=== PATIENT | female | born 1930 | race Caucasian/White ===

== ENCOUNTER 2017-01-20 08:57 | Outpatient (CLI) ==
[2015-08-06 19:55] VITALS: BMI 22.6
[2017-01-20 12:48] LABS: BASOPHILS # (AUTO) 0.1 K/uL (0-0.2); BASOPHILS % (AUTO) 0.8 % (0.0-3.0); EOSINOPHILS # (AUTO) 0.2 K/ul (0.0-0.7); EOSINOPHILS % (AUTO) 2.6 % (0.0-7.0); HEMATOCRIT 42.1 % (37.0-47.0); HEMOGLOBIN 14.9 g/dl (12.0-16.0); IMMATURE GRANULOCYTE % (AUTO) 0.2 % (0.0-5.0); LYMPHOCYTES # (AUTO) 1.2 K/uL (0.60-3.4); LYMPHOCYTES % (AUTO) 18.6 (10.0-50.0); MEAN CORPUSCULAR HEMOGLOBIN 29.6 pg (27.0-31.0); MEAN CORPUSCULAR HGB CONC 35.4 (31.8-35.4); MEAN CORPUSCULAR VOLUME 83.7 fl (81.0-99.0); MONOCYTES # (AUTO) 0.5 K/uL (0.4-2.0); MONOCYTES % (AUTO) 7.6 (0-10); NEUTROPHILS # (AUTO) 4.7 K/ul (2.0-6.9); NEUTROPHILS % (AUTO) 70.2; PLATELET COUNT 170 10^3/uL (140-440); RED BLOOD COUNT 5.03 10^6/ul (4.20-5.40); WHITE BLOOD COUNT 6.62 K/ul (4.6-10.2)
[2017-01-20 13:04] LABS: ALBUMIN 3.2 g/dL (3.4-5.0); ALBUMIN/GLOBULIN RATIO 0.97; ANION GAP 15.1; BILIRUBIN,TOTAL 0.78 mg/dL (0.00-1.20); BUN/CREATININE RATIO 36.61; CALCIUM 9.6 mg/dL (8.2-10.2); CHOL/HDL RATIO 2.8 (4.5-5.5); CREATININE 0.71 mg/dL (0.60-1.30); POTASSIUM 4.1 mmol/L (3.5-5.10); TOTAL PROTEIN 6.5 g/dL (5.8-8.1)
== END 2017-01-20 08:58 | disposition home or self-care (01) ==
LOC: LAB 08:57
PROVIDERS: ATTEND General Practice
DX: E78.5 Hyperlipidemia, unspecified (principal); E11.8 Type 2 diabetes mellitus with unspecified complications; I10 Essential (primary) hypertension; Z79.899 Other long term (current) drug therapy
CPT/HCPCS: 36415; 80053; 80061; 83036; 85025

== ENCOUNTER 2017-01-22 12:16 | Outpatient (CLI) ==
[2015-08-06 19:55] VITALS: BMI 22.6
[2017-01-22 14:44] LABS: BILIRUBIN,URINE Negative (NEGATIVE); KETONES,URINE Negative (NEGATIVE); LEUKOCYTE ESTERASE ,URINE Negative (NEGATIVE); NITRITE,URINE Negative (NEGATIVE); PROTEIN,URINE 3+ (NEGATIVE); URINE, BLOOD 1+ (NEGATIVE)
[2017-01-22 14:45] LABS: ADD URINE MICROSCOPIC YES
[2017-01-22 14:55] LABS: BACTERIA,URINE 3+ (NOT PRESENT)
== END 2017-01-22 12:17 | disposition home or self-care (01) ==
LOC: LAB 12:16
PROVIDERS: ATTEND General Practice
DX: E11.8 Type 2 diabetes mellitus with unspecified complications (principal); I10 Essential (primary) hypertension; E78.5 Hyperlipidemia, unspecified; Z79.899 Other long term (current) drug therapy
CPT/HCPCS: 81001; 87086; 87186

== ENCOUNTER 2017-02-25 11:34 | Inpatient (IN) ==
[2017-02-25 12:04] VITALS: BMI 22.0
[2017-02-25 13:02] LABS: BASOPHILS % (AUTO) 0.6 % (0.0-3.0); EOSINOPHILS # (AUTO) 0.1 K/ul (0.0-0.7); EOSINOPHILS % (AUTO) 1.4 % (0.0-7.0); HEMOGLOBIN 14.3 g/dl (12.0-16.0); IMMATURE GRANULOCYTE % (AUTO) 0.1 % (0.0-5.0); LYMPHOCYTES # (AUTO) 1.2 K/uL (0.60-3.4); LYMPHOCYTES % (AUTO) 16.6 (10.0-50.0); MEAN CORPUSCULAR HEMOGLOBIN 28.7 pg (27.0-31.0); MEAN CORPUSCULAR HGB CONC 34.9 (31.8-35.4); MEAN CORPUSCULAR VOLUME 82.2 fl (81.0-99.0); MONOCYTES # (AUTO) 0.4 K/uL (0.4-2.0); NEUTROPHILS # (AUTO) 5.4 K/ul (2.0-6.9); NEUTROPHILS % (AUTO) 75.3; PLATELET COUNT 161 10^3/uL (140-440); RED BLOOD COUNT 4.99 10^6/ul (4.20-5.40); WHITE BLOOD COUNT 7.22 K/ul (4.6-10.2)
[2017-02-25 13:12] LABS: BILIRUBIN,URINE Negative (NEGATIVE); KETONES,URINE Negative (NEGATIVE); LEUKOCYTE ESTERASE ,URINE Negative (NEGATIVE); NITRITE,URINE Negative (NEGATIVE); PROTEIN,URINE 3+ (NEGATIVE); URINE, BLOOD 1+ (NEGATIVE)
[2017-02-25 13:14] LABS: ADD URINE MICROSCOPIC YES
[2017-02-25 13:15] LABS: BACTERIA,URINE 4+ (NOT PRESENT)
[2017-02-25 13:27] LABS: ALBUMIN 3.4 g/dL (3.4-5.0); ALBUMIN/GLOBULIN RATIO 1.1; ANION GAP 12.7; BILIRUBIN,TOTAL 0.57 mg/dL (0.00-1.20); BUN/CREATININE RATIO 37.5; CALCIUM 9.5 mg/dL (8.2-10.2); CREATININE 0.72 mg/dL (0.60-1.30); POTASSIUM 3.7 mmol/L (3.5-5.10); TOTAL PROTEIN 6.5 g/dL (5.8-8.1)
--- NOTE | 2017-02-25 15:05 | DI ---
EXAM: Chest two views HISTORY: Weakness COMPARISON: 07/29/2015 TECHNIQUE: Two views of the chest were performed FINDINGS: Left-sided cardiac pacer. Granulomatous calcification. No airspace consolidation. There is no pleural effusion or pneumothorax. The heart is normal in size. The mediastinal contour is no rmal. There are no acute abnormalities of the bones. IMPRESSION: No acute cardiopulmonary process.
--- NOTE | 2017-02-25 15:25 | CT ---
EXAM: CT of the head without contrast. HISTORY: Mental status change and repeated falls. COMPARISON: 12/04/2009. TECHNIQUE: Noncontrast CT of the head. FINDINGS: No intracranial hemorrhage or mass effect is identified. There is moderate to severe prominence of t he sulci. The ventricles are normal in size and configuration. Left thalamic, left anterior limb in ternal capsule, left external capsule and right external capsule remote lacunar infarcts are seen. No holt white matter differentiation loss is seen to suggest an acute infarct. Intracranial calcifi ed atherosclerotic plaque is present. The calvarium is intact. The visualized paranasal sinuses are unopacified. IMPRESSION: No evidence of an acute intracranial process. Atrophy and chronic small vessel ischemic changes. Bilateral remote lacunar infarcts. Atherosclerosis.
[2017-02-25] MEDS: COZAAR PO SCH ×2 (15:37→20:07)
--- NOTE | 2017-02-25 16:01 | US ---
EXAM: Ultrasound bilateral carotid duplex. HISTORY: Mental status change. Dizziness and weakness. Repeated falls. COMPARISON: None available. TECHNIQUE: Multiple holt scale and color Doppler images were obtained. FINDINGS: Please note that estimates of internal carotid artery stenoses are based upon NASCET erna montemayor. Right carotid: Mixed plaquing present without visualized 50% or greater stenosis. Peak systolic ve locity measurement in the right internal carotid artery is 0.7 meters per second. Right internal to common carotid artery peak systolic velocity ratio measures 1.7. End diastolic velocity measuremen t in the right internal carotid artery is 0.1 meters per second. Flow in the right vertebral artery is antegrade. Left carotid: Mixed plaquing present without visualized 50% or greater stenosis. Peak systolic jesús ocity measurement in the left internal carotid artery is 1.0 meters per second. Left internal to co mmon carotid artery peak systolic velocity ratio measures 1.9. End diastolic velocity measurement i n the left internal carotid artery measures 0.2 meters per second. Flow in the left vertebral arter y is antegrade. IMPRESSION: 1. No evidence for 50% or greater stenosis in the right or left internal carotid artery. 2. Antegrade flow in both vertebral arteries.
[2017-02-25 16:31] LABS: BILIRUBIN,URINE Negative (NEGATIVE); KETONES,URINE Negative (NEGATIVE); LEUKOCYTE ESTERASE ,URINE Trace (NEGATIVE); NITRITE,URINE Negative (NEGATIVE); PROTEIN,URINE 3+ (NEGATIVE); URINE, BLOOD 1+ (NEGATIVE)
[2017-02-25 16:33] LABS: ADD URINE MICROSCOPIC YES; BACTERIA,URINE 3+ (NOT PRESENT)
[2017-02-25] MEDS ORDERED: NORVASC PO STA (18:42)
[2017-02-25] MEDS: LANTUS SUBCUT SCH (20:07)
[2017-02-25] MEDS: ZOCOR PO SCH (20:07)
[2017-02-26] MEDS ORDERED: COZAAR PO ONE (08:30)
[2017-02-26] MEDS: NORVASC PO SCH (08:39)
[2017-02-26] MEDS: HUMALOG SUBCUT SCH (08:40)
[2017-02-26] MEDS ORDERED: NORVASC PO SCH (09:00)
[2017-02-26] MEDS ORDERED: COZAAR PO SCH ×2 (09:00)
[2017-02-26] MEDS ORDERED: NON-FORMULARY MEDICATION (Amlodipine Besylate [Amlodipine Besylate] 2.5 MG) PO SCH ×22 (09:00)
[2017-02-26] MEDS: LANTUS SUBCUT SCH (20:16)
[2017-02-26] MEDS: ZOCOR PO SCH (20:18)
[2017-02-26] MEDS: COZAAR PO SCH (20:18)
[2017-02-27] MEDS ORDERED: TYLENOL PO STA (02:03)
[2017-02-27 04:40] LABS: BASOPHILS # (AUTO) 0.1 K/uL (0-0.2); BASOPHILS % (AUTO) 0.6 % (0.0-3.0); EOSINOPHILS # (AUTO) 0.2 K/ul (0.0-0.7); EOSINOPHILS % (AUTO) 2.8 % (0.0-7.0); HEMATOCRIT 41.9 % (37.0-47.0); HEMOGLOBIN 14.7 g/dl (12.0-16.0); IMMATURE GRANULOCYTE % (AUTO) 0.2 % (0.0-5.0); LYMPHOCYTES # (AUTO) 1.9 K/uL (0.60-3.4); LYMPHOCYTES % (AUTO) 22.3 (10.0-50.0); MEAN CORPUSCULAR HEMOGLOBIN 28.5 pg (27.0-31.0); MEAN CORPUSCULAR HGB CONC 35.1 (31.8-35.4); MEAN CORPUSCULAR VOLUME 81.2 fl (81.0-99.0); MONOCYTES # (AUTO) 0.6 K/uL (0.4-2.0); MONOCYTES % (AUTO) 7.1 (0-10); NEUTROPHILS # (AUTO) 5.6 K/ul (2.0-6.9); PLATELET COUNT 163 10^3/uL (140-440); RED BLOOD COUNT 5.16 10^6/ul (4.20-5.40)
[2017-02-27 05:03] LABS: ALBUMIN 3.1 g/dL (3.4-5.0); ALBUMIN/GLOBULIN RATIO 1.11; ANION GAP 10.9; BILIRUBIN,TOTAL 0.71 mg/dL (0.00-1.20); BUN/CREATININE RATIO 26.66; CALCIUM 9.6 mg/dL (8.2-10.2); CREATININE 0.75 mg/dL (0.60-1.30); POTASSIUM 3.9 mmol/L (3.5-5.10); TOTAL PROTEIN 5.9 g/dL (5.8-8.1)
[2017-02-27] MEDS: COZAAR PO SCH ×2 (08:39→21:11)
[2017-02-27] MEDS: HUMALOG SUBCUT SCH (08:39)
[2017-02-27] MEDS: NORVASC PO SCH (08:39)
[2017-02-27] MEDS ORDERED: ROCEPHIN ONE (14:39)
[2017-02-27] MEDS ORDERED: CLEOCIN ONE (14:40)
[2017-02-27] MEDS: ROCEPHIN 1 GM in SODIUM CHLORIDE 50 ML IV SCH (14:56)
[2017-02-27] MEDS: LOVENOX SUBCUT SCH (14:56)
[2017-02-27] MEDS: CLEOCIN 300 MG in SODIUM CHLORIDE 100 ML IV SCH ×2 (15:57→18:29)
[2017-02-27] MEDS: ZOCOR PO SCH (21:11)
[2017-02-27] MEDS: LANTUS SUBCUT SCH (21:11)
[2017-02-28] MEDS ORDERED: CLEOCIN ONE ×2 (00:05→04:51)
[2017-02-28] MEDS: CLEOCIN 300 MG in SODIUM CHLORIDE 100 ML IV SCH ×4 (00:11→17:36)
[2017-02-28] MEDS: NORVASC PO SCH (08:11)
[2017-02-28] MEDS: HUMALOG SUBCUT SCH (08:11)
[2017-02-28] MEDS: COZAAR PO SCH ×2 (08:11→21:24)
[2017-02-28] MEDS: ROCEPHIN 1 GM in SODIUM CHLORIDE 50 ML IV SCH (08:13)
[2017-02-28] MEDS: LOVENOX SUBCUT SCH (08:13)
[2017-02-28] MEDS: ZOCOR PO SCH (21:24)
[2017-02-28] MEDS: LANTUS SUBCUT SCH (21:26)
[2017-03-01] MEDS: CLEOCIN 300 MG in SODIUM CHLORIDE 100 ML IV SCH ×3 (00:06→12:07)
[2017-03-01] MEDS: LOVENOX SUBCUT SCH (08:34)
[2017-03-01] MEDS: NORVASC PO SCH (08:34)
[2017-03-01] MEDS: COZAAR PO SCH (08:34)
[2017-03-01] MEDS: ROCEPHIN 1 GM in SODIUM CHLORIDE 50 ML IV SCH (08:35)
[2017-03-01] MEDS: HUMALOG SUBCUT SCH (08:35)
[2017-03-01 10:11] VITALS: BP 144/54; TEMP 98.1
--- NOTE | 2017-03-01 11:54 | RS.CSNOTE ---
PT Case Note Date of Note: 03/01/17 Title of document: PT evaluation note Note: Patient assessed to determine her need for Transitional Care. Patient does show a skilled need for therapy to increase her independence and safety with all mobility. Further assessment and evaluation to be completed.
[2017-03-01 12:03] LABS: BASOPHILS % (AUTO) 0.4 % (0.0-3.0); EOSINOPHILS # (AUTO) 0.2 K/ul (0.0-0.7); HEMATOCRIT 44.4 % (37.0-47.0); HEMOGLOBIN 15.3 g/dl (12.0-16.0); IMMATURE GRANULOCYTE % (AUTO) 0.3 % (0.0-5.0); LYMPHOCYTES # (AUTO) 1.7 K/uL (0.60-3.4); LYMPHOCYTES % (AUTO) 18.7 (10.0-50.0); MEAN CORPUSCULAR HEMOGLOBIN 28.4 pg (27.0-31.0); MEAN CORPUSCULAR HGB CONC 34.5 (31.8-35.4); MEAN CORPUSCULAR VOLUME 82.5 fl (81.0-99.0); MONOCYTES # (AUTO) 0.5 K/uL (0.4-2.0); NEUTROPHILS # (AUTO) 6.5 K/ul (2.0-6.9); NEUTROPHILS % (AUTO) 72.6; PLATELET COUNT 155 10^3/uL (140-440); RED BLOOD COUNT 5.38 10^6/ul (4.20-5.40); WHITE BLOOD COUNT 8.89 K/ul (4.6-10.2)
[2017-03-01 12:07] LABS: ALBUMIN 3.1 g/dL (3.4-5.0); ANION GAP 13.4; BILIRUBIN,TOTAL 0.4 mg/dL (0.00-1.20); BUN/CREATININE RATIO 31.16; CALCIUM 9.8 mg/dL (8.2-10.2); CREATININE 0.77 mg/dL (0.60-1.30); POTASSIUM 4.4 mmol/L (3.5-5.10); TOTAL PROTEIN 6.2 g/dL (5.8-8.1)
--- NOTE | 2017-03-31 13:59 | HP ---
CHIEF COMPLAINT: Increasing weakness, increasing forgetfulness and frequent falls. HISTORY OF PRESENT ILLNESS: The patient was seen today on account of what her ogxywrefzffet-bj-ara has reported to us consisting of increasing forgetfulness and the reported finding her in the floor several times with increasing weakness that the patient is no longer able to walk with a walker which she did before. The patient was seen at the office and indeed it confirmed the complaints. The patient is much weaker and looks sicker. Lungs were clear to auscultation with slightly diminished breath sounds. Heart is normal sinus rhythm and no murmur. The patient was advised admission to the hospital because of extreme weakness for further diagnosis of why. PAST PERSONAL HISTORY: Diabetes Mellitus Hypertension Dyslipidemia Total blindness Aging The patient is being followed by a retinology and she was informed that she had a leaking retina. Bilateral cataract extraction Possibly two small strokes or CVA. Pacemaker inserted July Stress incontinence plus urgency Total knee replacement, left side 2007 Fractured left hip 2011 section FAMILY HISTORY: Father had of skin malignancy Mother of congestive heart failure Diabetes also present in the family Brother had lung carcinoma and Sister had breast carcinoma and from it SOCIAL HISTORY: The patient is and resides with her who is a little bit older than her. He is the total ambulatory care nurse for her. MEDICATIONS: Simvastatin 10mg daily Amlodipine 2.5mg daily Insulin Lispro Humalog 10 unit SUBCUT daily Insulin Glargine (Lantus) 10 units SUBCUT at bedtime preferably about 9pm ALLERGIES: Faizan Statin REVIEW OF SYSTEMS: CONSTITUTIONAL: The patient had no fever and no chills but markedly fatigued. RN CLINICAL RESOURCE: The patient is very forgetful. Somewhat drowsy today. No history fo seizures. She had fallen several times probably from the weakness plus some dizziness and also because she is completely blind. She can perceive light VISUAL: She is completely blind. She can perceive light AUDITORY: Hearing is decreased but denies any pain or tinnitus. RESPIRATORY: No significant cough and no history of hemoptysis CARDIOVASCULAR: Denies any chest pain or chest oppression GASTROINTESTINAL: The patient appetite is decreased and the patient had been continuously loosing weight. The patient refused to consider colonoscopy as well as the . No nausea or vomiting. No abdominal pain GENITOURINARY: The patient has stress incontinence. She is using a diaper type contraption ENDOCRINE: The patient is type I diabetic. She is on insulin and seems to be doing quite well with the medication. INTEGUMENT: No rash and no pleuritis. No does have an elbow laceration on the posterior elbow right. The patient is unable to assist in her transfer needed to two people to get her up. HEMATOLOGIC: No history of prolonged bleeding. PSYCHIATRIC: Affect is down. The patient is depressed on the account that she is blind. PHYSICAL EXAMINATION: GENERAL: The patient is an 86 year old white female who is alert but very weak and responses to some verbal commands. She had been found in the floor several times by her . The Hbnbppvvwdajp-fe-jvz mentions that she is getting more forgetful. HEAD: Unremarkable FACE: Symmetrical and equal with no facial weakness and no significant weakness in the frontal maxillary sinus areas to palpation under pressure. EYES: Pupils equal/reactive to light. Conjunctivae not pale. Sclerae not icteric. MOUTH: Unremarkable THROAT: No inflammation, tumors or exudate. NECK: No masses. No bruit. No tenderness. No rigidity. CHEST: Symmetrical and equal with good expansion and no remarkable tenderness. Ribs are prominent LUNGS: Breaths sounds are heard in both sides no rales or wheezing. Somewhat diminished. HEART: Audible and regular with good tones. No murmurs. The patient has a pacemaker in the left upper chest. ABDOMEN: Flat. Soft with no masses. No tenderness and no bruit. LOWER EXTREMITIES: Symmetrical and equal with some bilateral ankle and leg edema UPPER EXTREMITIES: Symmetrical and equal ASSESSMENT: 1. Recurrent falls with increasing weakness 2. Increasing Dementia 3. Type I Diabetes Mellitus 4. Total blindness 5. Hip left replacement, post fracture 6. History of left TKR MTDD
--- NOTE | 2017-04-08 11:50 | DS ---
The patient was discharged to [facility] on 03/01/17. PATIENT IDENTIFICATION: 86 year old female who was seen at the office initially because of extreme weakness, confusion and several falls and had been found in the floor several times by her and the has to ask for help to get her since he is not able to do it by himself. 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 The patient had avulsion of the skin on the right elbow. The patient is unable to assist transferring from examining table to wheelchair. HOSPITAL COURSE: VITAL SIGNS: On admission showed a temperature of 97.8, pulse 62, blood pressure 173/84, respiratory rate 20, oxygen saturation 93 at room air. 5'2", 120 pounds and 11 ounces. We were not able to weigh the patient at the office since she could not stand on the scale. Initial workup consisted of CBC- essentially normal, chemistry-elevated BUN 27, Procalcitonin 0.05, urinalysis 3 + protein, 2+ bacteria, negative nitrite, 1+ leukocyte esterase, specific gravity 1.020. The patient on admission refused any food. The patient was given IV fluids with electrolyte replacement. Chest x-ray showed no acute cardiopulmonary process. Head CT on admission showed no evidence of acute intracranial process. Carotid Doppler studies showed no evidence for more than 50% stenosis of the right and left internal carotid arteries. Antegrade flow of both vertebrals. All of these were done on the day of admission. The patient on the following day had a better appetite and did consume almost 100% of the snacks. There is some redness in the area of the avulsion on the right elbow. Examination revealed an individual that is somewhat lethargic, but answers questions. LUNGS: Clear. HEART: Normal sinus rhythm. This is probably due to a pacemaker. LOWER EXTREMITIES: No edema. UPPER EXTREMITIES: Avulsion laceration on the right elbow. The patient's insulin, Lantus and Humalog, were continued at the same dose. Home medications also were continued. The patient's urine culture showed e.coli , ESBL negative and sensitive to Rocephin and so the patient was given 1 gram of Rocephin IV beginning 02/27/17. The wound culture showed staph aureus methicillin sensitive and the patient was given Clindamycin 300 mg every six hours IV. The patient had tolerated the IV medications without any adverse effects. The patient would require more days of hospitalization for this IV medication. The patient also is still very weak and she is not able to walk. The patient remained afebrile and the pulse remained between 72-80 and the blood pressure is fluctuating with as high as 160 and 170's. The patient on 02/10 was discharged from acute care to [facility] because of the need to continue the antibiotics regimen. CBC on 03/01/17 showed a normal WBC, normal hemoglobin and hematocrit. BUN is at 24 and E GFR is 71. Blood sugar is 196. The patient's appetite was variable and sometimes she refused to eat and sometimes she eats between 75 to 100%. Confusion may have been aggravated by the urinary tract infection. The patient at the time of discharge from acute care to [facility] is alert and responsive with movement of all extremities. She is still weak. She is encouraged to ambulate with someone. The patient still needed two personnel to assist her with a gait belt. The patient at the time of discharge is alert and responsive, but still weak. LUNGS: Clear. HEART: Normal sinus rhythm. This patient is receiving Rocephin 1 gram daily and Clindamycin 300 mg every 6 hours. The patient is much more alert now. Her color is better. She is not as confused and less lethargic than at admission. FINAL DIAGNOSES: 1. GENERALIZED WEAKNESS, ETIOLOGY UNDETERMINED 2. CONFUSION WHICH MAYBE AGGRAVATED BY URINARY TRACT INFECTION 3. URINARY TRACT INFECTION, E.COLI 4. AVULSION ABRASION RIGHT ELBOW, STAPH AUREUS, METHICILLIN SENSITIVE 5. DIABETES MELLITUS TYPE I 6. TOTAL BLINDNESS 7. HYPERTENSION 8. PERIPHERAL ARTERIAL DISEASE PROGNOSIS: Poor. MTDD
--- NOTE | 2017-04-08 11:55 | PN ---
DATE OF VISIT: 02/26/17 The patient is alert and responsive with no facial weakness. She still is very weak and she needed two people to assist her to get up, which is very difficult. Her legs doesn't have any strength to keep her up. LUNGS: Clear. HEART: Normal sinus rhythm. Urinalysis abnormal, awaiting culture and sensitivity, as well as the culture and sensitivity of the avulsion laceration of the right elbow. We will continue IV fluids and try to increase her oral intake. BETTY
--- NOTE | 2017-04-08 12:02 | PN ---
DATE OF VISIT: 02/27/17 The patient is alert and responsive and not dyspneic, nor tachypneic with no cyanosis. VITAL SIGNS: At 6 p.m. showed a temperature of 98.5, pulse 77, blood pressure 181/71, respiratory rate 20, oxygen saturation 97 at room air. LUNGS: Clear, although breath sounds are diminished. HEART: Regular most of the time, probably secondary to the pacemaker. ABDOMEN: Soft with no remarkable tenderness and scaphoid. No masses palpable. Bowel sounds are active. LOWER EXTREMITIES: No remarkable edema. The urine culture showed e.coli and wound culture showed staph aureus, methicillin sensitive. This patient is then initiated with Clindamycin at 300 mg every 6 hours IV and Rocephin 1 gram IV daily. CONDITION: Slightly improved and general weakness still persistent. MTDD
--- NOTE | 2017-04-08 12:07 | PN ---
DATE OF VISIT: 02/28/17 The patient at 5:57 p.m. today, 02/28/17 is alert and responsive and somewhat cheerful. VITAL SIGNS: Temperature 98.1, pulse 69, blood pressure 143/61. Respiratory rate 20, oxygen saturation 94 at room air. LUNGS: Clear to auscultation in both sides. HEART: Normal sinus rhythm most of the time. ABDOMEN: Nontender. The patient refused her food yesterday, but did consume 75% today. She had a good oral intake today at 1160. Urine output 300 cc. CONDITION: Stable, but not much better. MTDD
== END 2017-03-01 13:24 | disposition swing bed (61) | DRG 948 ==
LOC: MEDSURG B 11:34
PROVIDERS: ADMIT General Practice; ATTEND General Practice
DX: R53.1 Weakness (principal); N39.0 Urinary tract infection, site not specified; B96.20 Unspecified Escherichia coli [E. coli] as the cause of diseases classified elsewhere; R41.0 Disorientation, unspecified; S51.011A Laceration without foreign body of right elbow, initial encounter; B95.61 Methicillin susceptible Staphylococcus aureus infection as the cause of diseases classified elsewhere; R29.6 Repeated falls; E10.9 Type 1 diabetes mellitus without complications; I10 Essential (primary) hypertension; I73.9 Peripheral vascular disease, unspecified; H54.0 Blindness, both eyes; Z16.11 Resistance to penicillins; Z16.39 Resistance to other specified antimicrobial drug; Z79.4 Long term (current) use of insulin; Z79.899 Other long term (current) drug therapy
CPT/HCPCS: 36415; 80053; 81001; 82962; 83036; 83880; 84145; 84443; 85025; 87040; 87070; 87086; 87186; 93005; 93010

== ENCOUNTER 2017-03-01 13:37 | Inpatient (IN) ==
--- NOTE | 2017-03-01 14:10 | RS.PTINEVL ---
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 States she is familiar with her home set up and more comfortable there. - Level of function Prior to this admission, the patient could do the following:: Independent Ambulation Abilities prior to this admission: Patient was assisted with most activities to do her lack of vision. States her does everything for her. Current Level of Function: Partially Dependent Current Equipment Used at Home: rolling walker Interventions - Objective Patient Orientation: Person, Place, Situation Observation: Patient with multiple abrasions to legs and arms. Range of Motion - ROM Right Upper Extremity AROM: WFL's Left Upper Extremity AROM: WFL's Right Lower Extremity AROM: WFL's Left Lower Extremity AROM: WFL's Muscle Strength - Muscle Strength Right Lower Extremity Strength: Mild Weakness Left Lower Extremity Strength: Mild Weakness Sensation - Sensation Comments: Reports sensation to light touch is intact. Balance - Sitting Balance and Reactions Static Sitting Balance: Good Dynamic Sitting Balance: Good - Standing Balance and Reactions Static Standing Balance: Fair (+) Dynamic Standing Balance: Fair (+) Functional Mobility - Transfers Sit to Stand: Mod Assist, 1 person assist, Verbal Cues, Tactile Cues Stand to Sit: Mod Assist, 1 person assist, Verbal Cues, Tactile Cues Stand Pivot Transfers: Mod Assist, 1 person assist, 2 person assist, Verbal Cues , Tactile Cues - Safety Awareness Safety Awareness: Poor Ambulation - Ambulation Weight Bearing Status: FWB Assistive Device Used: Rolling Walker Distance: 80 feet, then needed wheelchair to take her back to room Assistance needed with Ambulation: Min Assist, 1 person assist, Verbal Cues, Tactile Cues Quality of Ambulation: Patient demonstrates very slow ambulation. Demonstrates short stride bilaterally. Ambulation Comments: Upon returning down the winn towards her room, Mrs. Diaz reported feeling like she would fall. She started to lose her balance anteriorly, but I was able to stabilize her and get assistance to help her into a wheelchair. She then transferred from the W/C to the chair with moderate assistance of 2 and demonstrated difficulty moving her feet as she "plopped" into the chair. Factors Affecting Ambulation: Decreased Balance (vision impairment), Weakness, Decreased Safety Treatment time - Time with patient Total treatment time: 18 (mins) Assessment - Assessment Problem List:: Decreased level of function, Requires training/education, Decreased safety/Risk of falls, Weakness Rehab Potential: Good Further Therapy Indicated?: Yes Short Term Goals GOAL #1: Sit to stand with min X 1 and verbal cues. Goal to be met by: 03/04/17 GOAL #2: Supine to sit with min X 1 and verbal cues. Goal to be met by: 03/04/17 GOAL #3: Ambulation with AAD with min-CGA of one with good safety. Goal to be met by: 03/04/17 Director Service Goals GOAL #1: All bed mobility with CGA of 1. Goal to be met by: 03/11/17 GOAL #2: All transfers with CGA of 1 with good safety. Goal to be met by: 03/11/17 GOAL #3: Ambulation with AAD with CGA and good safety household distances. Goal to be met by: 03/11/17 Plan Plan of Care: Therapeutic EX, Neuromuscular Re-Educ, Therapeutic Activity, Self- Care/Home Management Frequency of Treatment: 1-2 X day, as tolerated Duration of Treatment: 10 days Anticipated Discharge Destination: Home
[2017-03-01 14:25] VITALS: BMI 21.9
[2017-03-01] MEDS: CLEOCIN 300 MG in SODIUM CHLORIDE 100 ML IV SCH ×2 (17:44→23:57)
[2017-03-01] MEDS: LANTUS SUBCUT SCH (20:46)
[2017-03-01] MEDS: COZAAR PO SCH (20:46)
[2017-03-01] MEDS: ZOCOR PO SCH (20:46)
[2017-03-02 04:22] LABS: BASOPHILS % (AUTO) 0.6 % (0.0-3.0); EOSINOPHILS # (AUTO) 0.2 K/ul (0.0-0.7); EOSINOPHILS % (AUTO) 3.2 % (0.0-7.0); HEMATOCRIT 40.4 % (37.0-47.0); HEMOGLOBIN 14.1 g/dl (12.0-16.0); IMMATURE GRANULOCYTE % (AUTO) 0.3 % (0.0-5.0); LYMPHOCYTES # (AUTO) 1.5 K/uL (0.60-3.4); MEAN CORPUSCULAR HEMOGLOBIN 28.8 pg (27.0-31.0); MEAN CORPUSCULAR HGB CONC 34.9 (31.8-35.4); MEAN CORPUSCULAR VOLUME 82.4 fl (81.0-99.0); MONOCYTES # (AUTO) 0.6 K/uL (0.4-2.0); MONOCYTES % (AUTO) 8.6 (0-10); NEUTROPHILS # (AUTO) 4.3 K/ul (2.0-6.9); NEUTROPHILS % (AUTO) 65.3; PLATELET COUNT 164 10^3/uL (140-440); WHITE BLOOD COUNT 6.64 K/ul (4.6-10.2)
[2017-03-02 04:41] LABS: ALBUMIN 2.9 g/dL (3.4-5.0); ALBUMIN/GLOBULIN RATIO 1.21; ANION GAP 9.4; BILIRUBIN,TOTAL 0.47 mg/dL (0.00-1.20); BUN/CREATININE RATIO 34.61; CALCIUM 9.8 mg/dL (8.2-10.2); CREATININE 0.78 mg/dL (0.60-1.30); POTASSIUM 4.4 mmol/L (3.5-5.10); TOTAL PROTEIN 5.3 g/dL (5.8-8.1)
[2017-03-02] MEDS: CLEOCIN 300 MG in SODIUM CHLORIDE 100 ML IV SCH ×4 (05:14→23:33)
[2017-03-02] MEDS: HUMALOG SUBCUT SCH (08:55)
[2017-03-02] MEDS ORDERED: NON-FORMULARY MEDICATION (Amlodipine Besylate [Amlodipine Besylate] 5 MG) PO SCH (09:00)
[2017-03-02] MEDS: LOVENOX SUBCUT SCH (09:02)
[2017-03-02] MEDS: NORVASC PO SCH (09:02)
[2017-03-02] MEDS: ROCEPHIN 1 GM in SODIUM CHLORIDE 50 ML IV SCH (09:03)
[2017-03-02] MEDS: COZAAR PO SCH ×2 (09:03→20:31)
--- NOTE | 2017-03-02 10:01 | RS.OTINEVL ---
Subjective - Patient information Date of Evaluation: 03/02/17 Date of Arrival on Unit: 02/25/17 Admitted From:: Home Usual Living Arrangement: With Spouse Living Arrangement Comments: has a ramp, uses a rolling walker, has as a caregiver Home Environment: House, Rail, Ramp Medical History: Diabetes Medical History Comments:: Pt passed out and was brought to the hospital from home. Pt is diabetic and takes insulin. Pt has Had a left BASSAM, and a L TKA. HTN. fell into car and scratched her elbow. LATEX ALLERGY?: No Surgical History: Knee Replacement, Hip Replacement Surgical History Comments:: Left TKA, Left BASSAM Subjective Information/ Patient Comments:: Pt reports she can see white best. - Level of function Prior to this admission, the patient could do the following:: Independent Ambulation Abilities prior to this admission: Pt lives at home with her . He is her CG. Pt at home was using a RW and going to the toilet herself and completing Hygiene herself. Pt reports she wears house dresses and panties at home. Pt reports her helps her put her clothes on. Current Level of Function: Partially Dependent Current Equipment Used at Home: rolling walker Pain Assessment - Pain Pain Score: 0 Interventions - Objective Patient Orientation: Person, Place, Situation Current Interventions: IV's Observation: Pt is weak and does not do much for herself. Interventions - ROM Right Upper Extremity AROM: WFL's Left Upper Extremity AROM: WFL's - Strength Right Upper Extremity Strength: Mild Weakness Left Upper Extremity Strength: Mild Weakness - Sensation Right Upper Extremity Sensation: Intact/Normal Left Upper Extremity Sensation: Intact/Normal Balance - Sitting Balance Static Sitting Balance: Fair Dynamic Sitting Balance: Fair - Standing Balance Static Standing Balance: Poor Dynamic Standing Balance: Poor - Comments Balance Assessment Comments: Pt has the most difficulty completing sit to stand. Pt pushes back and has difficulty completing standing without assistance. ADL Skills - Self Feeding Self Feeding: Independent, Set Up Only - Grooming Grooming: Min Assist - Bathing Bathing UE: Min Assist Bathing LE: Min Assist - Dressing Dressing UE: Min Assist Dressing LE: Mod Assist - Toilet Management Toileting Management: Supervision, Min Assist Functional Mobility - Bed Mobility Rolling R/L: Min Assist Scooting: Min Assist Supine to Sit: Min Assist Sit to Supine: Min Assist - Transfers Sit to Stand: Mod Assist Stand to Sit: Min Assist Stand Pivot Transfers: Mod Assist, 1 person assist - Ambulation Weight Bearing Status: FWB Assistive Device Used: Rolling Walker Assistance needed with Ambulation: Min Assist - Safety Awareness Safety Awareness: Fair Additional Treatment Performed - Additional units charged ADL: 25 - Time with patient Total treatment time: 45 Activities Patient Interests:: Listening to Music Patient Education Patient Education: Education of diagnosis, Home Exercise Program, Education of Plan of Care Teaching Recipient: Patient, Significant Other Teaching Methods: Discussion Assessment Problem List:: Decreased level of function, Requires training/education, Decreased safety/Risk of falls, Weakness Rehab Potential: Good Further Therapy Indicated?: Yes Short Term Goals - Goals GOAL 1: CGA with functional mobility Goal to be met by: 08/20/15 Progress towards goal: Met GOAL 2: F+ ADL balance Goal to be met by: 08/20/15 Progress towards goal: Met GOAL 3: Mod (A) with self care Goal to be met by: 08/20/15 Progress towards goal: Met Nurse Intern Goals GOAL 1: NH with functional mobility Goal to be met by: 03/16/17 Progress towards goal: Met GOAL 2: Good ADL balance Goal to be met by: 03/16/17 Progress towards goal: Met GOAL 3: Min (A) with self care Goal to be met by: 03/16/17 Progress towards goal: Not Met Plan Plan of Care: Therapeutic EX, Neuromuscular Re-Educ, Therapeutic Activity, Self- Care/Home Management Frequency of Treatment: 1-2 X day, as tolerated Duration of Treatment: 2 Weeks Anticipated Discharge Destination: Home
[2017-03-02] MEDS: LANTUS SUBCUT SCH (20:32)
[2017-03-02] MEDS: ZOCOR PO SCH (20:32)
[2017-03-02] MEDS ORDERED: CLEOCIN ONE (23:28)
[2017-03-03] MEDS: CLEOCIN 300 MG in SODIUM CHLORIDE 100 ML IV SCH ×4 (05:43→23:55)
[2017-03-03] MEDS: NORVASC PO SCH (08:22)
[2017-03-03] MEDS: ROCEPHIN 1 GM in SODIUM CHLORIDE 50 ML IV SCH (08:22)
[2017-03-03] MEDS: COZAAR PO SCH ×2 (08:22→20:30)
[2017-03-03] MEDS: LOVENOX SUBCUT SCH (08:22)
[2017-03-03] MEDS: HUMALOG SUBCUT SCH (08:23)
[2017-03-03] MEDS: LANTUS SUBCUT SCH (20:28)
[2017-03-03] MEDS: ZOCOR PO SCH (20:29)
[2017-03-04] MEDS: CLEOCIN 300 MG in SODIUM CHLORIDE 100 ML IV SCH ×3 (06:10→18:55)
[2017-03-04] MEDS: LOVENOX SUBCUT SCH (08:28)
[2017-03-04] MEDS: ROCEPHIN 1 GM in SODIUM CHLORIDE 50 ML IV SCH (08:28)
[2017-03-04] MEDS: COZAAR PO SCH ×2 (08:29→21:55)
[2017-03-04] MEDS: NORVASC PO SCH (08:29)
[2017-03-04] MEDS: HUMALOG SUBCUT SCH (08:36)
[2017-03-04] MEDS: SILVADENE CREAM TP SCH ×2 (13:12→21:55)
[2017-03-04] MEDS: ZOCOR PO SCH (21:55)
[2017-03-04] MEDS: LANTUS SUBCUT SCH (21:55)
[2017-03-05] MEDS: CLEOCIN 300 MG in SODIUM CHLORIDE 100 ML IV SCH ×5 (00:04→23:39)
[2017-03-05] MEDS: COZAAR PO SCH ×2 (09:04→20:59)
[2017-03-05] MEDS: HUMALOG SUBCUT SCH (09:05)
[2017-03-05] MEDS: NORVASC PO SCH (09:06)
[2017-03-05] MEDS: LOVENOX SUBCUT SCH (09:06)
[2017-03-05] MEDS: SILVADENE CREAM TP SCH ×2 (09:06→20:56)
[2017-03-05] MEDS: ROCEPHIN 1 GM in SODIUM CHLORIDE 50 ML IV SCH (09:07)
[2017-03-05] MEDS: LANTUS SUBCUT SCH (20:57)
[2017-03-05] MEDS: ZOCOR PO SCH (21:00)
[2017-03-06] MEDS: CLEOCIN 300 MG in SODIUM CHLORIDE 100 ML IV SCH ×4 (05:47→23:11)
[2017-03-06] MEDS: HUMALOG SUBCUT SCH (07:57)
[2017-03-06] MEDS: ROCEPHIN 1 GM in SODIUM CHLORIDE 50 ML IV SCH (08:38)
[2017-03-06] MEDS: SILVADENE CREAM TP SCH ×2 (08:39→20:30)
[2017-03-06] MEDS: COZAAR PO SCH ×2 (08:39→20:29)
[2017-03-06] MEDS: LOVENOX SUBCUT SCH (08:39)
[2017-03-06] MEDS: NORVASC PO SCH (08:40)
[2017-03-06] MEDS: ZOCOR PO SCH (20:29)
[2017-03-06] MEDS: LANTUS SUBCUT SCH (20:30)
[2017-03-07] MEDS: CLEOCIN 300 MG in SODIUM CHLORIDE 100 ML IV SCH (05:02)
[2017-03-07] MEDS: SILVADENE CREAM TP SCH ×2 (08:03→20:40)
[2017-03-07] MEDS: NORVASC PO SCH (08:04)
[2017-03-07] MEDS: COZAAR PO SCH ×2 (08:04→20:41)
[2017-03-07] MEDS: LOVENOX SUBCUT SCH (08:04)
[2017-03-07] MEDS: HUMALOG SUBCUT SCH (08:05)
[2017-03-07] MEDS: ROCEPHIN 1 GM in SODIUM CHLORIDE 50 ML IV SCH (08:06)
[2017-03-07] MEDS: LANTUS SUBCUT SCH (20:41)
[2017-03-07] MEDS: ZOCOR PO SCH (20:41)
[2017-03-08 04:39] LABS: BASOPHILS % (AUTO) 0.6 % (0.0-3.0); EOSINOPHILS # (AUTO) 0.2 K/ul (0.0-0.7); EOSINOPHILS % (AUTO) 3.3 % (0.0-7.0); HEMOGLOBIN 13.1 g/dl (12.0-16.0); IMMATURE GRANULOCYTE % (AUTO) 0.5 % (0.0-5.0); LYMPHOCYTES # (AUTO) 1.8 K/uL (0.60-3.4); LYMPHOCYTES % (AUTO) 28.8 (10.0-50.0); MEAN CORPUSCULAR HGB CONC 34.5 (31.8-35.4); MEAN CORPUSCULAR VOLUME 84.1 fl (81.0-99.0); MONOCYTES # (AUTO) 0.5 K/uL (0.4-2.0); MONOCYTES % (AUTO) 7.2 (0-10); NEUTROPHILS # (AUTO) 3.8 K/ul (2.0-6.9); NEUTROPHILS % (AUTO) 59.6; PLATELET COUNT 163 10^3/uL (140-440); RED BLOOD COUNT 4.52 10^6/ul (4.20-5.40); WHITE BLOOD COUNT 6.36 K/ul (4.6-10.2)
[2017-03-08 05:02] LABS: ALBUMIN 2.9 g/dL (3.4-5.0); ANION GAP 11.4; BILIRUBIN,TOTAL 0.26 mg/dL (0.00-1.20); BUN/CREATININE RATIO 30.13; CALCIUM 9.5 mg/dL (8.2-10.2); CREATININE 0.73 mg/dL (0.60-1.30); POTASSIUM 4.4 mmol/L (3.5-5.10); TOTAL PROTEIN 5.8 g/dL (5.8-8.1)
[2017-03-08 07:22] LABS: ADD URINE MICROSCOPIC YES; BILIRUBIN,URINE Negative (NEGATIVE); KETONES,URINE Negative (NEGATIVE); LEUKOCYTE ESTERASE ,URINE 1+ (NEGATIVE); NITRITE,URINE Negative (NEGATIVE); PROTEIN,URINE 3+ (NEGATIVE); URINE, BLOOD Trace-intact (NEGATIVE)
[2017-03-08 07:39] LABS: BACTERIA,URINE TRACE (NOT PRESENT)
[2017-03-08] MEDS: SILVADENE CREAM TP SCH ×2 (08:06→21:14)
[2017-03-08] MEDS: HUMALOG SUBCUT SCH (08:06)
[2017-03-08] MEDS: NORVASC PO SCH (08:06)
[2017-03-08] MEDS: COZAAR PO SCH ×2 (08:06→21:13)
[2017-03-08] MEDS: LOVENOX SUBCUT SCH (08:07)
[2017-03-08] MEDS: LANTUS SUBCUT SCH (21:13)
[2017-03-08] MEDS: ZOCOR PO SCH (21:13)
[2017-03-09] MEDS: HUMALOG SUBCUT SCH (08:11)
[2017-03-09] MEDS: NORVASC PO SCH (08:13)
[2017-03-09] MEDS: COZAAR PO SCH ×2 (08:13→20:26)
[2017-03-09] MEDS: LOVENOX SUBCUT SCH (08:13)
--- NOTE | 2017-03-09 11:51 | PN ---
Mrs. Diaz states she will be glad to get home. States she will be more comfortable in her own surroundings that she is use to. She has been receiving Physical Therapy for strengthening, increased independence with mobility, and safety to decrease her risk for falls. She has shown progress since the initial evaluation on 03/01/17. Her transfers initially required moderate assistance of one and verbal and tactile cues. As of today, she is transferring with Contact Guard to minimal assistance of one. Safety awareness has improved from poor to fair. Ambulation has also improved. During the initial evaluation, patient required minimal assistance of one, but needed more assistance and could not continue due to impaired balance. She continues to require minimal assistance, but is demonstrating improved step length, improved balance, and safety awareness. She is progressing well towards all goals: Short Term Goals GOAL #1: Sit to stand with min X 1 and verbal cues. Met 03/05/17 GOAL #2: Supine to sit with min X 1 and verbal cues. Goal to be met by: 03/10/17 Progressing GOAL #3: Ambulation with AAD with min-CGA of one with good safety. Goal to be met by: 03/10/17 Progressing Fpc Goals GOAL #1: All bed mobility with CGA of 1. Goal to be met by: 03/13/17 progressing GOAL #2: All transfers with CGA of 1 with good safety. Goal to be met by: 03/13/17 progressing GOAL #3: Ambulation with AAD with CGA and good safety household distances. Goal to be met by: 03/13/17 progressing Ms. Diaz demonstrates potential to gain further safety and independence with her mobility. Increased safety instructions for her and her spouse will help decrease her risk for falls. Education with Mr. Diaz will help him understand that he needs to avoid rushing her at home and enable her to do more for herself with assistance as needed for safety. Plan to continue strengthening and safety training with all mobility. GIOVANNID
[2017-03-09] MEDS: ZOCOR PO SCH (20:26)
[2017-03-09] MEDS: SILVADENE CREAM TP SCH (20:27)
[2017-03-09] MEDS: LANTUS SUBCUT SCH (20:27)
[2017-03-10] MEDS: SILVADENE CREAM TP SCH ×3 (07:22→20:30)
--- NOTE | 2017-03-10 07:53 | PN ---
DATE OF VISIT: 03/07/17 The patient today is alert and claims to be feeling better. She wonders when she is going home. I told her that I am depending upon the Physical Therapist, as well as the Occupational Therapist to tell me that she has improved to the point that she could not longer be better while in the hospital. They have not indicated that to me. The indication is that she is improving. The patient had been receiving Ceftriaxone, as well as Clindamycin for the last eight days and this will be discontinued today. The patient is alert and responsive with a good color. Her skin texture is much than when she was admitted to the hospital. HEART: Audible with good tones. ABDOMEN: Soft and nontender. LOWER EXTREMITIES: No tenderness in calf muscles. UPPER EXTREMITIES: The area on the right elbow still is raw, but no drainage. Repeat urinalysis is ordered for the next day to see if there is any residual infection. MTDD
--- NOTE | 2017-03-10 08:04 | PN ---
DATE OF VISIT: 03/08/17 The patient today is alert and doing well. She has good color. Not dyspneic, nor tachypneic. HEART: Normal sinus rhythm. LUNGS: Clear. CHEST: The patient denies any chest pain. ABDOMEN: The patient denies any abdominal pain. The patient has no nausea. GI: No problems swallowing. LOWER EXTREMITIES: No tenderness and no significant edema. Her main problem is total blindness. VITAL SIGNS: Temperature at 5:53 p.m. 03/08/2017, temperature 98.4, pulse 83, blood pressure 161/64, respiratory rate 18, oxygen saturation 98 at room air. The patient has no recurrence of urinary symptoms. Urine collected today for urinalysis and culture. The patient previously has Escherichia Coli in the urine and was sensitive to Ceftriaxone. The patient did receive IV i gram daily for the last eight days. Wound culture of right elbow showed Staph Aureus Methicillin sensitive and is treated with Clindamycin 300 mg every six hours. Both of these medications have been discontinued yesterday. CONDITION: Improved and stable. Physical Therapy, as well as Occupational had been working with her and she had been able to walk. [facility] INSANEJeanette
[2017-03-10] MEDS: COZAAR PO SCH ×2 (08:08→20:26)
[2017-03-10] MEDS: NORVASC PO SCH (08:08)
[2017-03-10] MEDS: LOVENOX SUBCUT SCH (08:08)
[2017-03-10] MEDS: HUMALOG SUBCUT SCH (08:10)
--- NOTE | 2017-03-10 08:42 | PN ---
DATE OF VISIT: 03/09/17 The patient is seen this morning and she was alert and feeling better and her color his good. Her skin texture is much better. VITAL SIGNS: Her temperature was 97.6, pulse 74, blood pressure 119/51, respiratory rate 16, oxygen saturation 95 at room air at 10:15 in the morning today, 03/09/2017. HEART: Normal sinus rhythm. LUNGS: Clear. ABDOMEN: Nontender. LEGS: No tenderness. The Physical Therapy may probably be able to complete their exercise program by . I told the patient when she asked me whether she can go home and when. I told her most likely . The was present, Ryan, during the course of the this discussion. BETTY
[2017-03-10] MEDS: ZOCOR PO SCH (20:25)
[2017-03-10] MEDS: LANTUS SUBCUT SCH (20:26)
[2017-03-11] MEDS: SILVADENE CREAM TP SCH ×2 (08:16→21:05)
[2017-03-11] MEDS: COZAAR PO SCH ×2 (08:16→21:03)
[2017-03-11] MEDS: NORVASC PO SCH (08:17)
[2017-03-11] MEDS: HUMALOG SUBCUT SCH (08:17)
[2017-03-11] MEDS: LOVENOX SUBCUT SCH (08:17)
[2017-03-11] MEDS: LANTUS SUBCUT SCH (21:02)
[2017-03-11] MEDS: ZOCOR PO SCH (21:04)
[2017-03-12 05:34] VITALS: TEMP 97.9
[2017-03-12] MEDS: LOVENOX SUBCUT SCH (08:12)
[2017-03-12] MEDS: COZAAR PO SCH (08:13)
[2017-03-12] MEDS: HUMALOG SUBCUT SCH (08:13)
[2017-03-12] MEDS: NORVASC PO SCH (08:13)
[2017-03-12] MEDS: SILVADENE CREAM TP SCH (08:14)
[2017-03-12] MEDS ORDERED: HYDROCHLOROTHIAZIDE PO ONE (09:15)
[2017-03-12 12:24] VITALS: BP 140/54
--- NOTE | 2017-03-31 13:55 | HP ---
CHIEF COMPLAINT: Increasing weakness, increasing forgetfulness and frequent falls. HISTORY OF PRESENT ILLNESS: The patient was seen today on account of what her dxvdwoswuvkmu-fn-uak has reported to us consisting of increasing forgetfulness and the reported finding her in the floor several times with increasing weakness that the patient is no longer able to walk with a walker which she did before. The patient was seen at the office and indeed it confirmed the complaints. The patient is much weaker and looks sicker. Lungs were clear to auscultation with slightly diminished breath sounds. Heart is normal sinus rhythm and no murmur. The patient was advised admission to the hospital because of extreme weakness for further diagnosis of why. PAST PERSONAL HISTORY: Diabetes Mellitus Hypertension Dyslipidemia Total blindness Aging The patient is being followed by a retinology and she was informed that she had a leaking retina. Bilateral cataract extraction Possibly two small strokes or CVA. Pacemaker inserted July Stress incontinence plus urgency Total knee replacement, left side 2007 Fractured left hip 2011 section FAMILY HISTORY: Father had of skin malignancy Mother of congestive heart failure Diabetes also present in the family Brother had lung carcinoma and Sister had breast carcinoma and from it SOCIAL HISTORY: The patient is and resides with her who is a little bit older than her. He is the total healthcare translator for her. MEDICATIONS: Simvastatin 10mg daily Amlodipine 2.5mg daily Insulin Lispro Humalog 10 unit SUBCUT daily Insulin Glargine (Lantus) 10 units SUBCUT at bedtime preferably about 9pm ALLERGIES: Faizan Statin REVIEW OF SYSTEMS: CONSTITUTIONAL: The patient had no fever and no chills but markedly fatigued. MINING DETAIL DRAFTSPERSON: The patient is very forgetful. Somewhat drowsy today. No history fo seizures. She had fallen several times probably from the weakness plus some dizziness and also because she is completely blind. She can perceive light VISUAL: She is completely blind. She can perceive light AUDITORY: Hearing is decreased but denies any pain or tinnitus. RESPIRATORY: No significant cough and no history of hemoptysis CARDIOVASCULAR: Denies any chest pain or chest oppression GASTROINTESTINAL: The patient appetite is decreased and the patient had been continuously loosing weight. The patient refused to consider colonoscopy as well as the . No nausea or vomiting. No abdominal pain GENITOURINARY: The patient has stress incontinence. She is using a diaper type contraption ENDOCRINE: The patient is type I diabetic. She is on insulin and seems to be doing quite well with the medication. INTEGUMENT: No rash and no pleuritis. No does have an elbow laceration on the posterior elbow right. The patient is unable to assist in her transfer needed to two people to get her up. HEMATOLOGIC: No history of prolonged bleeding. PSYCHIATRIC: Affect is down. The patient is depressed on the account that she is blind. PHYSICAL EXAMINATION: GENERAL: The patient is an 86 year old white female who is alert but very weak and responses to some verbal commands. She had been found in the floor several times by her . The Hqukunhzdzsfl-[id number]-bkm mentions that she is getting more forgetful. HEAD: Unremarkable FACE: Symmetrical and equal with no facial weakness and no significant weakness in the frontal maxillary sinus areas to palpation under pressure. EYES: Pupils equal/reactive to light. Conjunctivae not pale. Sclerae not icteric. MOUTH: Unremarkable THROAT: No inflammation, tumors or exudate. NECK: No masses. No bruit. No tenderness. No rigidity. CHEST: Symmetrical and equal with good expansion and no remarkable tenderness. Ribs are prominent LUNGS: Breaths sounds are heard in both sides no rales or wheezing. Somewhat diminished. HEART: Audible and regular with good tones. No murmurs. The patient has a pacemaker in the left upper chest. ABDOMEN: Flat. Soft with no masses. No tenderness and no bruit. LOWER EXTREMITIES: Symmetrical and equal with some bilateral ankle and leg edema UPPER EXTREMITIES: Symmetrical and equal ASSESSMENT: 1. Recurrent falls with increasing weakness 2. Increasing Dementia 3. Type I Diabetes Mellitus 4. Total blindness 5. Hip left replacement, post fracture 6. History of left TKR MTDD
--- NOTE | 2017-04-05 15:11 | HP ---
REASON: Generalized weakness with frequent falls, improved. Confusion, urinary tract infection and staph infection right elbow. HISTORY OF PRESENT ILLNESS: The patient was seen 02/25/2017 at the office initially and the patient was confused and the claimed that she never had been like that and was markedly weak needing two people to get her up from the table. She still tries to answer questions. Because of her increasing weakness and more confusion, the patient was admitted to the hospital. In the process, the patient also was found to have a urinary tract infection, e.coli and staph infection of the right elbow from abrasion. This patient was then placed on Rocephin and Clindamycin. The patient was discharged from acute care and admitted to [facility] for continued antibiotic administration, as well as physical rehabilitation and occupational therapy. PAST PERSONAL HISTORY: The same as of the acute admission 02/25/2017. FAMILY HISTORY: The same as admission on 02/25/2017. SOCIAL HISTORY: Same. MEDICATIONS: The patient is continued on her medications from home of Simvastatin, Amlodipine, Insulin, Glargine/Lantus and Humalog. The patient is now on Clindamycin 300 mg IV every 6 hours and Rocephin 1 gram every 24 hours. The patient also was on Lovenox 30 mg subq. PHYSICAL EXAMINATION: GENERAL: We have an 86 year old female admitted to [facility] for continued antibiotic administration, as well as physical rehabilitation and occupational. The patient is markedly weak and she still needed two individuals to help her get unto the chair. VITAL SIGNS: At 5:55 p.m., temperature 97.4, pulse 74, blood pressure 156/72, respiratory rate 18, oxygen saturation 97. HEAD: Unremarkable. FACE: Symmetrical and equal with no facial weakness and no significant tenderness to palpation under pressure in the frontal or maxillary sinus areas. EYES: Pupils equal/reactive to light. Conjunctivae not pale. Sclerae not icteric. MOUTH: Unremarkable. THROAT: No inflammation, tumors or exudate. NECK: No masses. No bruit. No tenderness. No rigidity. CHEST: Essentially symmetrical and equal with the ribs quite prominent. LUNGS: Breath sounds are heard in both sides. No rales or wheezing and diminished. HEART: Audible and regular most of the time, probably secondary to the pacemaker. The patient had a pacemaker in the left upper anterior chest. The patient had sick sinus syndrome. ABDOMEN: Flat, soft with no remarkable tenderness. No masses and no bruit. EXTERNAL GENITALIA: Not done. PELVIC AND RECTAL: Not done. LOWER EXTREMITIES: Symmetrical and equal with some ankle edema. Pedal pulses present. UPPER EXTREMITIES: Symmetrical and equal. ASSESSMENT: 1. CONFUSION SOMEWHAT IMPROVED. 2. SENILE DEMENTIA 3. URINARY TRACT INFECTION, E.COLI. SENSITIVE TO ROCEPHIN 4. STAPH AUREUS INFECTION RIGHT ELBOW, MSSA 5. TYPE I DIABETES MELLITUS ON INSULIN 6. TOTAL BLINDNESS, BILATERAL 7. DECREASED HEARING 8. HISTORY OF LEFT HIP REPLACEMENT, POST FRACTURE 9. HISTORY OF LEFT TKR 10. GENERALIZED WEAKNESS, SLIGHTLY IMPROVED MTDD
--- NOTE | 2017-04-08 14:30 | DS ---
PATIENT IDENTIFICATION: This is an 86 year old female who was initially admitted to acute care on 02/25/2017 until 03/01/2017. The patient was markedly weak and confused more than what she wants. The patient during the course of the acute admission was found to have urinary tract infection, e.coli, sensitive to Rocephin. Right elbow avulsion laceration culture showed staph aureus, Methicillin sensitive. The patient had improved, but still markedly weak that she was unable to stand from a sitting position without any help. She was then discharged from acute care to [facility] on 03/01/2017. HOSPITAL COURSE: She was given Physical Therapy and the patient had gradually improved and her appetite also had improved. The patient's appetite varied from day to day. At times she would consume most of the food and other times she refuses to eat. She was continued on IV fluids with a multivitamin. Physical Therapy and Occupational Therapy has been continued and the patient is getting stronger. She is now able to walk in the hallway with some assistance. She had a CBC on 03/02 and 03/08 which showed essentially the same findings. Normal hemoglobin and hematocrit, normal WBC. Chemistries on those days also showed normal electrolytes. BUN is slightly elevated with normal serum creatinine and E GFR of 76. Her sugar had been spiking fasting. She continued on Lantus, as well as Humalog at the same dose. A repeat urinalysis done on 08/2017 showed 3+ protein, trace intact blood, leukocyte esterase 1+, nitrite negative, WBC 10-20, RBC 2-5, bacteria trace. Culture of the urine on 03/08/17 no ID or DENNYS indicated. It had a light growth of yeast. The patient throughout her hospital stay showed more stable vital signs and remained afebrile. She was discharged on 03/12/2017 with the following vital signs at 12 o'clock; pulse 96, blood pressure 140/54, respiratory rate 18. Previous to that at 5 a.m. the temperature was 97.9, oxygen saturation 97. At the time of discharge the patient was able to transfer from bed to wheelchair with minimal help. She is now able to walk with a walker with minimal help. The patient was instructed to take 5 mg of Norvasc from 2.5. Continue Hydrochlorothiazide at 12.5 mg, Losartan 50 mg twice a day, Lantus 10 units in the evening and Humalog regular 10 units subcutaneously with meals. This patient, however, as well as the was advised to do a sliding scale if possible. The granddaughter in law is a nurse who would be able to guide them. Continue Simvastatin 10 mg at bedtime. The patient at discharge was alert, oriented, cheerful with normal affect. Her sensorium had improved remarkably. She is also much stronger now and is able to transfer from bed to wheelchair. She also walks with less assistance. FINAL DIAGNOSES: 1. GENERALIZED WEAKNESS, IMPROVED, PROBABLY SECONDARY TO INFECTION 2. LETHARGY AND CONFUSION, RESOLVED. PROBABLY TRIGGERED OR AGGRAVATED BY THE URINARY TRACT INFECTION 3. URINARY TRACT INFECTION, E.COLI, SENSITIVE TO ROCEPHIN 4. INFECTED ABRASION RIGHT ELBOW, STAPH AUREUS, METHICILLIN SENSITIVE 5. DIABETES MELLITUS TYPE I 6. HYPERTENSION, CONTROLLED 7. TOTAL BLINDNESS 8. LEFT BREAST TUMOR, CONTINUOUS REGULATION 9. DEPRESSION, SECONDARY TO THE BLINDNESS This patient was advised to see me 03/19/2017 at 12:30 p.m. at the clinic and before if there is any questions. BETTY
== END 2017-03-12 15:05 | disposition home or self-care (01) | DRG 948 ==
LOC: MEDSURG B 13:37
PROVIDERS: ADMIT General Practice; ATTEND General Practice
DX: R53.1 Weakness (principal); N39.0 Urinary tract infection, site not specified; B96.20 Unspecified Escherichia coli [E. coli] as the cause of diseases classified elsewhere; R53.83 Other fatigue; R41.0 Disorientation, unspecified; S51.011A Laceration without foreign body of right elbow, initial encounter; B95.61 Methicillin susceptible Staphylococcus aureus infection as the cause of diseases classified elsewhere; H54.0 Blindness, both eyes; R29.6 Repeated falls; E10.9 Type 1 diabetes mellitus without complications; I10 Essential (primary) hypertension; I73.9 Peripheral vascular disease, unspecified; D49.3 Neoplasm of unspecified behavior of breast; Z16.11 Resistance to penicillins; Z16.39 Resistance to other specified antimicrobial drug; Z79.4 Long term (current) use of insulin; Z79.899 Other long term (current) drug therapy
CPT/HCPCS: 36415; 80053; 81001; 82962; 85025; 87086; 97802

== ENCOUNTER 2017-05-20 12:34 | Outpatient (CLI) ==
[2017-05-20 12:44] LABS: BASOPHILS % (AUTO) 0.5 % (0.0-3.0); EOSINOPHILS # (AUTO) 0.2 K/ul (0.0-0.7); HEMATOCRIT 40.7 % (37.0-47.0); HEMOGLOBIN 14.3 g/dl (12.0-16.0); IMMATURE GRANULOCYTE % (AUTO) 0.3 % (0.0-5.0); LYMPHOCYTES # (AUTO) 1.5 K/uL (0.60-3.4); MEAN CORPUSCULAR HEMOGLOBIN 29.5 pg (27.0-31.0); MEAN CORPUSCULAR HGB CONC 35.1 (31.8-35.4); MEAN CORPUSCULAR VOLUME 84.1 fl (81.0-99.0); MONOCYTES # (AUTO) 0.6 K/uL (0.4-2.0); MONOCYTES % (AUTO) 7.3 (0-10); NEUTROPHILS # (AUTO) 5.6 K/ul (2.0-6.9); NEUTROPHILS % (AUTO) 70.9; PLATELET COUNT 155 10^3/uL (140-440); RED BLOOD COUNT 4.84 10^6/ul (4.20-5.40); WHITE BLOOD COUNT 7.93 K/ul (4.6-10.2)
[2017-05-20 12:49] LABS: ADD URINE MICROSCOPIC YES; BILIRUBIN,URINE Negative (NEGATIVE); KETONES,URINE Negative (NEGATIVE); LEUKOCYTE ESTERASE ,URINE 3+ (NEGATIVE); NITRITE,URINE Negative (NEGATIVE); PROTEIN,URINE 3+ (NEGATIVE); URINE, BLOOD 1+ (NEGATIVE)
[2017-05-20 12:56] LABS: ALBUMIN 3.9 g/dL (3.4-5.0); ALBUMIN/GLOBULIN RATIO 1.08; ANION GAP 15.2; BILIRUBIN,TOTAL 1.06 mg/dL (0.00-1.20); BUN/CREATININE RATIO 40.38; CALCIUM 10.7 mg/dL (8.2-10.2); CHOL/HDL RATIO 3.2 (4.5-5.5); CREATININE 1.04 mg/dL (0.60-1.30); POTASSIUM 4.2 mmol/L (3.5-5.10); TOTAL PROTEIN 7.5 g/dL (5.8-8.1)
== END 2017-05-20 12:35 | disposition home or self-care (01) ==
LOC: LAB 12:34
PROVIDERS: ATTEND General Practice
DX: E11.8 Type 2 diabetes mellitus with unspecified complications (principal); E78.5 Hyperlipidemia, unspecified; I10 Essential (primary) hypertension; Z79.899 Other long term (current) drug therapy
CPT/HCPCS: 36415; 80053; 80061; 81001; 83036; 85025; 87086

== ENCOUNTER 2017-10-12 16:11 | Emergency (ER) ==
[2017-10-12 16:19] VITALS: BP 147/66; TEMP 97.6; BMI 23.2
--- NOTE | 2017-10-12 17:11 | CT ---
EXAM: CT chest without contrast HISTORY: Cough COMPARISON: 12/11/2013 TECHNIQUE: CT chest performed without intravenous contrast. Coronal and sagittal reformatted images obtained FINDINGS: Thyroid is enlarged. Heart normal in size. Coronary calcifications and/or stent. Left-s ided cardiac pacer. Aorta normal in caliber. Moderate atherosclerosis. Esophagus unremarkable. Ev aluation for lymphadenopathy limited without contrast. No lymphadenopathy identified. Granulomatous calcification in the spleen. Spleen top normal in size. No acute abnormalities of the and bones. Degenerative change in the spine. Central airway patent. No airspace consolidation. No pleural eff usion. Scattered subsegmental atelectasis and/or scarring. Granulomatous calcification. IMPRESSION: 1. Scattered subsegmental atelectasis and/or scarring. No airspace consolidation. 2. Atherosclerosis. Coronary calcifications and/or stent. Cardiac pacer. 3. Enlarged thyroid.
--- NOTE | 2017-10-12 17:37 | CT ---
EXAM: CT lumbar spine without contrast HISTORY: Pain/fall. TECHNIQUE: Multi-slice transaxial helical with coronal and sagittal reformatted views. COMPARISON: None FINDINGS: A comminuted burst fracture of L3 is present. There is extension of fracture lines into the posterio r vertebral body. There is minimal retropulsion of fracture fragment into the central canal. Otherwi se the visualized vertebral body heights appear preserved. Mild multilevel lumbar disc space narrowi ng is seen. No evidence of listhesis is seen. Mild bilateral facet osteoarthritis is present. The bones are osteopenic. Mild bilateral sacroiliac joint osteoarthritis is present. Calcified plaqu es are present within the abdominal aorta and its major branch vessels. Nonobstructing right renal c alculi are seen. Renal vascular calcifications are also seen. Gas is seen within the urinary bladde r. Segmental analysis: T12-L1: No significant central canal or neural foraminal stenosis. L1-L2: No significant central canal or neural foraminal stenosis. L2-L3: There is moderate narrowing of the central canal secondary to retropulsion of fracture fragmen t. The AP diameter the central canal measures approximately 7 mm. Minimal bilateral neural foramina l narrowing is seen. L3-L4: There is mild narrowing of the central canal secondary to circumferential disc bulge as well a s prominent epidural fat. Mild bilateral neural foraminal narrowing is seen. L4-L5: There is moderate narrowing of central canal secondary to posterior disc osteophyte complex an d bilateral facet osteoarthritis. Mild bilateral neural foraminal narrowing is seen. L5-S1: There is mild narrowing of the central canal secondary to posterior disc osteophyte complex. Mild bilateral neural foraminal narrowing is seen. IMPRESSION: 1. Burst fracture of L3 with retropulsion of fracture fragment. Retropulsed fragment moderately haleigh rows the central canal. 2. No evidence of listhesis. 3. 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 4. Other incidental findings as above.
--- NOTE | 2017-10-12 17:40 | ED.PDOC ---
General ED Provider: Dr. SAKSHI MARTIN Chief Complaint: Weakness Stated Complaint: weakness Time Seen by Physician: 16:12 (wednesday c/o low back pain no neck pain ) Mode of Arrival: Stretcher Information Source: Patient Exam Limitations: No limitations [facility] and Triage Documentation Reviewed and Agree: Yes Reviewed sepsis parameters & appropriate labs ordered?: Yes System Inflammatory Response Syndrome: Not Applicable Sepsis Protocol: For patient's 13 years and over: Temp is 96.8 and below OR 101 and greater Pulse >90 BPM Resp >20/minute Acutely Altered Mental Status Are patient's symptoms suggestive of a new infection, such as: -Pneumonia -Skin, Soft Tissue -Endocarditis -UTI -Bone, Joint Infection -Implantable Device -Acute Abdominal Infection -Wound Infection -Meningitis -Blood Stream Catheter Infection -Unknown System Inflammatory Response Syndrome: Not Applicable Review of Systems - Review Of Systems Constitutional: Reports: No symptoms Eyes: Reports: No symptoms Ears, Nose, Mouth, Throat: Reports: No symptoms Respiratory: Reports: No symptoms Cardiac: Reports: No symptoms GI: Reports: No symptoms : Reports: No symptoms Musculoskeletal: Reports: Back pain Skin: Reports: No symptoms Neurological: Reports: No symptoms Endocrine: Reports: No symptoms Hematologic/Lymphatic: Reports: No symptoms All Other Systems: Reviewed and Negative Past Medical History - Past Medical History Previously Healthy: No Endocrine: Reports: DM 2, Dyslipidemia Cardiovascular: Reports: Hypertension Respiratory: Reports: None Hematological: Reports: None Gastrointestinal: Reports: None Genitourinary: Reports: None Neuro/Psych: Reports: None Musculoskeletal: Reports: None Cancer: Reports: None Last Menstrual Period: menopause - Surgical History General Surgical History: Reports: None - Family History Family History: Reports: None - Social History Smoking Status: Never smoker Hx Substance Use: No Alcohol Screening: None Physical Exam - Physical Exam Appearance: Well-appearing, No pain distress, Well-nourished Eyes: ROSENDA, EOMI, Conjunctiva clear ENT: Dry mucosa Respiratory: Airway patent, Breath sounds clear, Breath sounds equal, Respirations nonlabored Cardiovascular: RRR, Pulses normal, No rub, No murmur GI/: Soft, Nontender, No masses, Bowel sounds normal, No Organomegaly Musculoskeletal: Limited ROM (due to back pain ) Skin: Warm, Dry, Normal color Neurological: Sensation intact, Motor intact, Reflexes intact, Cranial nerves intact, Alert, Oriented Psychiatric: Affect appropriate, Mood appropriate Interpretation - Radiology Interpretation Radiology Interpretation By: Radiologist Radiology Results: Positive (burst fx l3 with retro pulsion) Physician Notification - Case Discussed Physician Notified: CLAU GOMES ACCEPTING Time of Notification: 18:17 (TRANSFER ) Critical Care Note - Critical Care Note Total Time (mins): 0 Course - Course Hematology/Chemistry: 10/12/17 16:39 10/12/17 16:39 Orders, Labs, Meds: Lab Review 10/12/17 10/12/17 10/12/17 16:26 16:35 16:39 WBC 8.96 RBC 4.56 Hgb 13.7 Hct 38.9 MCV 85.3 MCH 30.0 MCHC 35.2 RDW Coeff of Momo 14.9 H Plt Count 174 Immature Gran % (Auto) 0.4 Neut % (Auto) 80.7 Lymph % (Auto) 10.7 Heard % (Auto) 6.7 Eos % (Auto) 1.1 Baso % (Auto) 0.4 Immature Gran # (Auto) 0.0 Neut # 7.2 H Lymph # 1.0 Heard # 0.6 Eos # 0.1 Baso # 0.0 Puncture Site R radial O2 Saturation 91.0 L ABG pH 7.370 ABG pCO2 42.0 ABG pO2 64.0 L ABG HCO3 24.3 ABG Total CO2 26 ABG Base Excess -1 Malik Test + FiO2 % 21.0 Sodium Potassium Chloride Carbon Dioxide Anion Gap BUN Creatinine Estimated GFR (MDRD) BUN/Creatinine Ratio Glucose Lactic Acid Calcium Total Bilirubin AST ALT Alkaline Phosphatase Total Creatine Kinase Troponin I B-Natriuretic Peptide Total Protein Albumin Globulin Albumin/Globulin Ratio Procalcitonin Influenza A (Rapid) Negative by naat Influenza B (Rapid) Negative by naat 10/12/17 10/12/17 10/12/17 16:39 16:39 16:39 WBC RBC Hgb Hct MCV MCH MCHC RDW Coeff of Momo Plt Count Immature Gran % (Auto) Neut % (Auto) Lymph % (Auto) Heard % (Auto) Eos % (Auto) Baso % (Auto) Immature Gran # (Auto) Neut # Lymph # Heard # Eos # Baso # Puncture Site O2 Saturation ABG pH ABG pCO2 ABG pO2 ABG HCO3 ABG Total CO2 ABG Base Excess Malik Test FiO2 % Sodium 136 Potassium 4.1 Chloride 101 Carbon Dioxide 26 Anion Gap 13.1 BUN 53 H Creatinine 1.45 H Estimated GFR (MDRD) 34.00 BUN/Creatinine Ratio 36.55 Glucose 314 H Lactic Acid 12.6 Calcium 10.2 Total Bilirubin 0.6 AST 16 ALT 18 Alkaline Phosphatase 93 Total Creatine Kinase 65 Troponin I 0.0200 B-Natriuretic Peptide Total Protein 8.0 Albumin 3.6 Globulin 4.4 Albumin/Globulin Ratio 0.82 Procalcitonin 0.14 Influenza A (Rapid) Influenza B (Rapid) 10/12/17 16:39 WBC RBC Hgb Hct MCV MCH MCHC RDW Coeff of Momo Plt Count Immature Gran % (Auto) Neut % (Auto) Lymph % (Auto) Heard % (Auto) Eos % (Auto) Baso % (Auto) Immature Gran # (Auto) Neut # Lymph # Heard # Eos # Baso # Puncture Site O2 Saturation ABG pH ABG pCO2 ABG pO2 ABG HCO3 ABG Total CO2 ABG Base Excess Malik Test FiO2 % Sodium Potassium Chloride Carbon Dioxide Anion Gap BUN Creatinine Estimated GFR (MDRD) BUN/Creatinine Ratio Glucose Lactic Acid Calcium Total Bilirubin AST ALT Alkaline Phosphatase Total Creatine Kinase Troponin I B-Natriuretic Peptide 33 Total Protein Albumin Globulin Albumin/Globulin Ratio Procalcitonin Influenza A (Rapid) Influenza B (Rapid) Orders Category Date Time Status ABG DRAW REQUEST Stat CARDIO 10/12/17 16:26 Completed EKG-(ED ONLY) Stat CARDIO 10/12/17 16:17 Ordered ABG Stat LAB 10/12/17 16:26 Completed B-TYPE NATRIURETIC PEPTIDE Stat LAB 10/12/17 16:18 Ordered BLOOD CULTURE Stat LAB 10/12/17 16:17 Ordered CBC W/ AUTO DIFF Stat LAB 10/12/17 16:16 Ordered COMPREHENSIVE METABOLIC PANEL Stat LAB 10/12/17 16:16 Ordered CREATINE KINASE Stat LAB 10/12/17 16:16 Ordered FLU A/B MOLECULAR Stat LAB 10/12/17 16:18 Uncollected LACTIC ACID Stat LAB 10/12/17 16:17 Ordered MOLECULAR GROUP A STREP Stat LAB 10/12/17 16:18 Uncollected PROCALCITONIN Stat LAB 10/12/17 Ordered TROPONIN I Stat LAB 10/12/17 16:16 Ordered URINALYSIS C & S IF INDICATED Stat LAB 10/12/17 16:[address] CHEST W/O CONTRAST Stat RADS 10/12/17 16:[address] LUMBAR SPINE W/O CONTRAST Stat RADS 10/12/17 16:17 Ordered Vital Signs: Temp Pulse Resp BP Pulse Ox 10/12/17 16:12 97.6 F 87 20 147/66 H 95 Departure - Departure Time of Disposition: 19:00 Disposition: TSF SHORT-TRM HOSP Discharge Problem: Closed L3 vertebral fracture Qualifiers: Encounter type: initial encounter Fracture morphology: burst- stable Qualified Code(s): S32.031A - Stable burst fracture of third lumbar vertebra, initial encounter for closed fracture Instructions: Back Pain (ED) Condition: Good Pt referred to PMD for follow-up: Yes IPMP verified?: Yes Additional Instructions: Please call your Family Physician as soon as possible to schedule a follow-up appointment. Allergies/Adverse Reactions: Allergies Faizan Intolerance Adverse Reaction (Uncoded 06/13/15 10:49) Cough Statin Intolerance Adverse Reaction (Uncoded 06/13/15 10:49) Crestor- arm pain Home Medications: Ambulatory Orders Insulin Glargine,Hum.rec.anlog [Lantus] 10 unit SUBCUT BEDTIME 02/25/17 Insulin Lispro [Humalog] 10 unit SUBCUT DAILYWM 02/25/17 Docusate Sodium [Colace] 100 mg PO DAILY PRN 10/12/17 Disposition Discussed With: Patient, Family
== END 2017-10-12 18:46 | disposition short-term general hospital (02) ==
LOC: ED 16:11
DX: S32.031A Stable burst fracture of third lumbar vertebra, initial encounter for closed fracture (principal); R53.1 Weakness; W19.XXXA Unspecified fall, initial encounter; E11.9 Type 2 diabetes mellitus without complications; E78.5 Hyperlipidemia, unspecified; I10 Essential (primary) hypertension; Z79.899 Other long term (current) drug therapy
CPT/HCPCS: 36415; 80053; 82550; 82803; 83605; 83880; 84145; 84484; 85025; 87040; 87502; 87651; 93005; 93010; 99285

== ENCOUNTER 2017-10-18 18:38 | Inpatient (IN) ==
--- NOTE | 2017-10-18 21:58 | DI ---
EXAM: Single view chest COMPARISON: Chest Xray from 02/25/2017 HISTORY: Cough FINDINGS: There is no lobar infiltrate or failure or large effusion. There is some linear atelectas is in the left mid lung. Cardiac and mediastinal silhouettes show no acute abnormality. There is maikel cific atherosclerosis. Pacemaker is unchanged. No acute soft tissue or osseous abnormalities. IMPRESSION: 1. Minimal left mid lung atelectasis otherwise negative.
[2017-10-18] MEDS ORDERED: TYLENOL PO PRN (22:43)
[2017-10-18] MEDS ORDERED: COLACE PO PRN (22:43)
[2017-10-18] MEDS ORDERED: DULCOLAX RC PRN (22:43)
[2017-10-18] MEDS ORDERED: HEPARIN 5000 UNIT/0.5 ML ONE (23:03)
[2017-10-18] MEDS: HEPARIN SODIUM PORCINE 5000 UNIT SUBCUT SCH (23:06)
[2017-10-18 23:07] VITALS: BMI 23.1
[2017-10-19] MEDS ORDERED: HEPARIN 5000 UNIT/0.5 ML ONE (03:56)
[2017-10-19] MEDS: HEPARIN SODIUM PORCINE 5000 UNIT SUBCUT SCH (05:50)
[2017-10-19] MEDS: PERCOCET 5-325 PO PRN ×2 (06:17→23:25)
[2017-10-19] MEDS: OMNICEF PO SCH ×2 (08:21→21:00)
[2017-10-19] MEDS: NORVASC PO SCH (08:21)
--- NOTE | 2017-10-19 10:54 | RS.PTINEVL ---
Subjective - Patient information Date of Evaluation: 10/18/17 Date of Arrival on Unit: 10/18/17 Admitted From:: Facility Transfer Diagnosis: open wedge compression fx L3 s/p Kyphoplasty Usual Living Arrangement: With Spouse Living Arrangement Comments: has a ramp, uses a rolling walker, has as a caregiver Home Environment: House, Ramp Medical History: Hypertension, Diabetes Medical History Comments:: encephalopathy, pacemaker, LATEX ALLERGY?: No Surgical History: Lumbar Spine Surgical History Comments:: L3 kyphoplasty 10/12/17 Medications: see chart Subjective Information/ Patient Comments:: pt states she is tired and wants to wait, encouraged pt to participate in PT and she did agree. - Level of function Prior to this admission, the patient could do the following:: Partially Dependent Ambulation Abilities prior to this admission: pt poor historian and not present this am Current Level of Function: Partially Dependent Current Equipment Used at Home: Walker, BSC, elevated commode seat, Glucometer, Pain Assessement - Location lumbar spine Description: Aching Pain Behavior: Facial Grimacing Pain Alleviating Factors: Position Change Effects of Pain: pt unable to rate pain at this time. Interventions - Objective Patient Orientation: Person, Place Range of Motion - ROM Right Upper Extremity AROM: Slight limitation (shld flex limited approx 110 AAROM) Left Upper Extremity AROM: Slight limitation (shld flex limited approx 100 AAROM elbow ext slightly limited) Right Lower Extremity AROM: Moderate limitation (knee flex limited approx 90 AAROM) Left Lower Extremity AROM: Moderate limitation (knee flex limited approx 80 AAROM) Muscle Strength - Muscle Strength Right Upper Extremity Strength: Mild Weakness (shld flex 3-/5, elbow flex/ext 4- /5,) Left Upper Extremity Strength: Mild Weakness (shld flex 3-/5, elbow flex 3+/5, ext 3-/5) Right Lower Extremity Strength: Mild Weakness (hip flex 3+/5, knee flex/ 3-/5, ext 3+5, ankle DF/PF 4-/5) Left Lower Extremity Strength: Mild Weakness (hip flex 3/5, knee flex 3-/5, ext 3+/5, ankle Df/PF 4-/5) Sensation - Sensation Right Upper Extremity Sensation: Intact/Normal Left Upper Extremity Sensation: Intact/Normal Right Lower Extremity Sensation: Intact/Normal Left Lower Extremity Sensation: Intact/Normal Palpation Palpation Findings: Muscle Guarding (lumbar paraspinals, as well as tightness B hamstrings and heel cords) Balance - Sitting Balance and Reactions Static Sitting Balance: Poor Dynamic Sitting Balance: Poor Sitting Equilibrium Reactions: Absent Left, Absent Right Sitting Protective Reactions: Absent Left, Absent Right - Standing Balance and Reactions Static Standing Balance: Poor Dynamic Standing Balance: Zero Standing Equilibrium Reactions: Absent Left, Absent Right Standing Protective Reactions: Absent Left, Absent Right - Comments Balance Assessment Comments: pt pushes backward when standing, pt unable to stand without min to mod assist to remain standing. Functional Mobility - Bed Mobility Rolling R/L: Max Assist, 2 person assist Scooting: Max Assist, 2 person assist Supine to Sit: Max Assist, 2 person assist - Transfers Sit to Stand: Max Assist, 2 person assist Stand to Sit: Max Assist, 2 person assist - Safety Awareness Safety Awareness: Poor Ambulation - Ambulation Assistive Device Used: Rolling Walker Orthotic/Prosthetic Device: No Distance: 5-8ft Assistance needed with Ambulation: Mod Assist, Max Assist, 2 person assist Gait Deviations: Short stride, Deviates from path Ambulation Comments: pt amb with LLE externally rotated, flexed posture, decreased step length. pt requires constant verbal and tactile cues for posture as well as sequencing with rwx. pt pushes backward with standing. pt does not follow commands well. Factors Affecting Ambulation: Decreased Balance, Pain, Weakness, Cognitive Status, Limited Endurance Treatment time - Time with patient Total treatment time: 32 Patient Education - Education Patient Education: Education of Plan of Care Teaching Recipient: Patient Teaching Methods: Discussion Comments: Discussion with patient regarding POC as well as importance of participating in PT. Assessment - Assessment Problem List:: Decreased level of function, Requires training/education, Decreased safety/Risk of falls, Weakness, Pain limits previous level of function , Cognitive status limits abilities Rehab Potential: Good Further Therapy Indicated?: Yes Short Term Goals GOAL #1: pt perform rolling and bridging in bed with mod x 1 Goal to be met by: 10/26/17 GOAL #2: pt transfer sup to/from sidelying to/from sit to/from stand mod x 1 Goal to be met by: 10/26/17 GOAL #3: pt amb with rwx 50ft with min x 1-2 with improved posture, no LOB Goal to be met by: 10/26/17 Sales Mgr Goals GOAL #1: pt demonstrate rolling and bridging independently Goal to be met by: 11/02/17 GOAL #2: pt transfer sup to/from sidelying to/from sit to/from stand CGA Goal to be met by: 11/02/17 GOAL #3: pt amb with rwx 100ft with CGA to min x 1 with no LOB Goal to be met by: 11/02/17 Plan Plan of Care: Therapeutic EX, Therapeutic Activity Other:: gait training Frequency of Treatment: 1-2 X day, as tolerated Duration of Treatment: 2 Weeks Anticipated Discharge Destination: Home Has the Physician been added for Co-signature?: Yes
[2017-10-19] MEDS: HEPARIN SUBCUT SCH ×2 (13:48→20:58)
--- NOTE | 2017-10-19 15:38 | RS.OTINEVL ---
Subjective - Patient information Date of Evaluation: 10/19/17 Date of Arrival on Unit: 10/18/17 Admitted From:: Facility Transfer Usual Living Arrangement: With Spouse Living Arrangement Comments: has a ramp, uses a rolling walker, has as a caregiver Home Environment: House, Ramp Medical History: Hypertension, Diabetes Medical History Comments:: encephalopathy, pacemaker, LATEX ALLERGY?: No Surgical History: Lumbar Spine Surgical History Comments:: L3 kyphoplasty 10/12/17 Medications: see chart Subjective Information/ Patient Comments:: "I am tired." "You have to sit me up or do something... my back." - Level of function Prior to this admission, the patient could do the following:: Partially Dependent Ambulation Abilities prior to this admission: Pt would stand with her and use the rolling walker to walk some. Pt not able today. Her fixes her medicine for her and cooks, and cleans, her. Current Equipment Used at Home: Walker, BSC, elevated commode seat, Glucometer, Pain Assessment - Pain Pain Score: 0 Pain Aggravating Factors: Changing Position Pain Alleviating Factors: Position Change, Sitting Interventions - Objective Patient Orientation: Person, Situation Current Interventions: IV's, Oxygen Observation: Pt stiffens up when asked to move. Pt is fearful. Interventions - ROM Right Upper Extremity AROM: WFL's Left Upper Extremity AROM: WFL's - Strength Right Upper Extremity Strength: Mild Weakness Left Upper Extremity Strength: Mild Weakness - Sensation Right Upper Extremity Sensation: Intact/Normal Left Upper Extremity Sensation: Intact/Normal Balance - Sitting Balance Static Sitting Balance: Poor Dynamic Sitting Balance: Poor - Standing Balance Static Standing Balance: Poor Dynamic Standing Balance: Poor - Comments Balance Assessment Comments: Poor ADL Skills - Self Feeding Self Feeding: CGA - Grooming Grooming: Max Assist - Bathing Bathing UE: Min Assist Bathing LE: Mod Assist - Dressing Dressing UE: Min Assist Dressing LE: Max Assist - Toilet Management Toileting Management: Max Assist Functional Mobility - Bed Mobility Rolling R/L: Mod Assist Scooting: Mod Assist, Max Assist Supine to Sit: Max Assist Sit to Supine: Max Assist - Transfers Sit to Stand: Max Assist, 2 person assist Stand to Sit: Mod Assist Stand Pivot Transfers: Max Assist, 2 person assist - Ambulation Weight Bearing Status: FWB Assistive Device Used: Rolling Walker Assistance needed with Ambulation: Max Assist, 2 person assist - Safety Awareness Safety Awareness: Good Additional Treatment Performed - Time with patient Total treatment time: 31 Activities Patient Interests:: Visiting/Socializing Patient Education Patient Education: Home Safety, Education of Plan of Care Teaching Recipient: Patient, Significant Other Teaching Methods: Discussion Assessment Problem List:: Decreased level of function, Requires training/education, Decreased safety/Risk of falls, Weakness, Pain limits previous level of function Rehab Potential: Good Further Therapy Indicated?: Yes Short Term Goals - Goals GOAL 1: Moderate (A) with functional mobility and RW Goal to be met by: 11/02/17 GOAL 2: F ADL balance Goal to be met by: 11/02/17 GOAL 3: Mod (A) with self care Goal to be met by: 11/02/17 Usp Goals GOAL 1: Minimal (A) with functional mobility and RW Goal to be met by: 11/16/17 Progress towards goal: Met GOAL 2: Good ADL balance Goal to be met by: 11/16/17 GOAL 3: Min (A) with self care Goal to be met by: 11/16/17 Plan Plan of Care: Therapeutic EX, Neuromuscular Re-Educ, Therapeutic Activity, Self- Care/Home Management Frequency of Treatment: 1-2 X day, as tolerated Duration of Treatment: 2 Weeks Anticipated Discharge Destination: Home Has the Physician been added for Co-signature?: Yes
[2017-10-19] MEDS: LEVEMIR SUBCUT SCH (20:59)
[2017-10-19] MEDS: ZOCOR PO SCH (21:00)
[2017-10-20] MEDS: HEPARIN SUBCUT SCH ×2 (06:14→12:51)
[2017-10-20] MEDS: OMNICEF PO SCH ×2 (08:03→21:07)
[2017-10-20] MEDS: NORVASC PO SCH (08:03)
[2017-10-20] MEDS: LEVEMIR SUBCUT SCH (21:06)
[2017-10-20] MEDS: ZOCOR PO SCH (21:07)
[2017-10-20] MEDS: PERCOCET 5-325 PO PRN (21:23)
[2017-10-21] MEDS: NORVASC PO SCH (08:07)
[2017-10-21] MEDS: OMNICEF PO SCH (08:07)
[2017-10-21] MEDS: LOVENOX SUBCUT SCH (08:08)
[2017-10-21] MEDS: LEVEMIR SUBCUT SCH (20:48)
[2017-10-21] MEDS: PERCOCET 5-325 PO PRN (20:49)
[2017-10-21] MEDS: ZOCOR PO SCH (20:49)
[2017-10-22] MEDS: LOVENOX SUBCUT SCH (09:02)
[2017-10-22] MEDS: NORVASC PO SCH (09:02)
[2017-10-22] MEDS: LEVEMIR SUBCUT SCH (21:15)
[2017-10-22] MEDS: ZOCOR PO SCH (21:15)
[2017-10-22] MEDS: PERCOCET 5-325 PO PRN (21:16)
[2017-10-23] MEDS: NORVASC PO SCH (09:03)
[2017-10-23] MEDS: LOVENOX SUBCUT SCH (09:03)
[2017-10-23] MEDS: LEVEMIR SUBCUT SCH (20:41)
[2017-10-23] MEDS: ZOCOR PO SCH (20:56)
[2017-10-23] MEDS: PERCOCET 5-325 PO PRN (22:48)
[2017-10-24] MEDS: NORVASC PO SCH (09:04)
[2017-10-24] MEDS: LOVENOX SUBCUT SCH (09:04)
--- NOTE | 2017-10-24 19:27 | CT ---
Exam: CT of the abdomen and pelvis without contrast History: Abdominal pain Technique: [address] of the abdomen and pelvis without intravascular contrast FINDINGS: The lung bases are clear. No significant liver abnormality. The adrenals, pancreas and spl een are unremarkable. The stomach and hiatus are unremarkable.Duodenal diverticula noted measuring up to 3.5 cm without complicating features. Heavy atherosclerotic calcification of the aorta and visce ral arteries. Moderate right colonic stool retention. The appendix is not seen. Bowel loops demonst rate normal caliber. No inflamatory change seen in the mesentery or retroperitoneum. Prior cholecyste ctomy. Low density portacaval lymph node measuring 1 cm short axis stable dated back to 12/11/2013.. Prior hysterectomy. Normal urinary bladder. A few sigmoid colonic diverticula. No pelvic fat infla mmation. No acute findings of the skeleton. Prior L3 cement fixation. Prior left hip transfemoral na il. Impression: 1. No inflammatory process, bowel or urinary obstruction is seen. 2. 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 3. Moderate right colonic stool retention. Correlate for symptoms.
[2017-10-24] MEDS: HUMALOG SUBCUT PRN (19:29)
[2017-10-24] MEDS: LEVEMIR SUBCUT SCH (20:40)
[2017-10-24] MEDS: ZOCOR PO SCH (20:40)
[2017-10-24] MEDS ORDERED: LEVEMIR SUBCUT SCH (21:00)
[2017-10-25] MEDS: LOVENOX SUBCUT SCH (09:02)
[2017-10-25] MEDS: NORVASC PO SCH (09:02)
[2017-10-25] MEDS: HUMALOG SUBCUT PRN ×3 (11:29→21:01)
[2017-10-25] MEDS: PERCOCET 5-325 PO PRN (20:59)
[2017-10-25] MEDS: ZOCOR PO SCH (21:00)
[2017-10-25] MEDS: LEVEMIR SUBCUT SCH (21:00)
[2017-10-26] MEDS: HUMALOG SUBCUT PRN ×4 (06:19→21:02)
--- NOTE | 2017-10-26 09:37 | PN ---
DATE OF VISIT: 10/25/17 SUBJECTIVE: The patient is alert. She is responsive and follows verbal commands. VITAL SIGNS: Temperature 98.1, pulse 83, blood pressure 146/65, respiratory rate 18, oxygen saturation 98% on room air. This patient is undergoing physical rehabilitation. I need to talk to the grandson and [id number] as to what they will do for them. He would need to have help at home. Mrs. Diaz is getting older. GIOVANNID
[2017-10-26] MEDS: LOVENOX SUBCUT SCH (09:52)
[2017-10-26] MEDS: NORVASC PO SCH (09:52)
--- NOTE | 2017-10-26 11:37 | PN ---
DATE OF VISIT: 10/24/17 SUBJECTIVE: The patient had been complaining of some generalized abdominal pain. She describes it as "a hurt". The patient has some tenderness, a little bit more in the left lower quadrant without any significant muscular guarding. The bowel sounds were present. This patient had a burst fracture of L3 and was treated with kyphoplasty of L2 by Dr. Mares. Because of the pain and tenderness, CT scan of the abdomen and pelvis is ordered for tonight. CT scan of the abdomen and pelvis was unremarkable except for a moderate amount of stool in the right colon. The sugar was uncontrolled and so the patient is placed on sliding scale now. She had been on Levemir 20 units subcutaneously every evening. Sugar was escalating toward 400 in the evening after meals. This patient had been eating quite well with the feeding her. The heart is audible with good tones. MTDD
[2017-10-26] MEDS: LEVEMIR SUBCUT SCH (21:02)
[2017-10-26] MEDS: ZOCOR PO SCH (21:03)
[2017-10-27] MEDS: PERCOCET 5-325 PO PRN ×2 (02:04→20:56)
[2017-10-27] MEDS: LOVENOX SUBCUT SCH (09:23)
[2017-10-27] MEDS: NORVASC PO SCH (09:23)
--- NOTE | 2017-10-27 10:29 | HP ---
CHIEF COMPLAINT: Back pain after a fall, post surgery. HISTORY OF PRESENT ILLNESS: The patient was seen at the emergency room at [facility] on 10/12/2017. The patient fell at home about four days before that. The patient was experiencing increasing pain and weakness prompting the emergency room visit on 10/12/17. The patient in the course of the examination was found to have a burst fracture of L3. I was notified with the findings and I felt that the patient needs to be transferred because of the retropulsion. The patient was then transferred to [facility] and was seen by a neurosurgeon and did a kyphoplasty of L2 on 10/15/2017. This patient was then transferred to this facility for continued rehab under Transitional Care status. The patient, just before transfer, had been ambulating prior to discharge. 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 Mini CVA. Stress incontinence and urgency. Fracture of left hip 2011, operated. Previous C- section, Total knee replacement left side 2007.She also had bilateral cataract extractions. Pacemaker inserted August 05, 2015. Pervious admission because of increasing weakness and falls. The patient is also now getting forgetful. FAMILY HISTORY: Father seemingly of skin malignancy, probably melanoma. Mother of congestive heart failure. Brother had lung carcinoma and from it. Sister had breast carcinoma. There was diabetes in the family. SOCIAL HISTORY: The patient is and resides with her , who is her caregiver. She does not smoke any cigarettes or use any tobacco products. MEDICATIONS: Prior to this admission, which is not the medication prior to admission to [facility]. Simvastatin 10 mg daily Amlodipine 5 mg daily Colace 100 mg twice a day Tylenol 650 mg every 4 hours prn Oxycodone/APAP 5/325 mg one every 4 hours prn Heparin 5,000 IU subcutaneously every 8 hours Dulcolax 10 mg suppository prn Levemir 20 Units subcutaneously at bedtime Omnicef 300 mg capsule twice a day Hydrochlorothiazide 12.5 mg daily Losartan 50 mg twice a day ALLERGIES: The patient has allergy to Faizan and some statin intolerance, but the patient is on Zocor. The dose, however, is low. 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 No fever or chills, but has significant weakness. 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 She denies any headaches or any seizure disorders or syncopal episodes. VISUAL: The patient is near completely blind. AUDITORY: No tinnitus, no pain or drainage. Hearing is decreased. RESPIRATORY: The patient denies any shortness of breath and no significant cough. CARDIOVASCULAR: Denies any chest pain or chest tightness. GASTROINTESTINAL: The patient's appetite is variable. She does eat, however, when her feeds her. GENITOURINARY: The patient is incontinent of urine. MUSCULOSKELETAL: The patient has pain and has a recent fracture of the L3, burst fracture with retropulsion. She had a previous hip fracture also. ENDOCRINE: Negative, although this patient is diabetic and using Insulin. INTEGUMENT: No petechia and no rash. HEMATOLOGIC: No history of prolonged bleeding. PSYCHIATRIC: Affect is somewhat down because of the blindness that causes her depression. PHYSICAL EXAMINATION: GENERAL: We have an 86 year old female admitted to the hospital from [facility] for further rehabilitation. She had a fracture of L3 with retropulsion. She did undergo kyphoplasty of L2. The patient had been ambulated prior to discharge from [facility]. She is alert and follows verbal commands and has movement of all extremities. She is not dyspneic, nor tachypneic and not cyanotic. VITAL SIGNS: 10/18/17, temperature 98.3, pulse 80, blood pressure, left 142/60, right 151/65, respiratory rate 18, oxygen saturation 97 at room air. The patient is 5'2", 126 pounds, 5.19 ounces. HEAD: Unremarkable. Scalp with no active dermatitis. FACE: Symmetrical and equal with no facial weakness. No significant tenderness to palpation in the frontal or maxillary sinus areas. EYES: Pupils equal/reactive to light. Conjunctivae not pale. Sclerae not icteric. MOUTH: Unremarkable. THROAT: No inflammation, tumors or exudate. NECK: No masses. No bruit. No tenderness. No rigidity. CHEST: Essentially symmetrical and equal. BREASTS: Not examined, but the left breast is somewhat thicker than the right. This patient had a previous hard mass on the left breast, which has disappeared. LUNGS: Breath sounds are heard in both sides, diminished, but no rales or wheezing. HEART: Audible, mostly regular with good tones. This patient does have a pacemaker on the left upper anterior chest. No murmurs. ABDOMEN: Flat, soft with no masses palpable. No remarkable tenderness. No bruit. Bowel sounds are active. LOWER EXTREMITIES: Essentially symmetrical and equal with minimal ankle edema. Scar from the left hip fracture surgery. UPPER EXTREMITIES: Symmetrical and equal. LUMBAR AREA: The patient has an incision in the back and without any signs of infection. ASSESSMENT: 1. ONE BURST FRACTURE WITH RETROPULSION L3 2. KYPHOPLASTY L2 3. TYPE I DIABETES MELLITUS 4. NEAR TOTAL BLINDNESS SECONDARY TO THE DIABETES MELLITUS 5. LEFT HIP REPLACEMENT 6. LEFT TOTAL KNEE REPLACEMENT BY HISTORY 7. PERMANENT PACER 8. STRESS INCONTINENCE PROGNOSIS: Guarded. MTDD
[2017-10-27] MEDS: HUMALOG SUBCUT PRN ×3 (12:03→20:55)
[2017-10-27] MEDS: VITAMIN D PO SCH (17:27)
[2017-10-27] MEDS: LEVEMIR SUBCUT SCH (20:55)
[2017-10-27] MEDS: ZOCOR PO SCH (20:56)
--- NOTE | 2017-10-28 07:49 | PN ---
DATE OF VISIT: 10/26/17 SUBJECTIVE: The patient is alert and responsive. She had movement of all extremities upper and lower. Not dyspneic or tachypneic. FACE: Symmetrical and equal and cooler is OK. HEART: Audible with good tones LUNGS: Clear ABDOMEN: Flat and soft LOWER EXTREMITIES: no tenderness in the calf muscles. I had talked to her grandson today since the patient was asking to go home. I needed to know what her grandson idea about going home and also what kind of logistical help is available to them. Jesse told me that they will do everything to them and also Home Health nursing will be going to visit them. I told Jesse that she needed to walk more here in the hospital as well as at home. The physical therapy does ambulate her twice a day. Wanted to get her to stay as long as he can in this facility for rehab before going home. I told him that yes we will try to do that and also hopefully her physical strength would improve. BETTY
[2017-10-28] MEDS: VITAMIN D PO SCH (08:30)
[2017-10-28] MEDS: LOVENOX SUBCUT SCH (08:30)
[2017-10-28] MEDS: NORVASC PO SCH (08:30)
[2017-10-28] MEDS: HUMALOG SUBCUT PRN ×3 (11:45→22:08)
[2017-10-28] MEDS: ZOCOR PO SCH (20:37)
[2017-10-28] MEDS: MIRALAX PO SCH (21:14)
[2017-10-28] MEDS: LEVEMIR SUBCUT SCH (22:06)
[2017-10-29] MEDS: PERCOCET 5-325 PO PRN (01:03)
[2017-10-29] MEDS: NORVASC PO SCH (09:49)
[2017-10-29] MEDS: MIRALAX PO SCH (09:50)
[2017-10-29] MEDS: LOVENOX SUBCUT SCH (09:50)
[2017-10-29] MEDS: VITAMIN D PO SCH (09:53)
[2017-10-29] MEDS: HUMALOG SUBCUT PRN ×3 (11:44→21:26)
[2017-10-29] MEDS: LEVEMIR SUBCUT SCH (21:25)
[2017-10-29] MEDS: ZOCOR PO SCH (21:25)
[2017-10-30] MEDS: MIRALAX PO SCH (09:52)
[2017-10-30] MEDS: NORVASC PO SCH (09:54)
[2017-10-30] MEDS: VITAMIN D PO SCH (09:55)
[2017-10-30] MEDS: LOVENOX SUBCUT SCH (09:56)
[2017-10-30] MEDS: HUMALOG SUBCUT PRN ×2 (11:40→17:22)
[2017-10-30] MEDS: PERCOCET 5-325 PO PRN ×2 (15:43→21:00)
[2017-10-30] MEDS: LEVEMIR SUBCUT SCH (20:30)
[2017-10-30] MEDS: ZOCOR PO SCH (20:30)
[2017-10-31] MEDS: PERCOCET 5-325 PO PRN ×2 (02:01→17:23)
[2017-10-31] MEDS: VITAMIN D PO SCH (08:53)
[2017-10-31] MEDS: NORVASC PO SCH (08:53)
[2017-10-31] MEDS: MIRALAX PO SCH (08:55)
[2017-10-31] MEDS: LOVENOX SUBCUT SCH (08:55)
[2017-10-31] MEDS: HUMALOG SUBCUT PRN (18:21)
[2017-10-31] MEDS: LEVEMIR SUBCUT SCH (21:39)
[2017-10-31] MEDS: ZOCOR PO SCH (21:39)
--- NOTE | 2017-11-01 08:02 | PN ---
DATE OF VISIT: 10/28/17 SUBJECTIVE: The patient is alert, responsive and cooperative. There are days that she feels good and there are days that she feels tired easier. LUNGS: Remain clear HEART: Normal sinus rhythm EXTREMITIES: Legs have no edema and no tenderness in the calf muscles. She is getting rehabilitation. She wants to go home and the family wants to make use of the time for her to get stronger in the hospital before going home. They need someone to help them at home since Ryan, her is already getting older and has difficulty trying to help her get up. VITALS: Temperature 98.2, pulse 72, blood pressure 136/73, respiratory rate 16, oxygen saturation 98 at room air. This patient had Kyphoplasty of L2. She did have a burst fracture of L3 with retropulsion. PROGNOSIS: Guarded MTDD
--- NOTE | 2017-11-01 09:09 | PN ---
DATE OF VISIT: 10/30/17 SUBJECTIVE: The patient's general condition is good. The patient is always listening to a story and her earphones are always on her ears. 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 Her general appearance is good, color is good and she is not dyspneic or tachypneic. LUNGS: Clear HEART: Audible with occasional irregular. The patient does have a permanent pacer. ABDOMEN: Soft and nontender EXTREMITIES: No edema and no tenderness in the calf muscles. CONDITION: Stable MTDD
--- NOTE | 2017-11-01 09:16 | PN ---
DATE OF VISIT: 10/31/17 SUBJECTIVE: The patient is alert and responsive. Her vital signs showed a temperature of 97.2 axillary, pulse 70, blood pressure 132/75, respiratory rate 18, oxygen saturation 97 at room air. Color is good. The patient answers questions. HEART: Audible and slightly irregular LUNGS: Clear LEGS: Unremarkably The patient had not had any chemistries or hematology since 10/24/17 and one will be ordered for tomorrow. The patient again is asking as to be when she can go home. I did tell her that when thing are ready for her to go home and she needed somebody to help her since Mr. Diaz is not able to completely help her or do the job needed to ambulate her. BETTY
[2017-11-01] MEDS: NORVASC PO SCH (09:22)
[2017-11-01] MEDS: VITAMIN D PO SCH (09:22)
[2017-11-01] MEDS: MIRALAX PO SCH (09:24)
[2017-11-01] MEDS: LOVENOX SUBCUT SCH (09:24)
[2017-11-01] MEDS: HUMALOG SUBCUT PRN ×2 (13:32→17:37)
[2017-11-01] MEDS: ZOCOR PO SCH (20:50)
[2017-11-01] MEDS: LEVEMIR SUBCUT SCH (20:51)
[2017-11-02] MEDS: MIRALAX PO SCH (10:16)
[2017-11-02] MEDS: VITAMIN D PO SCH (10:17)
[2017-11-02] MEDS: LOVENOX SUBCUT SCH (10:17)
[2017-11-02] MEDS: NORVASC PO SCH (10:17)
[2017-11-02] MEDS: HUMALOG SUBCUT PRN (12:11)
[2017-11-02] MEDS: LEVEMIR SUBCUT SCH (20:33)
[2017-11-02] MEDS: ZOCOR PO SCH (20:33)
[2017-11-03] MEDS: PERCOCET 5-325 PO PRN ×2 (01:26→21:00)
[2017-11-03] MEDS: VITAMIN D PO SCH (09:23)
[2017-11-03] MEDS: LOVENOX SUBCUT SCH (09:23)
[2017-11-03] MEDS: MIRALAX PO SCH (09:24)
[2017-11-03] MEDS: NORVASC PO SCH (09:24)
[2017-11-03] MEDS: HUMALOG SUBCUT PRN ×2 (11:19→17:33)
[2017-11-03] MEDS: LEVEMIR SUBCUT SCH (21:00)
[2017-11-03] MEDS: ZOCOR PO SCH (21:00)
[2017-11-04] MEDS: PERCOCET 5-325 PO PRN ×2 (06:18→20:50)
[2017-11-04] MEDS: VITAMIN D PO SCH (08:01)
[2017-11-04] MEDS: LOVENOX SUBCUT SCH (08:01)
[2017-11-04] MEDS: MIRALAX PO SCH (08:01)
[2017-11-04] MEDS: NORVASC PO SCH (08:02)
[2017-11-04] MEDS: HUMALOG SUBCUT PRN ×2 (11:36→16:40)
--- NOTE | 2017-11-04 14:35 | OTPN ---
Subjective - Patient Information Date of Evaluation: 10/19/17 Date of Arrival on Unit: 10/18/17 Diagnosis: muscle weakness Patient Reports/Comments: Pt reports she is doing better. Objective Objective: Pt to increase independence of functional transfers for self care management. Short Term Goals - Goals GOAL 1: Moderate (A) with functional mobility and RW Goal to be met by: 11/02/17 Progress towards goal: Met GOAL 2: F ADL balance Goal to be met by: 11/02/17 Progress towards goal: Met GOAL 3: Mod (A) with self care Goal to be met by: 11/02/17 Progress towards goal: Met Material Engineer Goals GOAL 1: Minimal (A) with functional mobility and RW Goal to be met by: 11/16/17 Progress towards goal: Met GOAL 2: Good ADL balance Goal to be met by: 11/16/17 Progress towards goal: Partially Met GOAL 3: Min (A) with self care Goal to be met by: 11/16/17 Progress towards goal: Progressing Assessment and Plan Assessment/Progress: Pt has increased her BUE AROM. Pt has increased her sit to stand from BSC to CGA level. Pt completed with verbal cues. Pt improving in her strength.Pt is not tolerating 2 minute on UB bike. Plan: Pt to go home with on Wednesday. Pt to receive Home Health services when he gets home.
--- NOTE | 2017-11-04 16:18 | PN ---
Subjective - Patient Information Date of Evaluation: 10/18/17 Date of Arrival on Unit: 10/18/17 Diagnosis: open wedge compression fx L3 s/p Kyphoplasty Patient Reports/Comments: pt states he hopes to go home in next two days. pt states she is tired. Objective Objective: pt transfers sup to/from sit min x 1, sit to/from stand CGA from BSC , bed, w/c, pt requires mod assist from low recliner. pt amb with rwx 120ft with CGA with improved posture, and sequencing. Strength: BLE hip flex 4/5, knee flex/ext 4/5, ankle Df/PF 4+/5. pt continues with muscle tightness in low back, trunk Short Term Goals GOAL #1: pt perform rolling and bridging in bed with mod x 1 Goal to be met by: 10/26/17 Progress towards Goal:: Met GOAL #2: pt transfer sup to/from sidelying to/from sit to/from stand mod x 1 Goal to be met by: 10/26/17 Progress towards Goal:: Met GOAL #3: pt amb with rwx 50ft with min x 1-2 with improved posture, no LOB Goal to be met by: 10/26/17 Progress towards Goal:: Met Fpc Goals GOAL #1: pt demonstrate rolling and bridging independently Goal to be met by: 11/06/17 Progress towards goal: Progressing Comments: can perform bridging with cues, rolling min x 1 GOAL #2: pt transfer sup to/from sidelying to/from sit to/from stand CGA Goal to be met by: 11/06/17 Progress towards goal: Progressing Comments: sup to sidelying to sit min x 1, sit to/from stand CGA to min GOAL #3: pt amb with rwx 150 with CGA with no LOB (revised goal) Goal to be met by: 11/06/17 Progress towards goal: Progressing Comments: pt has previously met, however not consistently Assessment and Plan Assessment/Progress: pt has met all STG and is progressing toward remaining LTG. pt has made significant improvement in gait and transfers as well as LE strength. pt approaching max rehab potential and plans to be dc on 11/06/17 Plan: MD plans to dc pt home with home health on 11/06/17. Plan to reinforce safety teaching and HEP with patient and spouse on 11/05/17
[2017-11-04] MEDS: ZOCOR PO SCH (20:47)
[2017-11-04] MEDS: LEVEMIR SUBCUT SCH (20:48)
[2017-11-05] MEDS: HUMALOG SUBCUT PRN ×4 (06:12→20:17)
[2017-11-05] MEDS: VITAMIN D PO SCH (08:46)
[2017-11-05] MEDS: LOVENOX SUBCUT SCH (08:46)
[2017-11-05] MEDS: NORVASC PO SCH (08:46)
[2017-11-05] MEDS: MIRALAX PO SCH (08:46)
--- NOTE | 2017-11-05 10:56 | PN ---
DATE OF VISIT: 11/01/17 The patient is alert and responsive. Her hearing is adequate. She is nearly totally blind. She is wanting to know when she can go home. I told her that we will send her home as soon as she completed her physical therapy, plus occupational. Blood sugar today is 115 fasting. Her E GFR is 71. Albumin slightly higher now at 3.3. WBC normal at 9,080. Hemoglobin and hematocrit lower normal. The incision in the back is dry without any redness. The dressing is still in place. MTDD
--- NOTE | 2017-11-05 11:02 | PN ---
DATE OF VISIT: 11/02/17 The patient is alert and responsive. VITAL SIGNS: At 6 p.m. on 11/02/2017 showed a temperature 97.5 axillary, pulse 87, blood pressure 138/69, respiratory rate 20, oxygen saturation 98 at room air. Appetite is still not as good. The patient, however, does eat breakfast, as well as lunch when her is feeding her. She is eating less amount of food during dinner time. LUNGS: Clear to auscultation, although diminished. HEART: Normal sinus rhythm most of the time. ABDOMEN: Nontender. She denies any significant pain. I had talked to Mr. Yovani Diaz, her , as to when she is going home and I asked Muriel Banegas and she said that she still has about five days left and that would be until Wednesday. I told Mr. Diaz that we most likely will send her home on Wednesday after her physical therapy is completed and if and when the physical therapist has decided that she has obtained the maximum benefit. MTDD
--- NOTE | 2017-11-05 11:06 | PN ---
DATE OF VISIT: 11/03/17 The patient was ambulating in the hallway with the chief physical therapist. She is needing minimal assist to use when walking with a walker. The was present and the patient again wanted to know when she is going home and I told her that it most likely would be Wednesday. Mr. Diaz told me that he is getting things ready for her to go home and will tell the grandson that she is coming home this coming Wednesday unless something else happens. CONDITION: Stable. MTDD
[2017-11-05] MEDS: ZOCOR PO SCH (20:16)
[2017-11-05] MEDS: LEVEMIR SUBCUT SCH (20:19)
[2017-11-06 06:00] VITALS: BP 132/66; TEMP 98.4
[2017-11-06] MEDS: MIRALAX PO SCH (09:18)
[2017-11-06] MEDS: VITAMIN D PO SCH (09:19)
[2017-11-06] MEDS: NORVASC PO SCH (09:20)
[2017-11-06] MEDS: LOVENOX SUBCUT SCH (09:25)
--- NOTE | 2017-11-08 13:31 | PN ---
DATE OF VISIT: 10/19/17 The patient is alert and responsive and does follow verbal commands. She does recognize me. She has movement of all extremities, upper and lower and no cyanosis. HEART: Audible and mostly regular. ABDOMEN: Unremarkable. LUNGS: Still clear. This patient is on Heparin 5,000 Units subcutaneously every 8 hours. I did contact the neurosurgeon to whether that is the amount of anticoagulant that he wanted. The neurosurgeon's office said that it did not come from them and it was ordered by the hospitalist. We will try to get in touch with the hospitalist to see why it was given at 5,000 units subcutaneously. MTDD
--- NOTE | 2017-11-08 13:36 | PN ---
DATE OF VISIT: 10/20/17 The patient is alert and responsive. VITAL SIGNS: The patient's vital signs at 5:32 p.m. on 10/20/17 showed a temperature of 98.6, pulse 80, blood pressure 126/68, respiratory rate 18, oxygen saturation 97. The patient does eat at noon time when the is present. The patient's Accu-check shows a blood sugar of slightly below 200 to 200+. Her color is good and is not dyspneic, nor tachypneic. The patient did not have any significant pain. The pain comes with changes in position or movement. This patient is undergoing physical therapy. The hospitalist mentioned that the Heparin was used as a prophylaxis. The Heparin then will not be given tomorrow , but will be replaced with Lovenox. BETTY
--- NOTE | 2017-11-08 13:41 | PN ---
DATE OF VISIT: 10/21/17 The patient is alert and responsive, although she could hardly hear you and she could not also see very well. She does follow verbal commands. She is not dyspneic, nor tachypneic and no cyanosis. She has movement of all extremities. The patient did walk with help yesterday, parallel bars. LUNGS: No rales. HEART: Mostly regular. CONDITION: Stable. MTDD
--- NOTE | 2017-11-08 13:48 | PN ---
DATE OF VISIT: 10/22/17 The patient is alert and with movement of all extremities. She claims that she is feeling better. She did eat all of her food at lunch being fed by her . LUNGS: Clear. HEART: Audible with good tones and mostly regular. VITAL SIGNS: At 6 p.m. on 10/22/17 showed a temperature of 98.1, pulse 84, blood pressure 148/57, respiratory rate 18, oxygen saturation 94 at room air. This patient is receiving Lovenox 40 mg subq prophylactically. We will repeat the hematology, plus chemistry tomorrow. The last one was 10/19/2017. We will also obtain a urinalysis. MTDD
--- NOTE | 2017-11-08 13:53 | PN ---
DATE OF VISIT: 10/23/17 The patient is alert and listening to music. She wanted to know when she can go home. I did inform her that I had to discuss that with her family. She indeed needed somebody to help her since her is now also getting older. The patient's general appearance is good. She denies any significant pain. HEART: Normal sinus rhythm. LUNGS: Clear. CONDITION: Stable. We will discuss discharge and post hospital care with the family. BETTY
--- NOTE | 2017-11-09 15:01 | PN ---
DATE OF VISIT: 10/28/17 The patient, today, is alert and oriented. 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 She is asking as to when she can go home. I told her that we needed to make sure that she has enough help when she goes home. Her is not able to lift her up anymore. VITAL SIGNS: At 5:28 p.m. showed a temperature of 97.7, pulse 85, blood pressure 138/61, respiratory rate 18, oxygen saturation 95 at room air. LUNGS: Clear to auscultation in both sides. HEART: Audible with good tones. ABDOMEN: Nontender. LOWER EXTREMITIES: No significant swelling and no tenderness in the calf muscles. This patient had L2 kyphoplasty. GIOVANNID
--- NOTE | 2017-11-10 15:48 | DS ---
PATIENT IDENTIFICATION: 86 year old female who fell at home and then presented to the emergency room a few days later and was found to have a burst fracture of the L3. Retropulsion was noted and I was contacted by the emergency room physician and did advise the ER doctor to transfer her to a neurosurgeon since there is retropulsion. HOSPITAL COURSE: The patient was then transferred to [place] and was seen by a Neurosurgeon Dr. Mcdaniel and did perform the Kyphoplasty. The patient was continued on Levemir. This patient prior to admission to [facility] was on Lantus and also on Humalog 75/ 25 in the morning. That had been changed. This patient was given Levemir on sliding scale Humulin R. The patient had been increasing getting better and physical therapy had walked her with minimal assistance. Her hgb is in the lower normal and remained in that category. Her blood sugar more or less had been controlled except for one instance on 10/24/17 where a reading of 521 early in the morning was recorded. Her vitamin D 25 Hydroxy also was slightly below normal 18.1 normal being 19.1 and 79.3. She continued to improve and on the patient was discharged and alert and responsive. She does answer questions correctly. She is nearly totally blind, what she can see is more or less a shadow. LUNGS: Clear to auscultation at discharge HEART: Normal sinus rhythm VITAL SIGNS: Temperature 98.4, pulse 85, blood pressure 132/66, respiratory rate 16 and oxygen saturation 96% at room air. The patient's medication was listed as Levemir and since this is not what she had at home and this was then changed to Lantus. I advised to take 16 units Lantus in the evening and 20 units of Humalog 25/75. She needs to continue her accu-check. She is continued also on Amlodipine 5mg daily, Dulcolax Suppository 10mg as needed, Colace 100mg twice a day, Losartan 50mg twice a day, Oxycodone/ APAP 50-325 one Q 4 hours PRN. The patient never needed any pain medications toward the end of her hospitalization. Simvastatin 10mg tablet daily near bedtime. The patient was instructed to see me 11/12/17 and before with any problems. Keep the appointment with the neurosurgeon 11/09/17. Home Health will be coming to provide physical therapy as well as occupational therapy. Jaja Campos was also recorded to provide assistance at home. [employer] Whe[employer] also will be contacted with regards to food at least once a day. The granddaughter-in -law and grandson are taken care of them. Both however are working during the day. FINAL DIAGNOSES: 1. L3 Fracture with retropulsion treated with kyphoplasty at L2 2. Diabetes Mellitus type 1 good control 3. 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 Left hip replacement 5. Left total knee replacement 6. Permanent pacemaker 7. Stress incontinence PROGNOSIS: Guarded to Poor MTDD
== END 2017-11-06 11:10 | disposition home or self-care (01) | DRG 561 ==
LOC: MEDSURG B 18:38
PROVIDERS: ADMIT General Practice; ATTEND General Practice
DX: S32.031D Stable burst fracture of third lumbar vertebra, subsequent encounter for fracture with routine healing (principal); W18.30XD Fall on same level, unspecified, subsequent encounter; Z98.890 Other specified postprocedural states; E10.39 Type 1 diabetes mellitus with other diabetic ophthalmic complication; Z79.4 Long term (current) use of insulin; H54.8 Legal blindness, as defined in USA; Z96.642 Presence of left artificial hip joint; Z96.652 Presence of left artificial knee joint; Z95.0 Presence of cardiac pacemaker; N39.3 Stress incontinence (female) (male)
CPT/HCPCS: 36415; 80053; 81001; 82652; 82962; 83036; 85025; 87081; 97150; 97802; 99306; 99307; 99308; 99316

== ENCOUNTER 2017-12-09 08:16 | Inpatient (IN) | payer OTHER ==
--- NOTE | 2017-12-09 08:40 | ED.PDOC ---
General ED Provider: Dr. CAN ROGERS Chief Complaint: Fall Stated Complaint: Weakness. stated she had ambulated to bathroom and she required assistance getting back to bed when she stopped walking and he helped her to the floor so she would not fall. He stated she has become terribly weak since yesterday. Time Seen by Physician: 08:30 Mode of Arrival: Ambulance Information Source: Patient, EMT Exam Limitations: Dementia Primary Care Provider: MARCUS CHRISTINAJanett Referred to ED by: Other () Nursing and Triage Documentation Reviewed and Agree: Yes Reviewed sepsis parameters & appropriate labs ordered?: Yes System Inflammatory Response Syndrome: Not Applicable Sepsis Protocol: For patient's 13 years and over: Temp is 96.8 and below OR 101 and greater Pulse >90 BPM Resp >20/minute Acutely Altered Mental Status Are patient's symptoms suggestive of a new infection, such as: -Pneumonia -Skin, Soft Tissue -Endocarditis -UTI -Bone, Joint Infection -Implantable Device -Acute Abdominal Infection -Wound Infection -Meningitis -Blood Stream Catheter Infection -Unknown System Inflammatory Response Syndrome: Not Applicable Miscellaneous Complaint Exam - Physical Examination Complaint/Exam Onset/Duration: 24 hrs Symptoms Are: Still present Timing: Constant Episodes Lasting: Minutes Initial Severity: Mild Current Severity: Mild Location: Generalized Specific Findings: Generalized weakness. Some dementia. Oriented to self, home residence, husbands name, and current location. Review of Systems - Review Of Systems Constitutional: Reports: Weakness Eyes: Reports: Blindness Ears, Nose, Mouth, Throat: Reports: No symptoms Respiratory: Reports: No symptoms Cardiac: Reports: No symptoms GI: Reports: No symptoms : Reports: No symptoms Musculoskeletal: Reports: No symptoms Skin: Reports: No symptoms Neurological: Reports: No symptoms, Unable to move lower ext Endocrine: Reports: No symptoms Hematologic/Lymphatic: Reports: No symptoms All Other Systems: Reviewed and Negative Past Medical History - Past Medical History Previously Healthy: No Endocrine: Reports: DM 2, Dyslipidemia Cardiovascular: Reports: Hypertension Respiratory: Reports: None Hematological: Reports: None Gastrointestinal: Reports: None Genitourinary: Reports: None Neuro/Psych: Reports: None Musculoskeletal: Reports: None Cancer: Reports: None Last Menstrual Period: n/a - Surgical History General Surgical History: Reports: None - Family History Family History: Reports: None - Social History Smoking Status: Never smoker Hx Substance Use: No Alcohol Screening: None Physical Exam - Physical Exam Appearance: Ill-appearing, No pain distress, Thin Ill-appearing: Mild Pain Distress: None Eyes: ROSENDA, EOMI, Conjunctiva clear ENT: Ears normal, Nose normal, Oropharynx normal Neck: Supple Respiratory: Airway patent, Breath sounds clear, Breath sounds equal Cardiovascular: RRR, Pulses normal, No murmur GI/: Soft, Nontender, No masses, Bowel sounds normal Musculoskeletal: Normal strength, ROM intact, No edema Skin: Warm, Dry, Pale Neurological: Sensation intact, Alert, Oriented (Time, place, cirumstances, self , location and circumstance. ) Critical Care Note - Critical Care Note Total Time (mins): 0 Course - Course Hematology/Chemistry: 12/09/17 09:10 12/09/17 09:10 Orders, Labs, Meds: Lab Review 12/09/17 12/09/17 09:10 09:10 WBC 8.44 RBC 4.34 Hgb 12.8 Hct 37.3 MCV 85.9 MCH 29.5 MCHC 34.3 RDW Coeff of Momo 15.7 H Plt Count 177 Immature Gran % (Auto) 0.6 Neut % (Auto) 76.2 Lymph % (Auto) 13.2 [place] % (Auto) 6.9 Eos % (Auto) 2.6 Baso % (Auto) 0.5 Immature Gran # (Auto) 0.1 Neut # (Auto) 6.4 Lymph # (Auto) 1.1 [place] # (Auto) 0.6 Eos # (Auto) 0.2 Baso # (Auto) 0.0 Sodium 143 Potassium 3.9 Chloride 108 H Carbon Dioxide 27 Anion Gap 11.9 BUN 24 H Creatinine 0.73 Estimated GFR (MDRD) 76.00 BUN/Creatinine Ratio 32.87 Glucose 84 Calcium 9.8 Magnesium 1.9 Total Bilirubin 0.9 AST 12 L ALT 14 Alkaline Phosphatase 82 Total Creatine Kinase 27 Troponin I 0.0130 Total Protein 6.5 Albumin 3.3 L Globulin 3.2 Albumin/Globulin Ratio 1.03 Orders Category Date Time Status EKG-(ED ONLY) Stat CARDIO 12/09/17 08:55 Completed Vital signs [ED VITAL SIGNS] DIRECTED EMERGENCY 12/09/17 08:58 Active CBC W/ AUTO DIFF Stat LAB 12/09/17 09:10 Completed CMP [COMPREHENSIVE METABOLIC PANEL] Stat LAB 12/09/17 09:10 Completed CREATINE KINASE Stat LAB 12/09/17 09:10 Completed MAGNESIUM Stat LAB 12/09/17 09:10 Completed TROPONIN I Stat LAB 12/09/17 09:10 Completed UA [URINALYSIS C & S IF INDICATED] Stat LAB 12/09/17 08:55 Uncollected CHEST, 1V AP ONLY Stat RADS 12/09/17 08:56 Completed Vital Signs: Temp Pulse Resp BP Pulse Ox 12/09/17 08:17 97.1 F L 67 20 185/67 H 95 Departure - Departure Time of Disposition: 11:00 Disposition: PLACED OBSERVATION Discharge Problem: Fall, Weakness generalized, Dementia Condition: Fair Pt referred to PMD for follow-up: Yes (admitted for observaton ) IPMP verified?: No Additional Instructions: Spoke with Dr Maravilla regarding patients condition. Advised to place in observation. Case management evaluation dsge planning Allergies/Adverse Reactions: Allergies Faizan Intolerance Adverse Reaction (Uncoded 06/13/15 10:49) Cough Statin Intolerance Adverse Reaction (Uncoded 06/13/15 10:49) Crestor- arm pain Home Medications: Ambulatory Orders Docusate Sodium [Colace] 100 mg PO BID PRN 10/12/17 Acetaminophen [Tylenol] 650 mg PO Q4H PRN 10/18/17 Bisacodyl [Dulcolax] 10 mg RC DAILY PRN 10/18/17 Oxycodone-Acetaminophen 5-325 [Percocet 5-325] 1 tab PO Q4H PRN 10/18/17 Losartan Potassium [Cozaar] 50 mg PO BID 10/20/17 Disposition Discussed With: Patient, Family
--- NOTE | 2017-12-09 09:25 | DI ---
Exam: Chest one-view History: Arrythmia FINDINGS: Compared with 10/18/2017. Parenchymal scarring in the left base again noted. No infiltra tive opacities. Normal cardiomediastinal contours. Atherosclerotic calcification of the aorta. Lef t approach dual chamber pacemaker. No acute chest wall abnormality. Impression: No acute cardiopulmonary disease and no change from prior.
[2017-12-09 12:34] VITALS: BMI 22.7
[2017-12-09] MEDS ORDERED: TYLENOL PO PRN (13:22)
[2017-12-09] MEDS ORDERED: COLACE PO PRN (13:22)
[2017-12-09] MEDS ORDERED: DULCOLAX RC PRN (13:22)
[2017-12-09] MEDS ORDERED: PERCOCET 5-325 PO PRN (13:22)
[2017-12-09] MEDS ORDERED: POTASSIUM CHLORIDE 20 MEQ VIAL-ADDITIVE ONLY 20 MEQ, INFUVITE ADULT 10 ML in SODIUM CHL... IV SCH (13:30)
[2017-12-09] MEDS ORDERED: NON-FORMULARY MEDICATION (Losartan Potassium 50 MG) PO SCH (13:30)
[2017-12-09] MEDS: COZAAR PO SCH ×2 (14:48→22:04)
[2017-12-09] MEDS: NORVASC PO SCH (14:48)
[2017-12-09] MEDS: INFUVITE ADULT 10 ML in SODIUM CHLORIDE 0.45%-KCL 20 MEQ 1,000 ML IV SCH (14:48)
--- NOTE | 2017-12-09 16:20 | RS.OTINEVL ---
Subjective - Patient information Date of Evaluation: 12/09/17 Date of Arrival on Unit: 12/09/17 Admitted From:: Home Usual Living Arrangement: With Spouse Living Arrangement Comments: has a ramp, uses a rolling walker, has as a caregiver Home Environment: House Medical History Comments:: L lumpectomy, L TKA 2007, Hx of left hip fx, bloodclots in lump 2007, legally blind, , cholecystectomy, gallbladder removed, L3 compression fx, arthritis Surgical History: Knee Replacement, Hip Replacement, Cholecystectomy, - Level of function Prior to this admission, the patient could do the following:: Partially Dependent Ambulation Current Equipment Used at Home: Has a ramp, uses a rolling walker, lift chair, home health comes in. Glucometer Pain Assessment - Pain Pain Score: 0 Interventions - Objective Patient Orientation: Person Current Interventions: IV's Observation: Pt is confused. Pt very weak. Pt appears to have difficulty initiating motor planning intermittently. Interventions - ROM Right Upper Extremity AROM: Slight limitation Left Upper Extremity AROM: Slight limitation - Strength Right Upper Extremity Strength: Mild Weakness Left Upper Extremity Strength: Mild Weakness - Sensation Right Upper Extremity Sensation: Intact/Normal Left Upper Extremity Sensation: Intact/Normal Balance - Sitting Balance Static Sitting Balance: Poor Dynamic Sitting Balance: Poor - Standing Balance Static Standing Balance: Poor Dynamic Standing Balance: Poor - Comments Balance Assessment Comments: Poor ADL Skills - Self Feeding Self Feeding: Min Assist - Grooming Grooming: Mod Assist - Bathing Bathing UE: Min Assist Bathing LE: Max Assist - Dressing Dressing UE: Min Assist Dressing LE: Max Assist, 2 person assist - Toilet Management Toileting Management: Max Assist, 2 person assist Functional Mobility - Bed Mobility Rolling R/L: Min Assist Scooting: Min Assist Supine to Sit: Max Assist, 2 person assist Sit to Supine: Max Assist, 2 person assist - Transfers Sit to Stand: Max Assist, 2 person assist Stand to Sit: Max Assist, 2 person assist Stand Pivot Transfers: Max Assist, 2 person assist - Ambulation Weight Bearing Status: FWB Assistive Device Used: Rolling Walker Assistance needed with Ambulation: Max Assist, 2 person assist - Safety Awareness Safety Awareness: Poor YOHAN INDEX SCORE: . Additional Treatment Performed - Time with patient Total treatment time: 18 Activities Patient Interests:: Visiting/Socializing Patient Education Patient Education: Education of diagnosis, Education of Plan of Care Teaching Recipient: Patient, Family Teaching Methods: Discussion Assessment Problem List:: Decreased level of function, Requires training/education, Decreased safety/Risk of falls, Weakness, Cognitive status limits abilities Rehab Potential: Good Further Therapy Indicated?: Yes Evaluation Complexity: HISTORY: High, EXAM OF BODY SYSTEMS: High, CLINICAL DECISION MAKING: High Short Term Goals - Goals GOAL 1: Moderate (A) with functional mobility and RW Goal to be met by: 12/16/17 GOAL 2: F ADL balance Goal to be met by: 12/16/17 GOAL 3: Mod (A) with self care Goal to be met by: 12/16/17 Airport Ramp Agent Goals GOAL 1: Minimal (A) with functional mobility and RW Goal to be met by: 12/23/17 GOAL 2: Good ADL balance Goal to be met by: 12/23/17 GOAL 3: Min (A) with self care Goal to be met by: 12/23/17 Plan Plan of Care: Therapeutic EX, Neuromuscular Re-Educ, Therapeutic Activity, Self- Care/Home Management Duration of Treatment: 2 Weeks Has the Physician been added for Co-signature?: Yes
[2017-12-09] MEDS: HUMALOG MIX 75-25 SUBCUT SCH (18:28)
[2017-12-09] MEDS ORDERED: LANTUS SUBCUT SCH (21:00)
[2017-12-09] MEDS: ZOCOR PO SCH (22:04)
[2017-12-10] MEDS ORDERED: INFUVITE ADULT IV ONE (02:55)
[2017-12-10] MEDS: INFUVITE ADULT 10 ML in SODIUM CHLORIDE 0.45%-KCL 20 MEQ 1,000 ML IV SCH ×2 (03:02→16:25)
[2017-12-10] MEDS: COZAAR PO SCH ×2 (09:41→22:02)
[2017-12-10] MEDS: NORVASC PO SCH (09:41)
[2017-12-10] MEDS: HUMALOG MIX 75-25 SUBCUT SCH (09:42)
--- NOTE | 2017-12-10 14:17 | RS.PTINEVL ---
Subjective - Patient information Date of Evaluation: 12/10/17 Date of Arrival on Unit: 12/09/17 Admitted From:: Home Diagnosis: weakness, s/p fall Usual Living Arrangement: With Spouse Living Arrangement Comments: lives with elderly spouse, amb with rwx with assist of spouse Home Environment: House, Stairs (few) Medical History: Hypertension, Dementia, Diabetes Medical History Comments:: vision impaired LATEX ALLERGY?: No Medications: see chart Subjective Information/ Patient Comments:: pt states "I will get up and sit in the chair" - Level of function Prior to this admission, the patient could do the following:: Partially Dependent Ambulation Abilities prior to this admission: pt amb with rwx with assist of Current Level of Function: Partially Dependent Current Equipment Used at Home: Has a ramp, uses a rolling walker, lift chair, home health comes in. Glucometer Interventions - Objective Patient Orientation: Person, Place Current Interventions: IV's Range of Motion - ROM Right Upper Extremity AROM: Moderate limitation (shld flex/abd limited) Left Upper Extremity AROM: Moderate limitation (shld flex/abd limited) Right Lower Extremity AROM: Moderate limitation (decreased knee flex, hip flex) Left Lower Extremity AROM: Moderate limitation (decreased knee flex, hip flex) Muscle Strength - Muscle Strength Right Upper Extremity Strength: Mild Weakness (shld flex 3-/5, elbow flex/ext 4- /5) Left Upper Extremity Strength: Mild Weakness (shld flex 3-/5, elbow flex/ext 4-/ 5) Right Lower Extremity Strength: Mild Weakness (hip flex 3-/5, kneeflex 3-/5, ext 4-/5 ankle DF/PF 4-/5) Left Lower Extremity Strength: Mild Weakness (hip flex 3-/5, kneeflex 3-/5, ext 4-/5 ankle DF/PF 4-/5) Sensation - Sensation Right Upper Extremity Sensation: Intact/Normal Left Upper Extremity Sensation: Intact/Normal Right Lower Extremity Sensation: Intact/Normal Left Lower Extremity Sensation: Intact/Normal Palpation Palpation Findings: None/Normal Balance - Sitting Balance and Reactions Static Sitting Balance: Fair Dynamic Sitting Balance: Poor Sitting Equilibrium Reactions: Delayed Left, Delayed Right Sitting Protective Reactions: Delayed Left, Delayed Right - Standing Balance and Reactions Static Standing Balance: Poor Dynamic Standing Balance: Poor Standing Equilibrium Reactions: Delayed Left, Delayed Right Standing Protective Reactions: Delayed Left, Delayed Right - Comments Balance Assessment Comments: pt unable to maintain sitting balance with challanges. pt leans backward, often losing balance backward Functional Mobility - Bed Mobility Rolling R/L: Mod Assist, Max Assist, 1 person assist Supine to Sit: Max Assist, 2 person assist - Transfers Sit to Stand: Mod Assist, 2 person assist Stand to Sit: Mod Assist, 2 person assist - Safety Awareness Safety Awareness: Poor YOHAN INDEX SCORE: n/a Ambulation - Ambulation Assistive Device Used: Rolling Walker Orthotic/Prosthetic Device: No Distance: 70ft Assistance needed with Ambulation: Min Assist, 2 person assist Gait Deviations: Narrow Based gait, Forward posture, Short stride Ambulation Comments: pt amb with narrowed SHILO with flexed posture and decreased step length. pt requires frequent verbal and tactile cues for posture as well as walker placement Factors Affecting Ambulation: Decreased Balance, Weakness, Decreased Safety, Cognitive Status, Limited Endurance Treatment time - Time with patient Total treatment time: 31 Patient Education - Education Patient Education: Home Exercise Program, Education of Plan of Care Teaching Recipient: Patient Teaching Methods: Discussion Comments: pt POARCH, discussed POC with patient Assessment - Assessment Problem List:: Decreased level of function, Requires training/education, Decreased safety/Risk of falls, Weakness, Cognitive status limits abilities Rehab Potential: Fair Further Therapy Indicated?: Yes Evaluation Complexity: HISTORY: Medium (age, dm, Htn, dementia), EXAM OF BODY SYSTEMS: Medium (cognition, strength, posture, gait), CLINICAL PRESENTATION: Medium (evolving), CLINICAL DECISION MAKING: Medium Short Term Goals GOAL #1: pt perform rolling and bridging in bed with mod x 1 Goal to be met by: 12/13/17 GOAL #2: pt transfer sup to/from sidelying to/from sit to/from stand mod x 1 Goal to be met by: 12/13/17 GOAL #3: pt amb with rwx 80ft with min x 1 with improved posture Goal to be met by: 12/13/17 Progress towards Goal:: Met GOAL #4: pt able to sit at side of bed while reaching, challenges x 5 mins Goal to be met by: 12/13/17 Alf Goals GOAL #1: pt demonstrate rolling and bridging with verbal cues Goal to be met by: 12/16/17 GOAL #2: pt transfer sup to/from sidelying to/from sit to/from stand CGA Goal to be met by: 12/16/17 GOAL #3: pt amb with rwx 150 with CGA with no LOB Goal to be met by: 12/16/17 Plan Plan of Care: Therapeutic EX, Therapeutic Activity Other:: gait training Frequency of Treatment: 1-2 X day, as tolerated Duration of Treatment: 6 days Anticipated Discharge Destination: home vs LTC Has the Physician been added for Co-signature?: Yes
[2017-12-10] MEDS: ZOCOR PO SCH (22:02)
[2017-12-11] MEDS ORDERED: INFUVITE ADULT IV ONE ×2 (04:48→15:04)
[2017-12-11] MEDS ORDERED: POTASSIUM CHLORIDE 20 MEQ VIAL-ADDITIVE ONLY IV ONE (04:48)
[2017-12-11] MEDS: INFUVITE ADULT 10 ML in SODIUM CHLORIDE 0.45%-KCL 20 MEQ 1,000 ML IV SCH ×2 (05:03→21:23)
[2017-12-11] MEDS: HUMALOG MIX 75-25 SUBCUT SCH (10:50)
[2017-12-11] MEDS: CIPRO PO SCH ×2 (10:53→21:23)
[2017-12-11] MEDS: COZAAR PO SCH ×2 (10:54→21:22)
[2017-12-11] MEDS: NORVASC PO SCH (10:54)
[2017-12-11] MEDS: LANTUS SUBCUT SCH ×2 (21:22)
[2017-12-11] MEDS: ZOCOR PO SCH (21:25)
[2017-12-12] MEDS: CIPRO PO SCH ×2 (05:07→20:24)
[2017-12-12] MEDS ORDERED: INFUVITE ADULT IV ONE ×2 (09:05→21:34)
[2017-12-12] MEDS: COZAAR PO SCH ×2 (09:22→20:24)
[2017-12-12] MEDS: NORVASC PO SCH (09:22)
[2017-12-12] MEDS: HUMALOG MIX 75-25 SUBCUT SCH (09:23)
[2017-12-12] MEDS: INFUVITE ADULT 10 ML in SODIUM CHLORIDE 0.45%-KCL 20 MEQ 1,000 ML IV SCH ×2 (09:24→21:57)
[2017-12-12] MEDS: LOVENOX SUBCUT SCH (19:08)
[2017-12-12] MEDS: ZOCOR PO SCH (20:24)
[2017-12-12] MEDS: LANTUS SUBCUT SCH (20:24)
[2017-12-13] MEDS: CIPRO PO SCH (05:25)
[2017-12-13] MEDS: LOVENOX SUBCUT SCH (09:42)
[2017-12-13] MEDS: NORVASC PO SCH (09:42)
[2017-12-13] MEDS: COZAAR PO SCH (09:42)
[2017-12-13] MEDS: HUMALOG MIX 75-25 SUBCUT SCH (09:43)
[2017-12-13] MEDS: INFUVITE ADULT 10 ML in SODIUM CHLORIDE 0.45%-KCL 20 MEQ 1,000 ML IV SCH (09:44)
--- NOTE | 2017-12-13 13:24 | PN ---
DATE OF VISIT: 12/11/17 SUBJECTIVE: The patient is alert and responsive. She has problems seeing because of the blindness. She has residual vision consisting of light perception. She wanted to known when she is going home. I explained to her that she would not be going home right now. We will transfer her to a facility to continue physical rehabilitation and occupational therapy. This also would give her time to rest and recuperate. I told her that her , Ryan is getting weaker and that he needed more rest and strength in order to help her at home. She has redness around the eye and also in the Zygomatic areas. She wipes her eyes quite a lot on both sides and this might have been the reason for the redness. We will try to apply some steroid in the upper and lower lids as well as the area in the Zygomatic area. This will be massaged into the skin and hopefully it will help with the problem. This patient is being followed by an Cissp and Retinologist. VITAL SIGNS: Temperature of 97.8, pulse 76, blood pressure 158/66, respiratory rate 18, oxygen saturation 93 at room air. LUNG: clear to auscultation HEART: Audible and regular This patient does have a pacemaker in the left upper anterior chest. ABDOMEN: Nontender LOWER EXTREMITIES: There are some scabbing abrasion more so on the left leg. Pedal pulse are difficult to find. No significant edema. MTDD
--- NOTE | 2017-12-13 13:37 | DS ---
PATIENT IDENTIFICATION: 87 year old female who resides at home with had recurrent falls. He did fall today in spite of her husbands help. The mentioned that she is getting weaker and he decided to bring her to the emergency room. HOSPITAL COURSE: The patient denied any pain at the emergency room and so no x-rays of the hips or spine was done. This patient had a burst fracture of L3 about mid September 2017. She presented to the emergency room at [facility] on 10/12/17 and transferred to [place] and was readmitted as transition care after surgery to [facility] on . The patient is blind but alert and responsive. She does recognize my name. She always wanted to go home. She is alert. Not dyspneic or tachypneic. LUNGS: Clear to auscultation in both sides HEART: Audible and regular with good tones. The patient does have a pacemaker ABDOMEN: Soft and nontender and denies any back pain. LOWER EXTREMITIES: Movement of the lower extremities present and motor strength is equal. The patient had PT/OT while in the hospital. She needed to continue this at least for some 2-3 weeks and will be done at the rehab at the [facility] facility. I had talked to her the [id number] who is also helping them as well as the . He had indicated to Mrs. Diaz although she doesn't remember that she would be going to [facility] temporarily for some 2-3 weeks to continue her rehab. The time that might make her his strength since he is also getting weaker and so he could be an effective caregiver. The patient during her hospital stay had also been afebrile. The blood pressure has fluctuated as sometimes above the upper normal of limits. Her oxygen saturation was slightly below 95 at room air. She ate a good breakfast which she does that at home also and eats her snack sometimes 100% and sometimes she refuses the snack. She is also given Boost and sometime she refuses to drink the supplement. Her Accu-check on admission was 253 and since then it would have been 118 and 110, 181 and 148 before breakfast. The patient's labs on 12/13/17 on the day of discharge showed CBC essentially normal , hgb 12.4, hct slightly lower 36.4, RBC 4.2, RDW 14.9 slightly higher, BUN 21, blood sugar 148, liver panel normal, Albumin 3.1 and 3.3 on admission. The patient had e-coli treated with Cipro 500mg twice a day according to the sensitivity. This patient will discharged to the [facility] to continue physical therapy. Continue the same medication except for the Percocet which she does not need. We will see how she does in the next 2-3 weeks. I also informed the family that if they would have somebody there during the day to walk her frequently maybe a dozen times that it might help maintain her physical strength. FINAL DIAGNOSES: 1. Generalized debility 2. Burst fracture, L3 recent 10/12/17 Treated with Kyphoplasty 3. 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 Hypertension 6. Hypoalbuminemia 7. Urinary tract infection, e-coli sensitive to Cipro PROGNOSIS: Guarded to Poor MTDD
--- NOTE | 2017-12-13 14:02 | HP ---
CHIEF COMPLAINT: Weakness and fall HISTORY OF PRESENT ILLNESS: The patient had been home with her with the help of her grandson and [id number]. This patient had burst fracture of L3 and kyphoplasty a few months ago. The patient's claimed that his had been getting weaker and tried to get up with his help but the patient fell to the floor. The patient claimed that she is not hurting. The patient was evaluated in the emergency room and subsequently admitted because of the weakness. The patient had a chest x-ray in the emergency room showing no acute cardiopulmonary process. Labs in the emergency showed unremarkably CBC, BUN elevated at 24, EGFR 76, Albumin 3.3, Urine 2+ protein, leukocyte esterase 3+, RBC 5-10, WBC 30- 50. Bacteria 2+, Urine culture showed Escherichia coli. MRSA screen negative. PAST PERSONAL HISTORY: Diabetes mellitus on insulin Hypertension Dyslipidemia Total blindness on retinal problems, diabetes Stress incontinence and urgency History of mini CVA Fracture of left hip, 2011 operated section Total knee replacement, left 2007 Bilateral cataract extraction Pacemaker inserted 08/05/15 Burst fracture L3, seen at [facility] and referred to a Neurosurgeon in [place], treated with Kyphoplasty FAMILY HISTORY: Father of skin malignancy probably melanoma Mother of congestive heart failure Brother Lung carcinoma and from the malignancy Sister had breast carcinoma Some member of the family had diabetes mellitus. SOCIAL HISTORY: The patient is and resides with her who is her acute care nursing assistant. She never did smoke cigarettes or used tobacco products and no alcoholic beverages. MEDICATIONS: Simvastatin 10mg daily Amlodipine 5mg daily Colace 100mg twice a day as needed Tylenol 650 Q 4 hours PRN Oxycodone/APAP 5-325mg one tablet Q 4 hours PRN Dulcolax 10mg suppository PRN Losartan 50mg twice a day Lantus insulin 15units at bedtime Humalog mix 75-25 20 units SUBCUT daily in the morning. ALLERGIES: Faizan She had intolerance to high dosage of Statin. REVIEW OF SYSTEMS: CONSTITUTIONAL: No fever or chills but has generalized weakness and increasing. VISUAL: The patient is blind. AUDITORY: Hearing is decreased. No pain, no drainage and no dizziness. RESPIRATORY: No cough, no shortness of breath with the usual exertion CARDIOVASCULAR: Denies any chest pain or chest oppression GASTROINTESTINAL: The patient's appetite is decreased and denies any abdominal pain or dysphagia or change in bowel habits. GENITOURINARY: The patient is incontinent of urine ENDOCRINE: Negative but the patient is diabetic on insulin, diabetes is well controlled. INTEGUMENT: The patient denies any rash but does have some pleuritis. Scabbing areas in the leg more on the left side. HEMATOLOGIC: No history of prolonged bleeding PSYCHIATRIC: The patient is frustrated to being blind. PHYSICAL EXAMINATION: GENERAL: We have an 87 year old female admitted to the hospital because of increasing weakness and falls. VITAL SIGNS: Temperature 97.4, pulse 66, blood pressure 140/60, respiratory rate 16, oxygen saturation on room air 96%. HEAD: Unremarkable, scalp has no active dermatitis FACE: Symmetrical and equal with no facial weakness. The patient has some redness in the lids right and left side. This patient has been wiping secondary to lacrimation. EYES: Pupils equal/reactive to light. 3mm in size. Conjunctivae not pale. Sclerae not icteric. MOUTH: Unremarkably THROAT: No inflammation, tumors or exudate. NECK: No masses. No bruit. No tenderness. No rigidity. CHEST: Essentially symmetrical and equal with the ribs prominent LUNGS: Breath sounds are heard in both sides, diminished with no rales or wheezing. HEART: Audible and regular with good tones, this is probably pacemaker driven. The patient had a pacemaker inserted 2014 and the generator in the left upper anterior chest. No murmurs. ABDOMEN: Flat, soft with no remarkably tenderness. No guarding, no masses and no bruit. EXTERNAL GENITALIA: Not performed RECTAL: Not performed LOWER EXTREMITIES: Symmetrical and equal with healing scabbing area more on the left leg anterior. Pedal pulses are very difficult to find. UPPER EXTREMITIES: Symmetrical and equal with good hand cutter first and equal. ASSESSMENT: 1. Generalized weakness 2. Fall secondary to #1 3. Recent burst fracture of L3 treated with Kyphoplasty at L2 4. Diabetes Mellitus on insulin control 5. 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 Hip replacement, left 7. Left total knee replacement 8. Cardiac arrhythmia with permanent pacer 9. Urinary incontinence PLAN: 1. Hydration 2. Increase calorie intake 3. Evaluation with PT/OT 4. Will discuss post hospital care with and relatives to see if she can be at the Rehab Facility for some 2-3 weeks to give her more strength. GIOVANNID
--- NOTE | 2017-12-13 14:33 | PN ---
DATE OF VISIT: 12/12/17 SUBJECTIVE: The patient this evening is alert and responsive. She again wanted to know when she was going home. I told her in the presence of the nurse, Luz that she is not going home but instead she is going to a rehabilitation place, [place] and be there probably approximately 2-3 weeks depending on how she processes. I again repeat that her , Ryan, needs to get stronger and rest and cooperate. He is more or less exhausted. LUNGS: Clear to auscultation in both sides but diminished HEART: Normal sinus rhythm ABDOMEN: Nontender LEGS: No tenderness. Scabbing abrasion left anterior leg. Pedal pulses not founds. The patient has an area on the right side of leg which is probably a basal cell carcinoma. VITAL SIGNS: Temperature 98.5, pulse 71, blood pressure 171/68, respiratory rate 16, oxygen saturation 96% at room air. MTDD
[2017-12-13 18:14] VITALS: BP 160/77; TEMP 98.2
--- NOTE | 2017-12-31 08:04 | PN ---
DATE OF VISIT: 12/10/17 SUBJECTIVE: 61 year old female was admitted the day before by the emergency room because of the fall. The patient had generalized weakness and her is unable to take care of her anymore at home. The patient's vital signs today showed a temperature of 98.1, pulse 74, blood pressure 131/74, respiratory rate 16. There was no oxygen determination this time however at 1:12pm today the oxygen saturation was 98 at room air. The patient is alert and does answer questions. She has markedly limited vision, just light. LUNGS: Clear HEART: Audible and regular ABDOMEN: Soft This patient was evaluated by physical therapy today for physical rehab and occupational therapy. She refused snack but did drink the boost. The patient is incontinent of urine. No labs done today. The labs were unremarkable yesterday except for the abnormal urinalysis. Still do not have the ID for the urine culture. Got to wait ID plus DENNYS prior to prescribing medication. MTDD
== END 2017-12-13 19:05 | DRG 948 ==
LOC: ED 08:16 → MEDSURG B 11:22 → OBSVTOIN 11:25
PROVIDERS: ADMIT General Practice; ATTEND General Practice
DX: R53.81 Other malaise (principal); N39.0 Urinary tract infection, site not specified; M62.81 Muscle weakness (generalized); F03.90 Unspecified dementia, unspecified severity, without behavioral disturbance, psychotic disturbance, mood disturbance, and anxiety; E11.69 Type 2 diabetes mellitus with other specified complication; H54.8 Legal blindness, as defined in USA; R32 Unspecified urinary incontinence; S32.031D Stable burst fracture of third lumbar vertebra, subsequent encounter for fracture with routine healing; R29.6 Repeated falls; I10 Essential (primary) hypertension; E88.09 Other disorders of plasma-protein metabolism, not elsewhere classified; S80.812A Abrasion, left lower leg, initial encounter; B96.20 Unspecified Escherichia coli [E. coli] as the cause of diseases classified elsewhere; W19.XXXA Unspecified fall, initial encounter; Z95.0 Presence of cardiac pacemaker; Z79.899 Other long term (current) drug therapy; Z79.4 Long term (current) use of insulin; Z86.73 Personal history of transient ischemic attack (TIA), and cerebral infarction without residual deficits; Z98.1 Arthrodesis status
CPT/HCPCS: 36415; 80053; 81001; 82550; 82962; 83036; 83735; 84484; 85025; 87081; 87086; 87186; 93005; 93010; 99284

== ENCOUNTER 2017-12-13 19:05 | Outpatient (CLI) | payer OTHER | END 2017-12-13 19:06 | LOC: AMBL 19:05 | PROVIDERS: ATTEND Family Medicine | DX: E11.9 Type 2 diabetes mellitus without complications (principal); I10 Essential (primary) hypertension; H54.7 Unspecified visual loss; Z86.73 Personal history of transient ischemic attack (TIA), and cerebral infarction without residual deficits; Z95.0 Presence of cardiac pacemaker ==

== ENCOUNTER 2017-12-17 06:38 | Outpatient (CLI) | END 2017-12-17 06:39 | disposition home or self-care (01) | LOC: NONPT 06:38 | PROVIDERS: ATTEND General Practice | DX: N39.0 Urinary tract infection, site not specified (principal) | CPT/HCPCS: 81001; 87086 ==

== ENCOUNTER 2018-01-07 11:42 | Outpatient (CLI) | payer OTHER | END 2018-01-07 11:43 | disposition home or self-care (01) | LOC: NONPT 11:42 | PROVIDERS: ATTEND General Practice | DX: R35.0 Frequency of micturition (principal); R30.0 Dysuria; R50.9 Fever, unspecified | CPT/HCPCS: 81001; 87086 ==

== ENCOUNTER 2018-02-09 10:01 | Outpatient (CLI) | END 2018-02-09 10:02 | disposition home or self-care (01) | LOC: WOUND 10:01 | PROVIDERS: ATTEND Nurse Practitioner Family | DX: L89.322 Pressure ulcer of left buttock, stage 2 (principal); I10 Essential (primary) hypertension; M62.81 Muscle weakness (generalized); E78.5 Hyperlipidemia, unspecified; N39.3 Stress incontinence (female) (male); R29.6 Repeated falls; E11.9 Type 2 diabetes mellitus without complications ==

== ENCOUNTER 2021-09-03 07:26 | Inpatient (IN) ==
[2021-09-03] MEDS ORDERED: SODIUM CHLORIDE 1,000 ML IV STA (07:28)
[2021-09-03 07:46] LABS: BASOPHILS # (AUTO) 0.1 K/uL (0-0.2); BASOPHILS % (AUTO) 0.4 % (0.0-3.0); EOSINOPHILS # (AUTO) 0.6 K/ul (0.0-0.7); EOSINOPHILS % (AUTO) 4.4 % (0.0-7.0); HEMATOCRIT 33.9 % (37.0-47.0); HEMOGLOBIN 10.4 g/dl (12.0-16.0); IMMATURE GRANULOCYTE # (AUTO) 0.1 (0.0-1.0); IMMATURE GRANULOCYTE % (AUTO) 0.5 % (0.0-5.0); LYMPHOCYTES # (AUTO) 2.6 K/uL (0.60-3.4); LYMPHOCYTES % (AUTO) 19.6 (10.0-50.0); MEAN CORPUSCULAR HEMOGLOBIN 25.6 pg (27.0-31.0); MEAN CORPUSCULAR HGB CONC 30.7 (31.8-35.4); MEAN CORPUSCULAR VOLUME 83.5 fl (81.0-99.0); MONOCYTES # (AUTO) 0.8 K/uL (0.4-2.0); MONOCYTES % (AUTO) 5.9 (0-10); NEUTROPHILS % (AUTO) 69.2 % (42.2-75.2); PLATELET COUNT 229 10^3/uL (140-440); RED BLOOD COUNT 4.06 10^6/ul (4.20-5.40); WHITE BLOOD COUNT 13.05 K/ul (4.6-10.2)
[2021-09-03 07:50] LABS: BILIRUBIN,URINE Negative (NEGATIVE); CLARITY,URINE Cloudy (CLEAR); COLOR,URINE Yellow (YELLOW); GLUCOSE, URINE (UA) Negative (NEGATIVE); KETONES,URINE Negative (NEGATIVE); LEUKOCYTE ESTERASE ,URINE 2+ (NEGATIVE); NITRITE,URINE Positive (NEGATIVE); PH,URINE 8.5 (5-9); PROTEIN,URINE 3+ (NEGATIVE); URINE, BLOOD Trace-lysed (NEGATIVE); UROBILINOGEN,URINE 0.2 (0.2)
--- NOTE | 2021-09-03 07:53 | ED.PDOC ---
General ED Provider: Dr. MONROE LOPEZ Chief Complaint: Urinary Problem Stated Complaint: Pt presents from a [place] [facility] with some increased confusion as well as dark, odorous urine. Pt has an indwelling carlin catheter. She has a history or dementia but is usually somewhat interactive with staff. Today she was less active and they noted that her urine was dark and had a strong odor to it. She has had low grade fevers. No emesis. No complaints of CP or AP. He breathing has been somewhat more rapid than normal. Nothing else has made the sxs better or worse and they are mild in nature. She is a DNR. Time Seen by Provider: 09/03/21 07:28 Mode of Arrival: Walk-In Information Source: Patient Primary Care Provider: MARCUS BELLE MD Nursing and Triage Documentation Reviewed and Agree: Yes Does patient meet sepsis criteria?: No If yes, has appropriate treatment been initiated?: No System Inflammatory Response Syndrome: Not Applicable Sepsis Protocol: For patient's 13 years and over: Temp is 96.8 and below OR 101 and greater Pulse >90 BPM Resp >20/minute Acutely Altered Mental Status Are patient's symptoms suggestive of a new infection, such as: -Pneumonia -Skin, Soft Tissue -Endocarditis -UTI -Bone, Joint Infection -Implantable Device -Acute Abdominal Infection -Wound Infection -Meningitis -Blood Stream Catheter Infection -Unknown Review of Systems Review Of Systems Constitutional: Reports Malaise All Other Systems: Other (Unable to assess ROS given patients confusion) [facility] Medical History (Updated 09/03/21 @ 09:29 by MONROE LOPEZ) GUERITA inhibitor intolerance Bradycardia Breast tumor Congestive heart failure Degenerative joint disease Depression Diabetes mellitus Diabetic retinopathy Hypercalcemia Hypertension Macular degeneration Microscopic hematuria Open wedge compression fracture of third lumbar vertebra with delayed healing (10/12/17) Proteinuria Thyroid goiter (11/30/16) Social History Smoking and tobacco status: Never smoker Surgical History History of section History of surgery (10/12/17) Implantation of cardiac pacemaker Status post cholecystectomy Status post hysterectomy Female Reproductive History Menstrual Hx Hysterectomy: Yes Hx Tubal Ligation: No Physical Exam Physical Exam Appearance: Reports Ill-appearing, No pain distress and Thin Ill-appearing: Mild Pain Distress: None Eyes: Reports ROSENDA, EOMI and Conjunctiva clear ENT: Reports Ears normal, Nose normal and Dry mucosa Neck: Supple Respiratory: Reports Airway patent, Breath sounds clear, Breath sounds equal and Respirations nonlabored Cardiovascular: Reports RRR, Pulses normal, No rub and No murmur GI/: Reports Soft, Nontender, No masses, Bowel sounds normal and No Organomegaly Musculoskeletal: Reports ROM intact, No edema, No calf tenderness and Limited strength Skin: Reports Warm, Dry and Normal color Neurological: Reports Other (Pt is A+O x1 to name only. Pt is very weak but no obvious focal defecits or facial droop.) Psychiatric: Reports Mood appropriate Interpretation EKG Interpretation Time of EKG #1: 08:36 Rate: Normal Rhythm: Other (Atrial paced rhythm) Ectopy: None [place]: NL ST Segment: Other (Expected for a paced rhythm) Critical Care Note Critical Care Note Total Critical Care Time (mins): 0 Course Course Hematology/Chemistry: 09/03/21 07:40 09/03/21 07:40 Orders, Labs, Meds: Lab Review 09/03/21 09/03/21 09/03/21 07:35 07:35 07:40 WBC 13.05 H RBC 4.06 L Hgb 10.4 L Hct 33.9 L MCV 83.5 MCH 25.6 L MCHC 30.7 L RDW Coeff of Momo 19.0 H Plt Count 229 Immature Gran % (Auto) 0.5 Neut % (Auto) 69.2 Lymph % (Auto) 19.6 [place] % (Auto) 5.9 Eos % (Auto) 4.4 Baso % (Auto) 0.4 Neut # (Auto) 9.0 H Lymph # (Auto) 2.6 [place] # (Auto) 0.8 Eos # (Auto) 0.6 Baso # (Auto) 0.1 Immature Gran # (Auto) 0.1 Sodium Potassium Chloride Carbon Dioxide Anion Gap BUN Creatinine Estimated GFR (MDRD) BUN/Creatinine Ratio Glucose Calcium Magnesium Total Bilirubin AST ALT Alkaline Phosphatase Total Creatine Kinase Troponin I Total Protein Albumin Globulin Albumin/Globulin Ratio Urine Color Yellow Urine Clarity Cloudy Urine pH 8.5 Ur Specific Parkin 1.020 Urine Protein 3+ H Urine Glucose (UA) Negative Urine Ketones Negative Urine Blood Trace-lysed Urine Nitrite Positive H Urine Bilirubin Negative Urine Urobilinogen 0.2 Ur Leukocyte Esterase 2+ H Urine Microscopic RBC 0-2 Urine Microscopic WBC 50-100 Ur Squamous Epith Cells Not present Triple Phos Crystals 2+ Amorphous Sediment 3+ Urine Bacteria 4+ SARS CoV-2 RNA Rapid KILEY Negative 09/03/21 09/03/21 07:40 07:40 WBC RBC Hgb Hct MCV MCH MCHC RDW Coeff of Momo Plt Count Immature Gran % (Auto) Neut % (Auto) Lymph % (Auto) [place] % (Auto) Eos % (Auto) Baso % (Auto) Neut # (Auto) Lymph # (Auto) [place] # (Auto) Eos # (Auto) Baso # (Auto) Immature Gran # (Auto) Sodium 162.5 H* Potassium 3.86 Chloride 132.2 H* Carbon Dioxide 25.9 Anion Gap 8.26 BUN 81.0 H* Creatinine 1.73 H Estimated GFR (MDRD) 28.00 BUN/Creatinine Ratio 46.82 Glucose 67.9 L Calcium 8.67 Magnesium 2.62 H Total Bilirubin 0.28 AST 17.5 ALT 12.6 Alkaline Phosphatase 89.3 Total Creatine Kinase 29.5 L Troponin I 0.107 Total Protein 6.20 L Albumin 2.95 L Globulin 3.25 Albumin/Globulin Ratio 0.90 Urine Color Urine Clarity Urine pH Ur Specific Park[place] Urine Protein Urine Glucose (UA) Urine Ketones Urine Blood Urine Nitrite Urine Bilirubin Urine Urobilinogen Ur Leukocyte Esterase Urine Microscopic RBC Urine Microscopic WBC Ur Squamous Epith Cells Triple Phos Crystals Amorphous Sediment Urine Bacteria SARS CoV-2 RNA Rapid KILEY Orders Category Date Time Status EKG-(ED ONLY) Stat CARDIO 09/03/21 08:22 Completed BLOOD CULTURE (ED ONLY) Stat LAB 09/03/21 Ordered CBC W/ AUTO DIFF Stat LAB 09/03/21 07:40 Completed CK [CREATINE KINASE] Stat LAB 09/03/21 07:40 Completed COMPREHENSIVE METABOLIC PANEL Stat LAB 09/03/21 07:40 Completed COVID [SARS COV-2 RNA RAPID KILEY] Stat LAB 09/03/21 07:35 Completed LACTIC ACID Stat LAB 09/03/21 08:22 Ordered MAGNESIUM Stat LAB 09/03/21 07:40 Completed TROPONIN I Stat LAB 09/03/21 07:40 Completed URINALYSIS C & S IF INDICATED Stat LAB 09/03/21 07:35 Completed URINE CULTURE Stat LAB 09/03/21 07:35 Received Ceftriaxone/D5w 1 gm Premix [Rocephin 1 gm/50 ml D5w] MEDS 09/03/21 09:00 Active 1 gm in 50 ml IV DAILY Dextrose 50 % in Water [Dextrose 50%-Water Abboject] MEDS 09/03/21 08:53 Discontinued 25 ml IVP ONCE STA Sodium Chloride 0.9% [Sodium Chloride] 1,000 ml MEDS 09/03/21 07:28 Discontinued IV BOLUS CHEST, 1V AP ONLY Stat RADS 09/03/21 07:[address] HEAD W/O CONTRAST Stat RADS 09/03/21 08:22 Completed Medications Generic Name Dose Route Start Last Admin Trade Name Freq PRN Reason Stop Dose Admin CEFTRIAXONE/D5W 1 GM PREMIX 1 gm in 50 mls @ 75 mls/hr 09/03/21 09:00 Rocephin 1 Gm/50 Ml D5w IV 09/06/21 08:59 DAILY JERRY Discontinued Medications Generic Name Dose Route Start Last Admin Trade Name Freq PRN Reason Stop Dose Admin Dextrose 25 ml 09/03/21 08:53 Dextrose 50 % In Water 50 Ml Disp.Syrin IVP 09/03/21 08:54 ONCE STA Sodium Chloride 1,000 mls @ 1,000 mls/hr 09/03/21 07:28 09/03/21 07:50 Sodium Chloride IV 09/03/21 08:27 1,000 mls/hr BOLUS STA Administration Vital Signs: Temp Pulse Resp BP Pulse Ox 09/03/21 07:28 97.4 F L 84 18 130/70 94 L Discharge Plan Discharge Patient Disposition: ADMITTED INPATIENT Discharge Problem: Altered mental status, Acute UTI, Acute kidney injury, Acute dehydration, Acute hypernatremia Prescriptions: No Action simvastatin 10 MG tablet 10 mg PO BEDTIME Qty: 90 3RF Rx Instructions: Take one tablet by mouth by bedtime. Lantus U-100 Insulin 100 UNIT/1 ML solution 10 units SQ BEDTIME Qty: 1 4RF Rx Instructions: 15 units subcu at bedtime docusate sodium 100 MG capsule 100 mg PO DAILY 0RF cyanocobalamin (vitamin B-12) 1,000 mcg/mL solution 1,000 mcg IM MONTHLY 0RF Rx Instructions: give in the mirtazapine 15 mg tablet 7.5 mg PO BEDTIME 0RF insulin asp prt-insulin aspart [Novolog Mix 70-30 U-100 Insuln] 100 unit/mL (70-30) solution 5 unit SUBCUT ONCE 0RF Rx Instructions: Given at [facility] x 1 cholecalciferol (vitamin D3) 1,250 mcg (50,000 unit) Tablet 1,250 mcg PO MONTHLY 0RF sertraline [Zoloft] 25 mg Tablet 25 mg PO BEDTIME 0RF acetaminophen 325 MG tablet 650 mg PO Q4H PRN (Reason: Mild Pain) 0RF losartan 50 MG tablet 50 mg PO BID 0RF mupirocin calcium 2 % cream 1 applic TP BID 0RF Rx Instructions: apply to lower left leg et rt side of face/neck after cleansing with NSS ED Provider: MONROE LOPEZ Condition: Fair Physician Progress Note: 8:30 AM: I reviewed pt results. CBC shows a WBC of 13.5 with a Hb of 10.4. Chems show a Na of 162, Cl of 132, BUN of 81, Cr of 1.7 and a glucose of 67. U/A shows 2+ LE and positive nitries. At this point, I suspect she is dehydrated and has a UTI. I will add cultures, lactic acid, EKG, cardiac enzymes and a CT for completion and reeval once those result. 9:30 AM: Cardiac enzymes are negative, CXR is unremarkable. Head CT shows no acute findings. It appears that she has a UTI and is dehydrated. I spoke with Dr. Maravilla at the [place] [facility] and he felt she should be admitted for treatment rather then receive treatment at the [place] [facility]. I will admit her for hydration and antibiotics.
[2021-09-03 08:02] LABS: ALANINE AMINOTRANSFERASE 12.6 U/L (0-35); ALBUMIN 2.95 g/dL (3.5-5.0); ALKALINE PHOSPHATASE 89.3 U/L (53-141); ASPARTATE AMINO TRANSFERASE 17.5 U/L (14-36); BILIRUBIN,TOTAL 0.28 mg/dL (0.2-1.3); CALCIUM 8.67 mg/dL (8.4-10.2); CARBON DIOXIDE 25.9 mmol/L (22-30.0); CREATININE 1.73 mg/dL (0.60-1.30); GLUCOSE 67.9 mg/dL (74-106); MAGNESIUM 2.62 mg/dL (1.6-2.3); POTASSIUM 3.86 mmol/L (3.5-5.1); TOTAL PROTEIN 6.2 g/dL (6.3-8.2)
[2021-09-03 08:10] LABS: SODIUM 162.5 mmol/L (134.5-145)
[2021-09-03 08:11] LABS: CHLORIDE 132.2 mmol/L (98-107)
[2021-09-03 08:15] LABS: SQUAMOUS EPITHELIAL CELL,UR NOT PRESENT (0-5); TRIPLE PHOSPHATE CRYSTAL,UR 2+ (NOT PRESENT); URINE RBC, MICROSCOPIC 0-2 (0-2); URINE WBC, MICROSCOPIC 50-100 (0-2)
[2021-09-03 08:16] LABS: AMORPHOUS SEDIMENT,UR 3+ (NOT PRESENT); BACTERIA,URINE 4+ (NOT PRESENT)
[2021-09-03 08:32] LABS: CREATINE KINASE 29.5 U/L (30-135)
[2021-09-03 08:45] LABS: TROPONIN I 0.107 ng/ml (0.0000-0.120)
[2021-09-03] MEDS ORDERED: DEXTROSE 50%-WATER ABBOJECT IVP STA ×2 (08:53→20:04)
--- NOTE | 2021-09-03 08:58 | DI ---
EXAM: Single AP view of the chest HISTORY: Rapid breathing. COMPARISON: Chest x-ray 03/24/2021 FINDINGS: Cardiomediastinal silhouette is unremarkable. There are stable lead wires. The lungs are clear. There is no pneumothorax or effusion. The osseous structures are unremarkable. IMPRESSION: No acute cardiopulmonary process or significant interval change.
--- NOTE | 2021-09-03 09:02 | CT ---
EXAM: CT head without contrast. HISTORY: Altered mental status. COMPARISON: 02/25/2017. TECHNIQUE: Multiple axial images of the brain were obtained from the skull base through the vertex w ithout intravenous contrast. Multiplanar reformats were provided. FINDINGS: There is no intracranial hemorrhage or extraaxial collection. The holt-white differentiat ion is maintained without evidence for acute large vascular territory infarction. There are areas of periventricular and subcortical white matter low attenuation. The cortical sulci and cerebral ventr icles are symmetrically enlarged. The basal cisterns are well visualized. There is no hydrocephalus , mass effect, or midline shift. The paranasal sinuses and mastoid air cells are clear. The calvari um is intact. Atherosclerotic calcifications present. Since the prior study, there has been no sign ificant interval change. IMPRESSION: 1. No acute intracranial abnormality. 2. Chronic small vessel ischemic changes and atrophy. All CT scans are performed using dose optimization techniques as appropriate to the performed exam an d include at least one of the following: Automated exposure control, adjustment of the mA and/or kV according t o size, and the use of iterative reconstruction technique.
[2021-09-03] MEDS: ROCEPHIN 1 GM/50 ML D5W 1 GM/50 ML BAG IV SCH (09:23)
[2021-09-03] MEDS ORDERED: TYLENOL PO PRN (09:25)
[2021-09-03] MEDS ORDERED: CHOLECALCIFEROL PO SCH (09:30)
[2021-09-03] MEDS ORDERED: SODIUM CHLORIDE 1,000 ML IV SCH (09:30)
--- NOTE | 2021-09-03 09:32 | PCM ---
Chief Complaint Chief Complaint: Altered mental status, UTI History of Present Illness History of Present Illness: Pt presents from a fpc with some increased confusion as well as dark, odorous urine. Pt has an indwelling carlin catheter. She has a history or dementia but is usually somewhat interactive with staff. Today she was less active and they noted that her urine was dark and had a strong odor to it. She has had low grade fevers. No emesis. No complaints of CP or AP. He breathing has been somewhat more rapid than normal. Nothing else has made the sxs better or worse and they are mild in nature. She is a DNR. In the ER, she was noted to be dehydrated and have a UTI. She was given fluids and antibiotics. Review of Systems Constitutional: Reports Other (Unable to assess given patients altered mental status) Allergies Allergies Allergy/AdvReac Type Severity Reaction Status Date / Time Faizan Intolerance AdvReac Cough Uncoded 09/03/21 07:34 Statin Intolerance AdvReac Uncoded 09/03/21 07:34 [facility] Medical History (Updated 09/03/21 @ 09:29 by MONROE LOPEZ) FAIZAN inhibitor intolerance Bradycardia Breast tumor Congestive heart failure Degenerative joint disease Depression Diabetes mellitus Diabetic retinopathy Hypercalcemia Hypertension Macular degeneration Microscopic hematuria Open wedge compression fracture of third lumbar vertebra with delayed healing (10/12/17) Proteinuria Thyroid goiter (11/30/16) Surgical History History of section History of surgery (10/12/17) Implantation of cardiac pacemaker Status post cholecystectomy Status post hysterectomy Social History Smoking and tobacco status: Never smoker Medications Medications: Medications Generic Name Dose Route Start Last Admin Trade Name Freq PRN Reason Stop Dose Admin Acetaminophen 650 mg 09/03/21 09:25 Acetaminophen 325 Mg Tablet PO Q4H PRN fever Docusate Sodium 100 mg 09/04/21 09:00 Docusate Sodium 100 Mg Capsule PO DAILY JERRY CEFTRIAXONE/D5W 1 GM PREMIX 1 gm in 50 mls @ 75 mls/hr 09/03/21 09:00 12 09:23 Rocephin 1 Gm/50 Ml D5w IV 09/06/21 08:59 75 mls/hr DAILY JERRY Administration Sodium Chloride 1,000 mls @ 83 mls/hr 09/03/21 09:30 Sodium Chloride IV .Q12H3M JERRY Insulin Glargine unit 09/03/21 21:00 Insulin Glargine,Hum.Rec.Anlog 100 Units/Ml SUBCUT BEDTIME [facility] Losartan Potassium 50 mg 09/03/21 21:00 Losartan Potassium 25 Mg Tablet PO BID [facility] Mirtazapine 7.5 mg 09/03/21 21:00 Mirtazapine 15 Mg Tablet PO BEDTIME JERRY Non-Formulary Medication 1,250 mcg 09/03/21 09:30 Cholecalciferol (Vitamin D3) PO MONTHLY JERRY Non-Formulary Medication 5 unit 09/03/21 09:30 Insulin Asp Prt-Insulin Aspart [Novolog Mix 70-30 U-100 Insuln] SUBCUT ONCE JERRY Non-Formulary Medication 1 applic 09/03/21 21:00 Mupirocin Calcium TP BID [facility] Sertraline HCl 25 mg 09/03/21 21:00 Sertraline Hcl 50 Mg Tablet PO BEDTIME [facility] Simvastatin 10 mg 09/03/21 21:00 Simvastatin 10 Mg Tablet PO BEDTIME [facility] Body Composition Height: 5 ft 3 in Weight: 54.3 kg Body Mass Index (BMI): 21.2 Vital Signs Temperature: 97.4 F Pulse Rate: 84 Respiratory Rate: 18 Blood Pressure: 130/70 O2 Sat by Pulse Oximetry: 94 Physical Examination Appearance: Reports Ill-appearing and Thin Ill-appearing: Mild Pain Distress: None Eyes: Reports ROSENDA and EOMI ENT: Reports Not Examined Neck: Supple Respiratory: Reports Airway patent, Breath sounds clear, Breath sounds equal, Breath sounds diminished and Respirations nonlabored Cardiovascular: Reports RRR, Pulses normal, No rub and No murmur GI/: Reports Soft and Nontender Musculoskeletal: Reports ROM intact and Limited strength Skin: Reports Warm and Dry Neurological: Reports Other (A+O x1 No focal defecits. No facial droop) Psychiatric: Reports Not Examined Lab/Tests/Diagnostic Imaging Lab/Tests/Diagnostic Imaging: Lab Review 09/03/21 09/03/21 09/03/21 07:35 07:35 07:40 WBC 13.05 H RBC 4.06 L Hgb 10.4 L Hct 33.9 L MCV 83.5 MCH 25.6 L MCHC 30.7 L RDW Coeff of Momo 19.0 H Plt Count 229 Immature Gran % (Auto) 0.5 Neut % (Auto) 69.2 Lymph % (Auto) 19.6 [place] % (Auto) 5.9 Eos % (Auto) 4.4 Baso % (Auto) 0.4 Neut # (Auto) 9.0 H Lymph # (Auto) 2.6 [place] # (Auto) 0.8 Eos # (Auto) 0.6 Baso # (Auto) 0.1 Immature Gran # (Auto) 0.1 Sodium Potassium Chloride Carbon Dioxide Anion Gap BUN Creatinine Estimated GFR (MDRD) BUN/Creatinine Ratio Glucose Calcium Magnesium Total Bilirubin AST ALT Alkaline Phosphatase Total Creatine Kinase Troponin I Total Protein Albumin Globulin Albumin/Globulin Ratio Urine Color Yellow Urine Clarity Cloudy Urine pH 8.5 Ur Specific [place] 1.020 Urine Protein 3+ H Urine Glucose (UA) Negative Urine Ketones Negative Urine Blood Trace-lysed Urine Nitrite Positive H Urine Bilirubin Negative Urine Urobilinogen 0.2 Ur Leukocyte Esterase 2+ H Urine Microscopic RBC 0-2 Urine Microscopic WBC 50-100 Ur Squamous Epith Cells Not present Triple Phos Crystals 2+ Amorphous Sediment 3+ Urine Bacteria 4+ SARS CoV-2 RNA Rapid KILEY Negative 09/03/21 09/03/21 07:40 07:40 WBC RBC Hgb Hct MCV MCH MCHC RDW Coeff of Momo Plt Count Immature Gran % (Auto) Neut % (Auto) Lymph % (Auto) [place] % (Auto) Eos % (Auto) Baso % (Auto) Neut # (Auto) Lymph # (Auto) [place] # (Auto) Eos # (Auto) Baso # (Auto) Immature Gran # (Auto) Sodium 162.5 H* Potassium 3.86 Chloride 132.2 H* Carbon Dioxide 25.9 Anion Gap 8.26 BUN 81.0 H* Creatinine 1.73 H Estimated GFR (MDRD) 28.00 BUN/Creatinine Ratio 46.82 Glucose 67.9 L Calcium 8.67 Magnesium 2.62 H Total Bilirubin 0.28 AST 17.5 ALT 12.6 Alkaline Phosphatase 89.3 Total Creatine Kinase 29.5 L Troponin I 0.107 Total Protein 6.20 L Albumin 2.95 L Globulin 3.25 Albumin/Globulin Ratio 0.90 Urine Color Urine Clarity Urine pH Ur Specific [place] Urine Protein Urine Glucose (UA) Urine Ketones Urine Blood Urine Nitrite Urine Bilirubin Urine Urobilinogen Ur Leukocyte Esterase Urine Microscopic RBC Urine Microscopic WBC Ur Squamous Epith Cells Triple Phos Crystals Amorphous Sediment Urine Bacteria SARS CoV-2 RNA Rapid KILEY Orders Category Date Time Status ADMIT PATIENT INPATIENT .TO MEDS[facility] (MONITORED BED) ADMISSION 09/03/21 09:22 Active EKG-(ED ONLY) Stat CARDIO 09/03/21 08:22 Completed ACTIVITY .Complete BR CARE 09/03/21 09:22 Active GIVE HS SNACK 2100 CARE 09/03/21 09:23 Active INTAKE & OUTPUT Q8HR CARE 09/03/21 09:22 Active REMINDER: Notify Provider if temp >101.5 PRN CARE 09/03/21 09:23 Active REMINDER:Notify Provider Pulse<60 or>130 PRN CARE 09/03/21 09:23 Active REMINDER:Notify if BP<90/60 or >170/110 PRN CARE 09/03/21 09:23 Active TELEMETRY MONITORING TELE CARE 09/03/21 09:22 Active VITAL SIGNS Q8HR CARE 09/03/21 09:22 Active CLEAR LIQUID DIET DIETARY 09/03/21 Breakfast Ordered HS SNACK DIETARY 09/03/21 Dinner Ordered BLOOD CULTURE (ED ONLY) Stat LAB 09/03/21 09:24 Received CBC W/ AUTO DIFF DAILY@0600 LAB 09/04/21 06:00 Ordered CBC W/ AUTO DIFF Stat LAB 09/03/21 07:40 Completed CK [CREATINE KINASE] Stat LAB 09/03/21 07:40 Completed CMP [COMPREHENSIVE METABOLIC PANEL] DAILY@0600 LAB 09/04/21 06:00 Ordered COMPREHENSIVE METABOLIC PANEL Stat LAB 09/03/21 07:40 Completed COVID [SARS COV-2 RNA RAPID KILEY] Stat LAB 09/03/21 07:35 Completed LACTIC ACID Stat LAB 09/03/21 09:15 Received MAGNESIUM Stat LAB 09/03/21 07:40 Completed TROPONIN I Stat LAB 09/03/21 07:40 Completed URINALYSIS C & S IF INDICATED Stat LAB 09/03/21 07:35 Completed URINE CULTURE Stat LAB 09/03/21 07:35 Received Acetaminophen [Tylenol] MEDS 09/03/21 09:25 Ordered 650 mg PO Q4H PRN Ceftriaxone/D5w 1 gm Premix [Rocephin 1 gm/50 ml D5w] MEDS 09/03/21 09:00 Active 1 gm in 50 ml IV DAILY Dextrose 50 % in Water [Dextrose 50%-Water Abboject] MEDS 09/03/21 08:53 Discontinued 25 ml IVP ONCE STA Docusate Sodium [Colace] MEDS 09/04/21 09:00 Ordered 100 mg PO DAILY Insulin Glargine,Hum.rec.anlog [Lantus] MEDS 09/03/21 21:00 Ordered DOSE unit SUBCUT BEDTIME Losartan Potassium [Cozaar] MEDS 09/03/21 21:00 Ordered 50 mg PO BID Mirtazapine [Remeron] MEDS 09/03/21 21:00 Ordered 7.5 mg PO BEDTIME Sertraline HCl [Zoloft] MEDS 09/03/21 21:00 Ordered 25 mg PO BEDTIME Simvastatin [Zocor] MEDS 09/03/21 21:00 Ordered 10 mg PO BEDTIME Sodium Chloride 0.9% [Sodium Chloride] 1,000 ml MEDS 09/03/21 09:30 Ordered IV 83 mls/hr Sodium Chloride 0.9% [Sodium Chloride] 1,000 ml MEDS 09/03/21 07:28 Discontinued IV BOLUS cholecalciferol (vitamin D3) MEDS 09/03/21 09:30 Ordered 1,250 mcg PO MONTHLY insulin asp prt-insulin aspart [Novolog Mix 70-30 U-100 MEDS 09/03/21 09:30 Ordered Insuln] 5 unit SUBCUT ONCE mupirocin calcium MEDS 09/03/21 21:00 Ordered 1 applic TP BID CHEST, 1V AP ONLY Stat RADS 09/03/21 07:[address] HEAD W/O CONTRAST Stat RADS 09/03/21 08:22 Completed Medications Generic Name Dose Route Start Last Admin Trade Name Freq PRN Reason Stop Dose Admin Acetaminophen 650 mg 09/03/21 09:25 Acetaminophen 325 Mg Tablet PO Q4H PRN fever Docusate Sodium 100 mg 09/04/21 09:00 Docusate Sodium 100 Mg Capsule PO DAILY JERRY CEFTRIAXONE/D5W 1 GM PREMIX 1 gm in 50 mls @ 75 mls/hr 09/03/21 09:00 09/03/21 09:23 Rocephin 1 Gm/50 Ml D5w IV 09/06/21 08:59 75 mls/hr DAILY JERRY Administration Sodium Chloride 1,000 mls @ 83 mls/hr 09/03/21 09:30 Sodium Chloride IV .Q12H3M JERRY Insulin Glargine unit 09/03/21 21:00 Insulin Glargine,Hum.Rec.Anlog 100 Units/Ml SUBCUT BEDTIME JERRY Losartan Potassium 50 mg 09/03/21 21:00 Losartan Potassium 25 Mg Tablet PO BID JERRY Mirtazapine 7.5 mg 09/03/21 21:00 Mirtazapine 15 Mg Tablet PO BEDTIME JERRY Non-Formulary Medication 1,250 mcg 09/03/21 09:30 Cholecalciferol (Vitamin D3) PO MONTHLY JERRY Non-Formulary Medication 5 unit 09/03/21 09:30 Insulin Asp Prt-Insulin Aspart [Novolog Mix 70-30 U-100 Insuln] SUBCUT ONCE JERRY Non-Formulary Medication 1 applic 09/03/21 21:00 Mupirocin Calcium TP BID JERRY Sertraline HCl 25 mg 09/03/21 21:00 Sertraline Hcl 50 Mg Tablet PO BEDTIME JERRY Simvastatin 10 mg 09/03/21 21:00 Simvastatin 10 Mg Tablet PO BEDTIME JERRY Discontinued Medications Generic Name Dose Route Start Last Admin Trade Name Freq PRN Reason Stop Dose Admin Dextrose 25 ml 09/03/21 08:53 09/03/21 09:22 Dextrose 50 % In Water 50 Ml Disp.Syrin IVP 09/03/21 08:54 25 ml ONCE STA Administration Sodium Chloride 1,000 mls @ 1,000 mls/hr 09/03/21 07:28 09/03/21 07:50 Sodium Chloride IV 09/03/21 08:27 1,000 mls/hr BOLUS STA Administration Assessment (1) Altered mental status: Status: Acute Code(s): R41.82 - Altered mental status, unspecified SNOMED Code(s): 343167499 (2) Acute UTI: Status: Acute Code(s): N39.0 - Urinary tract infection, site not specified SNOMED Code(s): 175488188 (3) Acute kidney injury: Status: Acute Code(s): N17.9 - Acute kidney failure, unspecified SNOMED Code(s): 22236589 (4) Acute dehydration: Status: Acute Code(s): E86.0 - Dehydration SNOMED Code(s): 64624424 (5) Acute hypernatremia: Status: Acute Code(s): E87.0 - Hyperosmolality and hypernatremia SNOMED Code(s): 5985477 Plan Plan: 1. Altered mental status: This is worse than basaeline. Likely secondary to the UTI and possible dehydration. Will address underlying issues. 2. UTI: Ceftriaxone daily 3. Dehydration/Hypernatremia/OMAR: Fluids and daily labs to assure resolution.
[2021-09-03 12:09] VITALS: BMI 23.1
[2021-09-03] MEDS: HUMALOG SUBCUT SCH ×2 (12:44→17:06)
[2021-09-03] MEDS ORDERED: DEXTROSE 50%-WATER ABBOJECT IVP ONE (12:57)
[2021-09-03] MEDS: LANTUS SUBCUT SCH (20:08)
[2021-09-03] MEDS ORDERED: DEXTROSE 5%-NS IV SOLUTION 1,000 ML IV SCH (20:30)
[2021-09-03] MEDS ORDERED: BACTROBAN TP SCH (21:00)
[2021-09-03] MEDS ORDERED: LANTUS SUBCUT SCH (21:00)
[2021-09-03] MEDS ORDERED: LOPRESSOR IVP STA (21:45)
[2021-09-03] MEDS: ZOLOFT PO SCH (22:00)
[2021-09-03] MEDS: REMERON PO SCH (22:00)
[2021-09-03] MEDS: COZAAR PO SCH (22:00)
[2021-09-03] MEDS: ZOCOR PO SCH (22:00)
[2021-09-04 05:36] LABS: BASOPHILS % (AUTO) 0.4 % (0.0-3.0); EOSINOPHILS # (AUTO) 0.5 K/ul (0.0-0.7); EOSINOPHILS % (AUTO) 5.1 % (0.0-7.0); HEMATOCRIT 30.6 % (37.0-47.0); HEMOGLOBIN 9.4 g/dl (12.0-16.0); IMMATURE GRANULOCYTE % (AUTO) 0.4 % (0.0-5.0); LYMPHOCYTES # (AUTO) 1.7 K/uL (0.60-3.4); LYMPHOCYTES % (AUTO) 17.3 (10.0-50.0); MEAN CORPUSCULAR HEMOGLOBIN 25.8 pg (27.0-31.0); MEAN CORPUSCULAR HGB CONC 30.7 (31.8-35.4); MEAN CORPUSCULAR VOLUME 84.1 fl (81.0-99.0); MONOCYTES # (AUTO) 0.6 K/uL (0.4-2.0); MONOCYTES % (AUTO) 6.6 (0-10); NEUTROPHILS # (AUTO) 6.7 K/ul (2.0-6.9); NEUTROPHILS % (AUTO) 70.2 % (42.2-75.2); PLATELET COUNT 201 10^3/uL (140-440); RDW COEFFICIENT OF VARIATION 19.5 % (11.6-14.8); RED BLOOD COUNT 3.64 10^6/ul (4.20-5.40); WHITE BLOOD COUNT 9.54 K/ul (4.6-10.2)
[2021-09-04 05:53] LABS: ALANINE AMINOTRANSFERASE 11.2 U/L (0-35); ALBUMIN 2.63 g/dL (3.5-5.0); ALKALINE PHOSPHATASE 74.6 U/L (53-141); ASPARTATE AMINO TRANSFERASE 20.7 U/L (14-36); BILIRUBIN,TOTAL 0.2 mg/dL (0.2-1.3); CALCIUM 8.03 mg/dL (8.4-10.2); CARBON DIOXIDE 21.2 mmol/L (22-30.0); CREATININE 1.31 mg/dL (0.60-1.30); GLUCOSE 148.8 mg/dL (74-106); POTASSIUM 3.67 mmol/L (3.5-5.1); TOTAL PROTEIN 5.75 g/dL (6.3-8.2)
[2021-09-04 05:56] LABS: CHLORIDE 136.9 mmol/L (98-107); SODIUM 162.9 mmol/L (134.5-145)
[2021-09-04] MEDS: DEXTROSE 5%-WATER IV SOLN 1,000 ML IV SCH ×2 (06:16→17:49)
[2021-09-04] MEDS ORDERED: DEXTROSE 5%-WATER IV SOLN 500 ML IV SCH (06:30)
[2021-09-04] MEDS: ROCEPHIN 1 GM/50 ML D5W 1 GM/50 ML BAG IV SCH (08:24)
[2021-09-04] MEDS: COZAAR PO SCH ×2 (08:24→20:35)
[2021-09-04] MEDS: COLACE PO SCH (08:24)
[2021-09-04] MEDS: BACTROBAN TP SCH ×3 (08:25→20:37)
[2021-09-04] MEDS: HUMALOG SUBCUT SCH ×3 (08:51→17:21)
[2021-09-04] MEDS ORDERED: BACTROBAN TP SCH (09:00)
[2021-09-04] MEDS: LANTUS SUBCUT SCH (20:34)
[2021-09-04] MEDS: ZOLOFT PO SCH (20:35)
[2021-09-04] MEDS: ZOCOR PO SCH (20:35)
[2021-09-04] MEDS: REMERON PO SCH (20:35)
[2021-09-05 04:52] LABS: BASOPHILS % (AUTO) 0.4 % (0.0-3.0); EOSINOPHILS # (AUTO) 0.5 K/ul (0.0-0.7); EOSINOPHILS % (AUTO) 4.6 % (0.0-7.0); HEMATOCRIT 30.3 % (37.0-47.0); HEMOGLOBIN 8.9 g/dl (12.0-16.0); IMMATURE GRANULOCYTE # (AUTO) 0.1 (0.0-1.0); IMMATURE GRANULOCYTE % (AUTO) 0.5 % (0.0-5.0); LYMPHOCYTES # (AUTO) 2.3 K/uL (0.60-3.4); LYMPHOCYTES % (AUTO) 22.5 (10.0-50.0); MEAN CORPUSCULAR HEMOGLOBIN 25.3 pg (27.0-31.0); MEAN CORPUSCULAR HGB CONC 29.4 (31.8-35.4); MEAN CORPUSCULAR VOLUME 86.1 fl (81.0-99.0); MONOCYTES # (AUTO) 0.5 K/uL (0.4-2.0); MONOCYTES % (AUTO) 5.1 (0-10); NEUTROPHILS # (AUTO) 6.8 K/ul (2.0-6.9); NEUTROPHILS % (AUTO) 66.9 % (42.2-75.2); PLATELET COUNT 175 10^3/uL (140-440); RDW COEFFICIENT OF VARIATION 19.8 % (11.6-14.8); RED BLOOD COUNT 3.52 10^6/ul (4.20-5.40); WHITE BLOOD COUNT 10.17 K/ul (4.6-10.2)
[2021-09-05] MEDS: DEXTROSE 5%-WATER IV SOLN 1,000 ML IV SCH ×2 (04:56→05:42)
[2021-09-05 05:04] LABS: ALANINE AMINOTRANSFERASE 10.7 U/L (0-35); ALBUMIN 2.61 g/dL (3.5-5.0); ALKALINE PHOSPHATASE 72.8 U/L (53-141); ASPARTATE AMINO TRANSFERASE 15.4 U/L (14-36); BILIRUBIN,TOTAL 0.22 mg/dL (0.2-1.3); BLOOD UREA NITROGEN 44.6 mg/dL (7-17); CALCIUM 7.79 mg/dL (8.4-10.2); CARBON DIOXIDE 21.1 mmol/L (22-30.0); CREATININE 1.2 mg/dL (0.60-1.30); GLUCOSE 184.9 mg/dL (74-106); POTASSIUM 3.41 mmol/L (3.5-5.1); SODIUM 152.4 mmol/L (134.5-145); TOTAL PROTEIN 5.51 g/dL (6.3-8.2)
[2021-09-05 05:06] LABS: CHLORIDE 127.1 mmol/L (98-107)
[2021-09-05] MEDS: VASOTEC IV IVP PRN (05:33)
[2021-09-05] MEDS: HUMALOG SUBCUT SCH ×3 (08:23→17:27)
[2021-09-05] MEDS: ROCEPHIN 1 GM/50 ML D5W 1 GM/50 ML BAG IV SCH (08:24)
[2021-09-05] MEDS: COZAAR PO SCH ×2 (08:24→20:20)
[2021-09-05] MEDS: COREG PO SCH ×2 (08:24→17:25)
[2021-09-05] MEDS: COLACE PO SCH (08:25)
[2021-09-05] MEDS: BACTROBAN TP SCH ×2 (08:33→20:21)
--- NOTE | 2021-09-05 10:46 | DI ---
EXAM: Chest one view, frontal view only. HISTORY: Abnormal lung sounds. Shortness of breath. COMPARISON: 09/03/2021. FINDINGS: Left-sided pacemaker noted. Heart size normal. Stable left infrahilar scarring. No new opacity, pleural effusion or pneumothorax. No acute osseous abnormality. IMPRESSION: No acute process.
[2021-09-05] MEDS ORDERED: DEXTROSE 5%-WATER IV SOLN 1,000 ML IV SCH (18:30)
[2021-09-05] MEDS ORDERED: INFUVITE ADULT IV SCH (19:00)
[2021-09-05] MEDS ORDERED: WATER IV SCH (19:00)
[2021-09-05] MEDS ORDERED: DEXTROSE IV SCH (19:00)
[2021-09-05] MEDS ORDERED: INFUVITE ADULT IV ONE (20:03)
[2021-09-05] MEDS: ZOCOR PO SCH (20:20)
[2021-09-05] MEDS: ZOLOFT PO SCH (20:20)
[2021-09-05] MEDS: REMERON PO SCH (20:20)
[2021-09-05] MEDS: LANTUS SUBCUT SCH (20:22)
[2021-09-06] MEDS: COLACE PO SCH (09:40)
[2021-09-06] MEDS: COREG PO SCH ×2 (09:40→17:05)
[2021-09-06] MEDS: COZAAR PO SCH ×2 (09:40→21:43)
[2021-09-06] MEDS: HUMALOG SUBCUT SCH ×3 (09:41→18:12)
[2021-09-06] MEDS: BACTROBAN TP SCH ×2 (09:59→21:48)
[2021-09-06] MEDS: ROCEPHIN 1 GM/50 ML D5W 1 GM/50 ML BAG IV SCH (10:35)
[2021-09-06] MEDS: DEXTROSE 5%-WATER IV SOLN 1,000 ML IV SCH ×2 (10:35→11:54)
[2021-09-06] MEDS: REMERON PO SCH (21:43)
[2021-09-06] MEDS: ZOCOR PO SCH (21:44)
[2021-09-06] MEDS: LANTUS SUBCUT SCH (21:44)
[2021-09-06] MEDS: ZOLOFT PO SCH (21:44)
[2021-09-07 05:39] LABS: ABG O2 HGB 92.4 % (95-100); ABG PH 7.38 (7.35-7.45); BEecf -3.2 (-2.0-3.0); COHb 1.9 (0.5-1.5); HCO3 21.9 (21-28); MetHb 0.6 (0-1.5); sO2 89.6 % (94-98); tHb 6.2 g/dl (11.7-17.4)
[2021-09-07 07:32] LABS: BASOPHILS % (AUTO) 0.3 % (0.0-3.0); EOSINOPHILS # (AUTO) 0.4 K/ul (0.0-0.7); EOSINOPHILS % (AUTO) 4.2 % (0.0-7.0); HEMATOCRIT 28.6 % (37.0-47.0); HEMOGLOBIN 9.1 g/dl (12.0-16.0); IMMATURE GRANULOCYTE # (AUTO) 0.1 (0.0-1.0); IMMATURE GRANULOCYTE % (AUTO) 0.7 % (0.0-5.0); LYMPHOCYTES # (AUTO) 1.6 K/uL (0.60-3.4); LYMPHOCYTES % (AUTO) 17.9 (10.0-50.0); MEAN CORPUSCULAR HEMOGLOBIN 25.9 pg (27.0-31.0); MEAN CORPUSCULAR HGB CONC 31.8 (31.8-35.4); MEAN CORPUSCULAR VOLUME 81.5 fl (81.0-99.0); MONOCYTES # (AUTO) 0.4 K/uL (0.4-2.0); MONOCYTES % (AUTO) 4.7 (0-10); NEUTROPHILS # (AUTO) 6.6 K/ul (2.0-6.9); NEUTROPHILS % (AUTO) 72.2 % (42.2-75.2); PLATELET COUNT 148 10^3/uL (140-440); RDW COEFFICIENT OF VARIATION 18.6 % (11.6-14.8); RED BLOOD COUNT 3.51 10^6/ul (4.20-5.40); WHITE BLOOD COUNT 9.12 K/ul (4.6-10.2)
[2021-09-07 07:44] LABS: ALANINE AMINOTRANSFERASE 9.4 U/L (0-35); ALBUMIN 2.4 g/dL (3.5-5.0); ALKALINE PHOSPHATASE 81.2 U/L (53-141); ASPARTATE AMINO TRANSFERASE 17.7 U/L (14-36); BILIRUBIN,TOTAL 0.25 mg/dL (0.2-1.3); CALCIUM 7.89 mg/dL (8.4-10.2); CARBON DIOXIDE 22.6 mmol/L (22-30.0); CHLORIDE 115.4 mmol/L (98-107); CREATININE 1.12 mg/dL (0.60-1.30); GLUCOSE 178.2 mg/dL (74-106); POTASSIUM 3.26 mmol/L (3.5-5.1); SODIUM 141.3 mmol/L (134.5-145); TOTAL PROTEIN 5.36 g/dL (6.3-8.2)
[2021-09-07] MEDS: COZAAR PO SCH ×2 (08:26→21:27)
[2021-09-07] MEDS: COLACE PO SCH (08:26)
[2021-09-07] MEDS: COREG PO SCH ×2 (08:26→17:14)
[2021-09-07] MEDS: HUMALOG SUBCUT SCH ×3 (08:30→17:15)
[2021-09-07] MEDS: ROCEPHIN 1 GM/50 ML D5W 1 GM/50 ML BAG IV SCH (08:32)
[2021-09-07] MEDS: DEXTROSE 5%-WATER IV SOLN 1,000 ML IV SCH ×2 (11:10)
[2021-09-07] MEDS: REMERON PO SCH (21:27)
[2021-09-07] MEDS: ZOCOR PO SCH (21:27)
[2021-09-07] MEDS: ZOLOFT PO SCH (21:27)
[2021-09-07] MEDS: LANTUS SUBCUT SCH (23:53)
[2021-09-08] MEDS: VASOTEC IV IVP PRN ×2 (00:04→05:35)
[2021-09-08] MEDS: DEXTROSE 5%-WATER IV SOLN 1,000 ML IV SCH (01:37)
[2021-09-08 05:13] LABS: BASOPHILS % (AUTO) 0.1 % (0.0-3.0); EOSINOPHILS # (AUTO) 0.2 K/ul (0.0-0.7); EOSINOPHILS % (AUTO) 1.5 % (0.0-7.0); HEMATOCRIT 28.1 % (37.0-47.0); HEMOGLOBIN 9.2 g/dl (12.0-16.0); IMMATURE GRANULOCYTE % (AUTO) 0.3 % (0.0-5.0); LYMPHOCYTES # (AUTO) 1.3 K/uL (0.60-3.4); LYMPHOCYTES % (AUTO) 10.9 (10.0-50.0); MEAN CORPUSCULAR HGB CONC 32.7 (31.8-35.4); MEAN CORPUSCULAR VOLUME 79.4 fl (81.0-99.0); MONOCYTES # (AUTO) 0.6 K/uL (0.4-2.0); MONOCYTES % (AUTO) 4.8 (0-10); NEUTROPHILS # (AUTO) 9.5 K/ul (2.0-6.9); NEUTROPHILS % (AUTO) 82.4 % (42.2-75.2); PLATELET COUNT 156 10^3/uL (140-440); RDW COEFFICIENT OF VARIATION 18.3 % (11.6-14.8); RED BLOOD COUNT 3.54 10^6/ul (4.20-5.40); WHITE BLOOD COUNT 11.57 K/ul (4.6-10.2)
[2021-09-08 05:17] LABS: ALANINE AMINOTRANSFERASE 9.4 U/L (0-35); ALBUMIN 2.53 g/dL (3.5-5.0); ALKALINE PHOSPHATASE 81.6 U/L (53-141); ASPARTATE AMINO TRANSFERASE 19.2 U/L (14-36); BILIRUBIN,TOTAL 0.34 mg/dL (0.2-1.3); BLOOD UREA NITROGEN 25.8 mg/dL (7-17); CALCIUM 7.94 mg/dL (8.4-10.2); CREATININE 1.05 mg/dL (0.60-1.30); GLUCOSE 170.9 mg/dL (74-106); POTASSIUM 3.26 mmol/L (3.5-5.1); SODIUM 137.6 mmol/L (134.5-145); TOTAL PROTEIN 5.44 g/dL (6.3-8.2)
[2021-09-08] MEDS: COLACE PO SCH (09:38)
[2021-09-08] MEDS: COREG PO SCH (09:38)
[2021-09-08] MEDS: HUMALOG SUBCUT SCH ×2 (09:39→12:25)
[2021-09-08] MEDS: COZAAR PO SCH (09:39)
[2021-09-08] MEDS: ROCEPHIN 1 GM/50 ML D5W 1 GM/50 ML BAG IV SCH (09:45)
[2021-09-08 12:36] LABS: BILIRUBIN,URINE Negative (NEGATIVE); CLARITY,URINE Clear (CLEAR); COLOR,URINE Yellow (YELLOW); GLUCOSE, URINE (UA) Trace (NEGATIVE); KETONES,URINE Negative (NEGATIVE); LEUKOCYTE ESTERASE ,URINE Trace (NEGATIVE); NITRITE,URINE Negative (NEGATIVE); PH,URINE 5.5 (5-9); PROTEIN,URINE 2+ (NEGATIVE); URINE, BLOOD Trace-intact (NEGATIVE); UROBILINOGEN,URINE 0.2 (0.2)
[2021-09-08 12:39] LABS: BACTERIA,URINE 2+ (NOT PRESENT); FINE GRANULAR CASTS,URINE 0-2 (NOT PRESENT)
[2021-09-08 14:37] VITALS: BP 145/64; TEMP 97.7
--- NOTE | 2021-09-09 12:53 | HP ---
DATE OF SERVICE: 09/03/2021 CHIEF COMPLAINT: Increasing lethargy, low grade temperature and abnormal urinalysis HISTORY OF PRESENT ILLNESS: The patient is not able to provide any history. This patient had been a resident of [facility] for several years. She severe dementia with no orientation. She was eating however lately the patient had stopped eating. She had been diabetic. The patient today was found to have more lethargy, low grade temperature and dark urine which is abnormal. Also had hypertension. She was then sent to the emergency room and was found to have severe electrolyte imbalance with pre-renal azotemia or EKI and also urinary tract infection. Urinalysis on the outpatient showed gram negative Klebsiella and sensitive to Rocephin. This patient was given Rocephin at the emergency room prior to admission. 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 She does follow some verbal commands before. MEDICATIONS: Dulcolax 10mg PRN Vitamin D 3 1250mcg monthly Vitamin B12 1000mcg IM monthly Docusate sodium 200mg daily Zoloft 12.5mg at bedtime Insulin Aspart 5 unit subcutaneously three times a day Insulin Glargine 20 units subcutaneously at bedtime Simvastatin 10mg at bedtime Mupirocin calcium 2% topical cream Mirtazapine 7.5mg at bedtime Losartan 50mg twice a day Tylenol 650mg Q 4 hour PRN ALLERGIES: Intolerance to statin with higher dose Intolerance to mir inhibitor REVIEW OF SYSTEMS: The patient is not verbal PHYSICAL EXAMINATION: GENERAL: 89 year old female who is lethargic, not responsive to verbal stimulus. Not dyspneic or tachypneic with no cyanosis. VITAL SIGNS: Temperature 97.4, pulse 84, respiratory rate 16, blood pressure 130/70 and oxygen saturation 94% at room air. HEAD: unremarkable FACE: Symmetrical and equal except for the crusted ulceration in the right upper lip. No cyanosis NECK: Crusting as well as ulcerations in the right side of the neck. No bruit. No masses CHEST: Essentially symmetrical and equal BREAST: No obvious tumor or masses more so with the left. LUNG: Breath sounds are heard in both sides with no obvious rales or wheezing. HEART: Audible, slightly distant and regular ABDOMEN: Flat, soft with no remarkable tenderness. No guarding. Bowl sounds are active. No masses palpable. PELVIC/RECTAL: Not done LOWER EXTREMITIES: Symmetrical and equal with no edema. Leg had protective garment UPPER EXTREMITIES: Symmetrical and equal. LABS: CBC is slightly elevated WBC 13,050, hgb 10.4, hct 32.9, MCV 83.5, MCH 25.6, plt count normal 249,000. Urine abnormal 50-100 WBC, No squamous epithelium, 2+ crystals, 3+ Amorphous sediment, 4+ bacteria, leukocyte esterase 2+, nitrate positive. Chemistry is Sodium 162.5, potassium 3.86, chloride 132.2, carbon dioxide 25.9, iron gap 8.26, BUN 81, creatinine 1.53, EGFR 28, CT normal, Troponin normal. ASSESSMENT: 1. Severe electrolyte imbalance 2. Dehydration 3. Pre-renal azotemia versus EKI 4. Acute urinary tract infection 5. History of diabetes Mellitus, insulin dependent 6. 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 History of heart failure 8. History of depression PROGNOSIS: Poor TIME SPENT: GREATER THAN 65 MINUTES MTDD
--- NOTE | 2021-09-09 13:13 | DS ---
DATE OF SERVICE: 09/08/2021 FINAL DIAGNOSES: 1. Dehydration 2. Severe electrolyte imbalance corrected 3. Pre-renal azotemia or EKI 4. Chronic kidney disease stage III 5. Diabetes Mellitus, insulin dependant 6. Total blindness secondary to diabetes Mellitus 7. Breast tumor, left with spontaneous resolution 8. History of depression 9. Reduced oral intake, solid or liquids. The longterm is advised to try to get more liquids if possible. BRIEF HISTORY OF PRESENT ILLNESS/HOSPITAL COURSE: 89 year old female who is a resident of [facility] was noted to have a low grade temperature, more lethargic and not eating and the urine was fowl smelling and much darker in color. The patient was then sent to the emergency room for evaluation and the patient was found to have electrolyte imbalance, dehydration and urinary tract infection. He had slight leukocytosis. Chest x-ray showed no acute pneumonia or pulmonary problems and the CT scan of the head showed no acute intracranial process. The patient was hydrated with intravenous fluids initially with normal saline followed by D5 W. The hypernatremia and hyperchloremia had improved slowly over time and returned close to normal on the day of discharge. BUN has returned towards normal although it did come to normal but markedly improved and the creatinine returned to normal and the GFR had improved. The patient however did eat very small amount of breakfast and I had discussed the prognosis with the patient with the grandson and [id number]. They were agreeable to the concept of Hospice. The orders will return to the longterm and also to consult hospice but to notify the family which Hospice they would like to consider. This patient would be given a pureed diet and the insulin will be discontinued as well as Simvastatin. Zoloft is also discontinued. We will increase the Vitamin B injectable to weekly instead of monthly and see if that would improve the problem. Now has rales on both lung dinh but the vital signs are more or less normal. Did receive Rocephin intravenously daily since 09/03/21 till today. TIME SPENT: GREATER THAN 30 MINUTES MTDD
--- NOTE | 2021-09-09 13:48 | PN ---
DATE OF SERVICE: 09/04/2021 SUBJECTIVE: The patient seems to be slightly responsive to verbal commands but still nonverbal. She makes some sounds when you call her name. Her skin turgor is better. WBC is back to normal, 9,540, hgb down with some hydration, sodium slightly higher 162.9, potassium 3.67, chloride is higher 136.9. Co2 21.2, BUN 61 lower than yesterday. Creatinine 1.31 lower than yesterday and GFR is slightly higher 38 from 28. Sugar 148.8. Lactic acid was normal on admission. Total protein and albumin is low, it was low on admission and is now lower. LUNGS: Fairly clear to auscultation in both sides although the patient doesn't take any deep breaths on command. HEART: Audible and slightly distant and regular ABDOMEN: Non-tender LOWER EXTREMITIES: No edema The patient's general appearance is better. MTDD
--- NOTE | 2021-09-09 13:55 | PN ---
DATE OF SERVICE: 09/05/2021 SUBJECTIVE: The patient was given intravenous fluids, now consisting of D5W. The sodium is lower 152 from 162. Potassium slightly lower 3.41, chloride lower 127 from 136. BUN down further to 44.6, creatinine down to 1.2 and EGF higher at 42. Sugar is slightly elevated at 184. The patient does open her eyes with some verbal stimulation but nonverbal. She is not dyspneic nor tachypneic. MTDD
--- NOTE | 2021-09-09 14:01 | PN ---
DATE OF SERVICE: 09/06/2021 SUBJECTIVE: The patient's mental status is about the same. This patient had an initial CT scan of the head on admission to the emergency room and it showed no acute intracranial process. The chest x-ray that was repeated yesterday has no change from admission chest x-ray. LUNGS: Still fairly clear to auscultation GENERAL APPEARANCE: Good. Skin turgor is better VITALS: Temperature 98, blood pressure 128/66, pulse 60, respiratory rate 16, oxygen saturation 95% No nasal oxygen The patient is continuing to receive D5W as well as Rocephin 1 gram intravenously. CONDITION: Improved and nearing her best recovery. We will continue the antibiotics. BETTY
--- NOTE | 2021-09-09 14:39 | PN ---
DATE OF SERVICE: 09/07/2021 SUBJECTIVE: The patient does open her eye better in the morning. She mumbles but not legible. VITALS: Temperature 97.6, blood pressure 165/70, pulse 74, respiratory rate 18 and oxygen saturation 99% with 2 liters of nasal oxygen. Arterial blood gasses did show hypoxemia. Oxygen saturation of 89% at room air. 2 liters of nasal oxygen was applied. LUNGS: Fine rales at the bases. No wheezing. The patient is not dyspneic or tachypneic with no cyanosis HEART: Audible and regular GENERAL APPEARANCE: Skin turgor looks better and the color is better. Sodium has changed somewhat but not anymore different than yesterday. I had called grandson, Jesse and talked to Mira his and I discussed with them with regards to sending her home the next day, Wednesday or possibly Wednesday. I did advise them Hospice and they were willing to consider that. I told them that Carmen had not been eating and we could not continue giving her IVs or else if we have to maintain her nutrition as well as hydration they will have to insert a feeding gastrostomy and they did not desire that to be done. This patient was a DNR. The patient will most likely be discharged tomorrow if condition are the same. BETTY
--- NOTE | 2021-09-09 14:50 | PN ---
DATE OF SERVICE: 09/08/2021 SUBJECTIVE: The patient was examined about 2:30 this afternoon and the patient not dyspneic or tachypneic with a good color but would not open her eyes. The nurse told me that she did open her eyes this morning and was mumbling. She did eat a little bit of her breakfast. Urinalysis has improved remarkably and the patient had received Rocephin 1 gram since 09/03/2021 until today. No further antibiotics will be given. The patient now has rales in both lungs dinh, fine probably somewhat due to hydration but since this patient is not eating I would with hold giving a diuretic at this time. She will be discharged to the shelter with orders. No insulin will be given since the patient is not eating. We might do an Accu-check maybe twice a day to see where the sugar is otherwise no insulin will be given unless the blood sugar is high. Tried to feed her with a pureed diet and the Simvastatin will be discontinue as well as the insulin Glargine and Aspart. VITALS: Temperature 97.7, blood pressure 145/64, pulse 60, respiratory rate 18, oxygen saturation 97 with 2 liters of nasal oxygen. This patient is also breathing through the mouth. The patient's sodium is now normal 137.6 and chloride is close to normal at 113, potassium is slightly normal at 3.26. Carbon dioxide is 21 slightly lower and the BUN is close to normal at 25.8, creatinine 1.05 and EGFR is 49. Sugar today was 170.9. This patient is receiving intravenous fluid with dextrose. WBC went up slightly higher to 11,570 from normal. Urinalysis Ketones are negative, Nitrate negative. It was previously positive. Leukocyte esterase now trace from 2+. WBC 2-5 from 50-100 and bacteria 2+ from 4+. MTDD
[2021-10-01] MEDS ORDERED: DRISDOL PO SCH (09:00)
== END 2021-09-08 16:25 | DRG 683 ==
LOC: ED 07:26 → MEDSURG A 09:40
PROVIDERS: ADMIT General Practice; ATTEND General Practice
DX: N39.0 Urinary tract infection, site not specified; E86.0 Dehydration; E11.39 Type 2 diabetes mellitus with other diabetic ophthalmic complication; Z51.81 Encounter for therapeutic drug level monitoring; E87.0 Hyperosmolality and hypernatremia; Z79.899 Other long term (current) drug therapy; E87.8 Other disorders of electrolyte and fluid balance, not elsewhere classified; B96.1 Klebsiella pneumoniae [K. pneumoniae] as the cause of diseases classified elsewhere; N17.9 Acute kidney failure, unspecified; N18.30 Chronic kidney disease, stage 3 unspecified